=== PATIENT | female | born 1950 | race Caucasian/White ===

== ENCOUNTER 2016-07-25 18:05 | Inpatient (IN) | payer MEDICARE, OTHER ==
--- NOTE | 2016-07-25 18:27 | PDOC ---
History of Present Illness - General History Source: Patient Exam Limitations: No Limitations <Walter Suero - Last Filed: 07/25/16 22:54> <CamiloVanessa Corrie - Last Filed: 07/26/16 02:18> - General Chief Complaint: Chest Pain Stated Complaint: CHEST PAIN/PALPITATION Time Seen by Provider: 07/25/16 18:19 - History of Present Illness Initial Comments: 07/25/16 18:55 The patient is a 65 year old female, with a significant past medical history of AR s/p catherization. AFIB, HTN, kidney stones and HLD, who presents to the emergency department with chest pain and palpitations since 10am this morning. She describes her chest pain as ranging from moderate to severe, without radiation or modifying factors. She notes that the pain started gradually but has progressed. She denies any exertion or stress. She reports that she took all her medications today, including aspiring 81 mg. The patient denies shortness of breath, headache and dizziness. Denies fever, chills, nausea, vomit, diarrhea and constipation. Denies dysuria, frequency, urgency and hematuria. Allergies: None Past surgical history: Cardiac catherization (2011), cholecystectomy Social history: No alcohol, tobacco or drug use reported PMD - Dr. Nikita Hdz [place] ([phone]) (Walter Suero) Past History <Walter Suero - Last Filed: 07/25/16 22:54> - Past Medical History Anemia: No Asthma: No Cancer: No Cardiac Disorders: Yes (mi, afib) CVA: No COPD: No CHF: No Dementia: No Diabetes: No GI Disorders: No Disorders: No HTN: Yes Hypercholesterolemia: No Kidney Stones: Yes Liver Disease: No Psychiatric Problems: Yes (DEPRESSION) Suicide Attempt (Hx): No Seizures: No Thyroid Disease: No - Surgical History Abdominal Surgery: No Appendectomy: No Cardiac Surgery: No (CARD CATH 04/2012) Cholecystectomy: Yes Lung Surgery: No Neurologic Surgery: No Orthopedic Surgery: No - Psycho/Social/Smoking Cessation Hx Anxiety: No Suicidal Ideation: No Smoking Status: No Smoking History: Never smoked Have you smoked in the past 12 months: No Number of Cigarettes Smoked Daily: 0 Hx Alcohol Use: No Drug/Substance Use Hx: No Substance Use Type: None Hx Substance Use Treatment: No <Vanessa Page - Last Filed: 07/26/16 02:18> - Past Medical History Allergies/Adverse Reactions: Allergies Allergy/AdvReac Type Severity Reaction Status Date / Time No Known Drug Allergies Allergy Verified 07/25/16 18:08 Home Medications: Ambulatory Orders Levothyroxine [Synthroid -] 25 mcg PO DAILY 02/02/14 Chlorthalidone [Hygroton -] 25 mg PO DAILY 08/26/15 Metoprolol Tartrate 100 mg PO DAILY 08/26/15 Aspirin [ASA -] 81 mg PO DAILY 07/25/16 Pravastatin Sodium [Pravachol (Nf)] 20 mg PO HS 07/25/16 Cardiac Specific PMH - Complaint Specific PMHX Pacemaker: No <Vanessa Page - Last Filed: 07/26/16 02:18> Review of Systems - Review of Systems Able to Perform ROS?: Yes <Walter Suero - Last Filed: 07/25/16 22:54> <Vanessa Page - Last Filed: 07/26/16 02:18> - Review of Systems Comments:: 07/25/16 19:05 GENERAL/CONSTITUTIONAL: No fever or chills. No weakness. HEAD, EYES, EARS, NOSE AND THROAT: No change in vision. No ear pain or discharge. No sore throat. CARDIOVASCULAR: +Chest pain and palpitations. No shortness of breath RESPIRATORY: No cough, wheezing, or hemoptysis. GASTROINTESTINAL: No nausea, vomiting, diarrhea or constipation. GENITOURINARY: No dysuria, frequency, or change in urination. MUSCULOSKELETAL: No joint or muscle swelling or pain. No neck or back pain. SKIN: No rash NEUROLOGIC: No headache, vertigo, loss of consciousness, or change in strength/ sensation. ENDOCRINE: No increased thirst. No abnormal weight change HEMATOLOGIC/LYMPHATIC: No anemia, easy bleeding, or history of blood clots. ALLERGIC/IMMUNOLOGIC: No hives or skin allergy. (Walter Suero) *Physical Exam <Walter Suero - Last Filed: 07/25/16 22:54> <Vanessa Page - Last Filed: 07/26/16 02:18> - Vital Signs Last Vital Signs Temp Pulse Resp BP Pulse Ox 98.4 F 76 20 105/66 100 07/25/16 20:25 07/25/16 20:25 07/25/16 20:25 07/25/16 20:25 07/25/16 20:25 - Physical Exam Comments: 07/25/16 19:05 GENERAL: Awake, alert, and fully oriented, in no acute distress HEAD: No signs of trauma, normocephalic, atraumatic EYES: PERRLA, EOMI, sclera anicteric, conjunctiva clear ENT: Auricles normal inspection, hearing grossly normal, nares patent, oropharynx clear without exudates. Moist mucosa NECK: Normal ROM, supple, no lymphadenopathy, JVD, or masses LUNGS: No distress, speaks full sentences, clear to auscultation bilaterally HEART: +Tachycardia, normal S1 and S2, no murmurs, rubs or gallops, peripheral pulses normal and equal bilaterally. ABDOMEN: Soft, nontender, normoactive bowel sounds. No guarding, no rebound. No masses EXTREMITIES: Normal inspection, Normal range of motion, no edema. No clubbing or cyanosis. NEUROLOGICAL: Cranial nerves II through XII grossly intact. Normal speech, normal gait, no focal sensorimotor deficits SKIN: Warm, Dry, normal turgor, no rashes or lesions noted. (Walter Suero) Heart Score/ECG Review #1 ECG reviewed & interpreted by me at: 19:05 <Walter Suero - Last Filed: 07/25/16 22:54> - History History: Highly suspicious - Electrocardiogram EKG: Non specific repolarization disturbance - Age Age: >/= 65 - Risk Factors Risk Factors Heart Score: Yes Hx Hypertension, Yes Positive family hx of cardiac disease Based on the list above the patient has:: >/=3 risk factors or Hx atherosclerotic disease - Troponin Troponin: </= normal limit - Score Heart Score - Total: 7 - ECG Intrepretation Rhythm: Irregularly Irregular - ECG Impressions Tachycardia: Afib w/rapid Vent rate (RATE 158 UPON ARRIVAL) <Vanessa Page - Last Filed: 07/26/16 02:18> #1 07/25/16 18:15 Ventricular rate: 158 bpm Atrial fibrillation with rapid ventricular response, minimal voltage criteria for LVH, may be normal variant Inferior infarct, age undetermined Marked ST abnormality, possible lateral subendocardial injury. (Walter Suero) ED Treatment Course - LABORATORY CBC & Chemistry Diagram: 07/25/16 18:20 07/25/16 18:20 <Walter Suero - Last Filed: 07/25/16 22:54> - LABORATORY CBC & Chemistry Diagram: 07/25/16 18:20 07/25/16 18:20 <Vanessa Page - Last Filed: 07/26/16 02:18> - ADDITIONAL ORDERS Additional order review: Laboratory Results 07/25/16 07/25/16 18:20 18:20 INR 0.96 Sodium 143 Potassium 3.4 L Chloride 108 H Carbon Dioxide 27 Anion Gap 8 BUN 26 H Creatinine 1.3 H Creat Clearance w eGFR 41.11 Random Glucose 117 H Calcium 8.5 Total Bilirubin 0.3 D AST 25 D ALT 29 D Alkaline Phosphatase 118 H Creatine Kinase 116 Troponin I < 0.02 Total Protein 7.4 Albumin 3.9 07/25/16 18:20 RBC 4.89 MCV 80.1 MCHC 33.7 RDW 14.1 MPV 8.5 - RADIOLOGY Radiology Studies Ordered: Category Date Time Status CHEST X-RAY PORTABLE* [RAD] Stat Radiology 07/25/16 18:30 Taken Radiograph Interpretation: 07/25/16 19:01 (Walter Suero) - Medications Given in the ED: ED Medications Discontinued Medications Generic Name Dose Route Start Last Admin Trade Name Freq PRN Reason Stop Dose Admin Aspirin 162 mg 07/25/16 18:32 07/25/16 18:58 Asa - PO 07/25/16 18:33 162 mg ONCE ONE Administration Diltiazem HCl 20 mg 07/25/16 18:32 07/25/16 18:33 Cardizem Injection - IVPUSH 07/25/16 18:33 20 mg ONCE ONE Administration Diltiazem HCl 20 mg 07/25/16 20:07 07/25/16 20:24 Cardizem Injection - IVPUSH 07/25/16 20:08 20 mg ONCE ONE Administration Metoprolol Tartrate 25 mg 07/25/16 19:39 07/25/16 20:24 Lopressor - PO 07/25/16 19:40 25 mg ONCE ONE Administration Potassium Chloride 20 meq 07/25/16 19:38 07/25/16 20:24 K-Dur - PO 07/25/16 19:39 20 meq ONCE ONE Administration Medical Decision Making <Walter Suero - Last Filed: 07/25/16 22:54> - Critical Care Time Total Critical Care Time (minutes): 60 Critical Care Statement: The care of this patient involved high complexity decision making to prevent further life threatening deterioration of the patient 's condition and/or to evalute & treat vital organ system(s) failure or risk of failure. <Vanessa Page - Last Filed: 07/26/16 02:18> - Medical Decision Making 07/25/16 19:37 Dr. Nikita Jackman was called regarding the patient. Dr. Chester covering at 6: 54pm Dr. Chester was consulted regarding the patient at 7:38pm [phone] Dr. De La Vega was called regarding the patient at 7:40pm Dr. Sidhu covering. Dr. Sidhu was consulted regarding the patient at 8:00pm [phone] (Walter Suero) 07/26/16 02:13 65 YO female p/w rapid afib @ 158 bpm -responded to [facility] -spoke w Dr Weldon ,covering for Dr Hanna -first troponin is negative (Vanessa Page) *DC/Admit/Observation/Transfer <Walter Suero - Last Filed: 07/25/16 22:54> - Discharge Dispostion Admit: Yes <Vanessa Page - Last Filed: 07/26/16 02:18> Diagnosis at time of Disposition: Rapid atrial fibrillation Chest pain Qualifiers: Chest pain type: precordial pain Qualified Code(s): R07.2 - Precordial pain - Referrals - Attestations Scribe Attestion: 07/25/16 19:09 Documentation prepared by Walter Suero, acting as medical biller coder for Vanessa Page MD (Walter Suero)
[2016-07-25] MEDS ORDERED: dilTIAZem HCL 50 MG/10 ML - 10 ML VIAL ONE (18:30)
[2016-07-25] MEDS ORDERED: dilTIAZem HCL 50 MG/10 ML - 10 ML VIAL IVPUSH ONE ×2 (18:32→20:07)
[2016-07-25] MEDS ORDERED: ASPIRIN 81 MG CHEWABLE TABLETS PO ONE (18:32)
[2016-07-25 18:46] LABS: MCHC 33.7 g/dl (32.0-36.0); MEAN CELL VOLUME 80.1 fl (80-96); MEAN PLT VOLUME 8.5 fl (7.5-11.1); PLATELET COUNT 279 K/MM3 (134-434); RDW 14.1 % (11.6-15.6); WHITE BLOOD COUNT 8.3 K/mm3 (4.0-10.0)
[2016-07-25] MEDS ORDERED: ASPIRIN 81 MG CHEWABLE TABLETS ONE (18:57)
[2016-07-25 19:05] LABS: ALBUMIN 3.9 g/dl (3.4-5.0); ANION GAP 8 (8-16); BILIRUBIN,TOTAL 0.3 mg/dL (0.2-1.0); CALCIUM 8.5 mg/dL (8.5-10.1); CO2 27 mmol/L (21-32); CREATININE 1.3 mg/dL (0.55-1.02); GLUCOSE,RANDOM 117 mg/dL (74-106); SGOT/AST 25 U/L (15-37); SGPT/ALT 29 U/L (12-78); TOT PROT 7.4 g/dl (6.4-8.2)
[2016-07-25 19:07] LABS: ALK PHOS 118 U/L (45-117); TROPONIN I < 0.02 ng/ml (0.00-0.05)
[2016-07-25 19:09] LABS: INR 0.96 (0.82-1.09); PROTHROMBIN TIME (PATIENT) 10.5 SEC (9.98-11.88)
[2016-07-25] MEDS ORDERED: POTASSIUM CHLORIDE TABS 20 MEQ TABLET.ER (FP) PO ONE ×2 (19:38→20:14)
[2016-07-25] MEDS ORDERED: METOPROLOL TARTRATE 25 MG TABLET (FP) PO ONE (19:39)
[2016-07-25] MEDS ORDERED: ENOXAPARIN NA (PORCINE) 60 MG/0.6 ML DISP.SYRIN SQ SCH (20:00)
[2016-07-25] MEDS ORDERED: METOPROLOL TARTRATE 25 MG TABLET (FP) ONE (20:14)
[2016-07-25] MEDS ORDERED: ENOXAPARIN NA (PORCINE) 60 MG/0.6 ML DISP.SYRIN SQ ONE (20:15)
[2016-07-25] MEDS ORDERED: dilTIAZem HCL 125 MG/25 ML - 25 ML VIAL ONE (20:15)
[2016-07-26] MEDS ORDERED: LEVOTHYROXINE NA 25 MCG TABLET (FP) ONE (07:02)
[2016-07-26] MEDS: LEVOTHYROXINE NA 25 MCG TABLET (FP) PO SCH (07:04)
--- NOTE | 2016-07-26 09:10 | HP ---
Admitting History and Physical - Primary Care Physician PCP: Nikita Jackman - Admission Chief Complaint: AFIB. CHEST PAIN History Source: Patient, Family Member, Medical Record Limitations to Obtaining History: No Limitations - Smoking History Smoking history: Never smoked Have you smoked in the past 12 months: No Aproximately how many cigarettes per day: 0 - Alcohol/Substance Use Hx Alcohol Use: No Home Medications - Allergies Allergies/Adverse Reactions: Allergies Allergy/AdvReac Type Severity Reaction Status Date / Time No Known Drug Allergies Allergy Verified 07/25/16 18:08 - Home Medications Home Medications: Ambulatory Orders Levothyroxine [Synthroid -] 25 mcg PO DAILY 02/02/14 Chlorthalidone [Hygroton -] 25 mg PO DAILY 08/26/15 Metoprolol Tartrate 100 mg PO DAILY 08/26/15 Aspirin [ASA -] 81 mg PO DAILY 07/25/16 Pravastatin Sodium [Pravachol (Nf)] 20 mg PO HS 07/25/16 Review of Systems - Review of Systems Constitutional: denies: Chills, Fever Cardiovascular: reports: Chest Pain, Palpitations Respiratory: denies: SOB Gastrointestinal: denies: Abdominal Pain Physical Examination Vital Signs: Vital Signs Temperature 97.7 F 07/26/16 08:03 Pulse Rate 88 07/26/16 08:03 Respiratory Rate 18 07/26/16 08:03 Blood Pressure 119/70 07/26/16 08:03 O2 Sat by Pulse Oximetry (%) 97 07/26/16 08:03 Findings/Remarks: HAD D/W PATIENT & DAUGHTER IN ED Constitutional: Yes: Calm Cardiovascular: Yes: S1, S2 Respiratory: Yes: CTA Bilaterally Gastrointestinal: Yes: Normal Bowel Sounds, Soft Edema: No Imaging - Results Chest X-ray: Report Reviewed Problem List - Problems (1) Chest pain Code(s): R07.9 - CHEST PAIN, UNSPECIFIED Qualifiers: Chest pain type: precordial pain Qualified Code(s): R07.2 - Precordial pain (2) Rapid atrial fibrillation Code(s): I48.91 - UNSPECIFIED ATRIAL FIBRILLATION (3) HTN (hypertension) Code(s): I10 - ESSENTIAL (PRIMARY) HYPERTENSION (4) H/O acute myocardial infarction Code(s): I25.2 - OLD MYOCARDIAL INFARCTION Assessment/Plan The patient is a 65 year old female, with a significant past medical history of AR s/p catherization. AFIB, HTN, kidney stones and HLD, who presents to the emergency department with chest pain and palpitations since 10am this morning. She describes her chest pain as ranging from moderate to severe, without radiation or modifying factors. She notes that the pain started gradually but has progressed. She denies any exertion or stress. She reports that she took all her medications today, including aspiring 81 mg. The patient denies shortness of breath, headache and dizziness. Denies fever, chills, nausea, vomit, diarrhea and constipation. Denies dysuria, frequency, urgency and hematuria. Allergies: None Past surgical history: Cardiac catherization (2011), cholecystectomy Social history: No alcohol, tobacco or drug use reported PMD - Dr. Nikita Jackman Son - Tom Wood ([phone]) (1) Chest pain Code(s): R07.9 - CHEST PAIN, UNSPECIFIED Qualifiers: Chest pain type: precordial pain Qualified Code(s): R07.2 - Precordial pain TROP NEG x 2 CARDIO ON CASE (2) Rapid atrial fibrillation Code(s): I48.91 - UNSPECIFIED ATRIAL FIBRILLATION NOAC TELE (3) HTN (hypertension) Code(s): I10 - ESSENTIAL (PRIMARY) HYPERTENSION (4) H/O acute myocardial infarction Code(s): I25.2 - OLD MYOCARDIAL INFARCTION DISCHARGE PLANNING [facility]
[2016-07-26 10:33] LABS: TROPONIN I < 0.02 ng/ml (0.00-0.05)
[2016-07-26] MEDS: ASPIRIN 81 MG CHEWABLE TABLETS PO SCH (10:38)
[2016-07-26] MEDS: METOPROLOL TARTRATE 50 MG TABLET (FP) PO SCH ×2 (10:39→21:22)
[2016-07-26] MEDS: CHLORTHALIDONE 25 MG TABLET PO SCH (10:39)
--- NOTE | 2016-07-26 12:36 | CON.CARD ---
Consult Consult Specialty:: Cardiology Reason for Consultation:: palpitation cp - History of Present Illness Chief Complaint: palpitations cp History of Present Illness: The patient is a 65 year old female, with a significant past medical history PAFIB, HTN, kidney stones and HLD, who presents to the emergency department with chest pain and palpitations since 10am this morning. She describes her chest pain as ranging from moderate to severe, without radiation or modifying factors. She notes that the pain started gradually but has progressed. She denies any exertion or stress. She reports that she took all her medications today, including aspiring 81 mg. The patient denies shortness of breath, headache and dizziness. Denies fever, chills, nausea, vomit, diarrhea and constipation. Denies dysuria, frequency, urgency and hematuria. Allergies: None Past surgical history: Cardiac catherization (2011), cholecystectomy Social history: No alcohol, tobacco or drug use reported PMD - Dr. Nikita Jackman [facility] [place] ([phone]) PM C. Cath mild non-obstructive disease 2011 HHD HTN paroxysmal Atrial Fibrilation 2010 - History Source History Provided By: Patient, Family Member, Medical Record - Past Medical History Cardio/Vascular: Yes: HTN, Hyperlipdemia Endocrine: Yes: Hypothyroidism - Alcohol/Substance Use Hx Alcohol Use: No - Smoking History Smoking history: Never smoked Have you smoked in the past 12 months: No Aproximately how many cigarettes per day: 0 Home Medications - Allergies Allergies/Adverse Reactions: Allergies Allergy/AdvReac Type Severity Reaction Status Date / Time No Known Drug Allergies Allergy Verified 07/25/16 18:08 - Home Medications Home Medications: Ambulatory Orders Levothyroxine [Synthroid -] 25 mcg PO DAILY 02/02/14 Chlorthalidone [Hygroton -] 25 mg PO DAILY 08/26/15 Metoprolol Tartrate 100 mg PO DAILY 08/26/15 Aspirin [ASA -] 81 mg PO DAILY 07/25/16 Pravastatin Sodium [Pravachol (Nf)] 20 mg PO HS 07/25/16 Review of Systems - Review of Systems Constitutional: reports: No Symptoms Eyes: reports: No Symptoms HENT: reports: No Symptoms Neck: reports: No Symptoms Cardiovascular: reports: Chest Pain, Palpitations Gastrointestinal: reports: No Symptoms Genitourinary: reports: No Symptoms Breasts: reports: No Symptoms Reported Musculoskeletal: reports: No Symptoms Integumentary: reports: No Symptoms Neurological: reports: No Symptoms Endocrine: reports: No Symptoms Hematology/Lymphatic: reports: No Symptoms Psychiatric: reports: No Symptoms Vital Signs: Vital Signs Temperature 97.9 F 07/26/16 10:38 Pulse Rate 75 07/26/16 11:43 Respiratory Rate 18 07/26/16 11:43 Blood Pressure 128/85 07/26/16 11:43 O2 Sat by Pulse Oximetry (%) 96 07/26/16 11:43 Constitutional: Yes: Well Nourished, No Distress, Calm Eyes: Yes: WNL, Conjunctiva Clear, EOM Intact HENT: Yes: WNL, Atraumatic, Normocephalic Neck: Yes: WNL, Supple, Trachea Midline Respiratory: Yes: WNL, Regular, CTA Bilaterally Gastrointestinal: Yes: WNL, Normal Bowel Sounds Renal/: Yes: WNL Cardiovascular: Yes: Pulse Irregular Musculoskeletal: Yes: WNL Extremities: Yes: WNL Integumentary: Yes: WNL Neurological: Yes: WNL, Alert, Oriented ...Motor Strength: WNL Psychiatric: Yes: WNL, Alert, Oriented - Other Data Labs, Other Data: INR, PTT INR 0.96 (0.82-1.09) 07/25/16 18:20 Troponin, BNP 07/26/16 09:55 Troponin I < 0.02 Troponin, BNP 07/26/16 09:55 Troponin I < 0.02 Laboratory Results - last 24 hr 07/25/16 07/25/16 07/25/16 18:20 18:20 18:20 WBC 8.3 RBC 4.89 Hgb 13.2 D Hct 39.2 MCV 80.1 MCHC 33.7 RDW 14.1 Plt Count 279 MPV 8.5 INR 0.96 Sodium 143 Potassium 3.4 L Chloride 108 H Carbon Dioxide 27 Anion Gap 8 BUN 26 H Creatinine 1.3 H Creat Clearance w eGFR 41.11 Random Glucose 117 H Calcium 8.5 Total Bilirubin 0.3 D AST 25 D ALT 29 D Alkaline Phosphatase 118 H Creatine Kinase 116 Troponin I < 0.02 Total Protein 7.4 Albumin 3.9 07/26/16 09:55 WBC RBC Hgb Hct MCV MCHC RDW Plt Count MPV INR Sodium Potassium Chloride Carbon Dioxide Anion Gap BUN Creatinine Creat Clearance w eGFR Random Glucose Calcium Total Bilirubin AST ALT Alkaline Phosphatase Creatine Kinase 80 Troponin I < 0.02 Total Protein Albumin Imaging - Results Chest X-ray: Image Reviewed (no i/e) EKG: Image Reviewed (af rvr) Problem List - Problems (1) Chest pain Code(s): R07.9 - CHEST PAIN, UNSPECIFIED Qualifiers: Chest pain type: precordial pain Qualified Code(s): R07.2 - Precordial pain (2) Rapid atrial fibrillation Code(s): I48.91 - UNSPECIFIED ATRIAL FIBRILLATION (3) Arm paresthesia, left Code(s): R20.2 - PARESTHESIA OF SKIN (4) Back pain Code(s): M54.9 - DORSALGIA, UNSPECIFIED (5) Cervical radicular pain Code(s): M54.12 - RADICULOPATHY, CERVICAL REGION (6) Left knee sprain Code(s): S83.92XA - SPRAIN OF UNSPECIFIED SITE OF LEFT KNEE, INITIAL ENCOUNTER Qualifiers: Encounter type: initial encounter Involved ligament of knee: medial collateral ligament Qualified Code(s): S83.412A - Sprain of medial collateral ligament of left knee, initial encounter (7) Shoulder pain Code(s): M25.519 - PAIN IN UNSPECIFIED SHOULDER (8) UTI (lower urinary tract infection) Code(s): N39.0 - URINARY TRACT INFECTION, SITE NOT SPECIFIED Assessment/Plan C. 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
[2016-07-26 13:16] VITALS: BMI 32.2
[2016-07-26] MEDS: RIVAROXABAN 20 MG TABLET PO SCH (14:00)
[2016-07-26] MEDS ORDERED: ATORVASTATIN CA 10 MG TABLET (FP) PO SCH (22:00)
[2016-07-27] MEDS: LEVOTHYROXINE NA 25 MCG TABLET (FP) PO SCH (06:08)
[2016-07-27 07:13] LABS: BASOPHIL 0.4 % (0-2.0); EOSINOPHIL 2.5 % (0-4.5); MCH 26.9 pg (25.7-33.7); MCHC 33.3 g/dl (32.0-36.0); MEAN CELL VOLUME 80.7 fl (80-96); MEAN PLT VOLUME 8.5 fl (7.5-11.1); NEUTROPHILS 55.2 % (42.8-82.8); PLATELET COUNT 234 K/MM3 (134-434); RDW 13.8 % (11.6-15.6); WHITE BLOOD COUNT 6.2 K/mm3 (4.0-10.0)
[2016-07-27 07:46] LABS: ALBUMIN 3.3 g/dl (3.4-5.0); CALCIUM 8.7 mg/dL (8.5-10.1)
[2016-07-27 07:58] LABS: BILIRUBIN,TOTAL 0.4 mg/dL (0.2-1.0); CREATININE 1.1 mg/dL (0.55-1.02); THYROID STIMULATING HORMONE 3.32 uIU/ml (0.358-3.74); TOT PROT 6.5 g/dl (6.4-8.2)
[2016-07-27] MEDS: CHLORTHALIDONE 25 MG TABLET PO SCH (10:05)
[2016-07-27] MEDS: RIVAROXABAN 20 MG TABLET PO SCH (10:06)
[2016-07-27] MEDS: ASPIRIN 81 MG CHEWABLE TABLETS PO SCH (10:06)
[2016-07-27] MEDS: METOPROLOL TARTRATE 50 MG TABLET (FP) PO SCH (10:06)
--- NOTE | 2016-07-27 10:15 | PN ---
Progress Note, Physician History of Present Illness: The patient is a 65 year old female, with a significant past medical history of SD s/p catherization. AFIB, HTN, kidney stones and HLD, who presents to the emergency department with chest pain and palpitations since 10am this morning. She describes her chest pain as ranging from moderate to severe, without radiation or modifying factors. She notes that the pain started gradually but has progressed. She denies any exertion or stress. She reports that she took all her medications today, including aspiring 81 mg. The patient denies shortness of breath, headache and dizziness. Denies fever, chills, nausea, vomit, diarrhea and constipation. Denies dysuria, frequency, urgency and hematuria. - Current Medication List Current Medications: Active Medications Aspirin (Asa -) 81 mg PO DAILY [facility] Last Admin: 07/27/16 10:06 Dose: 81 mg Atorvastatin Calcium (Lipitor -) 10 mg PO HS [facility] Last Admin: 07/26/16 21:22 Dose: 10 mg Chlorthalidone (Hygroton -) 25 mg PO DAILY [facility] Last Admin: 07/27/16 10:05 Dose: 25 mg Levothyroxine Sodium (Synthroid -) 25 mcg PO DAILY@0700 [facility] Last Admin: 07/27/16 06:08 Dose: 25 mcg Metoprolol Tartrate (Lopressor -) 50 mg PO BID [facility] Last Admin: 07/27/16 10:06 Dose: 50 mg Rivaroxaban (Xarelto -) 20 mg PO DAILY [facility] Last Admin: 07/27/16 10:06 Dose: 20 mg - Objective Vital Signs: Vital Signs Temperature 97.7 F 07/27/16 05:44 Pulse Rate 68 07/27/16 05:44 Respiratory Rate 17 07/27/16 05:44 Blood Pressure 132/75 07/27/16 05:44 O2 Sat by Pulse Oximetry (%) 98 07/27/16 05:44 Labs: CBC, BMP 07/27/16 05:35 07/27/16 05:35 INR, PTT INR 0.96 (0.82-1.09) 07/25/16 18:20 Problem List - Problems (1) Chest pain Assessment/Plan: negative TNI NO arrhythmias on telemetry. From a cardiac standpint, pt may be followed as an outpatient. Code(s): R07.9 - CHEST PAIN, UNSPECIFIED Qualifiers: Chest pain type: precordial pain Qualified Code(s): R07.2 - Precordial pain
[2016-07-27 14:57] VITALS: BP 128/74; PULSE 65; TEMP 99
--- NOTE | 2016-07-27 16:33 | DS ---
Physical Examination Vital Signs: Vital Signs Temperature 99 F 07/27/16 14:00 Pulse Rate 65 07/27/16 14:00 Respiratory Rate 20 07/27/16 14:00 Blood Pressure 128/74 07/27/16 14:00 O2 Sat by Pulse Oximetry (%) 96 07/27/16 09:00 Constitutional: Yes: No Distress Eyes: Yes: WNL HENT: Yes: WNL Neck: Yes: WNL Cardiovascular: Yes: WNL Respiratory: Yes: WNL Gastrointestinal: Yes: WNL Renal/: Yes: WNL Musculoskeletal: Yes: Joint Swelling, Muscle Weakness Extremities: Yes: WNL Edema: Yes Edema: LLE: 1+ Peripheral Pulses WNL: Yes Integumentary: Yes: WNL Wound/Incision: Yes: Clean/Dry Neurological: Yes: WNL ...Motor Strength: LLE Psychiatric: Yes: WNL Labs: CBC, BMP 07/27/16 05:35 07/27/16 05:35 Discharge Summary Reason For Visit: A-FIB CHEST PAIN Current Active Problems Chest pain (Acute) H/O acute myocardial infarction (Acute) HTN (hypertension) (Acute) Rapid atrial fibrillation (Acute) Procedures: Principal: telemetry Other Procedures: worked up cardiac , continue outpatient Hospital Course: can see dr palacios as outpatient , medically cleared after workup. ankle xray shows loose body , see pmd and orthopedics as outpatient Condition: Improved - Instructions Diet, Activity, Other Instructions: low fat/salt Referrals: Nikita Jackman [Primary Care Provider] - Disposition: HOME - Home Medications Comprehensive Discharge Medication List: Ambulatory Orders RX: Levothyroxine [Synthroid -] 25 mcg PO DAILY 02/02/14 RX: Chlorthalidone [Hygroton -] 25 mg PO DAILY 08/26/15 RX: Metoprolol Tartrate 100 mg PO DAILY 08/26/15 RX: Aspirin [ASA -] 81 mg PO DAILY 07/25/16 RX: Pravastatin Sodium [Pravachol -] 20 mg PO HS 07/25/16 RX: Atorvastatin Ca [Lipitor] 10 mg PO HS #30 tablet 07/27/16 RX: Rivaroxaban [Xarelto -] 20 mg PO DAILY #30 tablet 07/27/16
--- NOTE | 2016-07-27 17:15 | EKG ---
Test Reason : Blood Pressure : / mmHG Vent. Rate : 106 BPM Atrial Rate : 120 BPM P-R Int : 000 ms QRS Dur : 078 ms QT Int : 380 ms P-R-T Axes : 000 021 089 degrees QTc Int : 504 ms ATRIAL FIBRILLATION WITH RAPID VENTRICULAR RESPONSE WITH PREMATURE VENTRICULAR OR ABERRANTLY CONDUCTED COMPLEXES CANNOT RULE OUT INFERIOR INFARCT (CITED ON OR BEFORE 25-JUL-2008) ABNORMAL ECG WHEN COMPARED WITH ECG OF JUL 25 2016 VENT. RATE HAS DECREASED PREMATURE VENTRICULAR COMPLEXES ARE SEEN Confirmed by MAITE WOODWARD MD ([id number]) on 07/27/2016 5:14:41 PM Referred By: Confirmed By:MAITE WOODWARD MD
--- NOTE | 2016-07-28 12:33 | EKG ---
Test Reason : Blood Pressure : / mmHG Vent. Rate : 158 BPM Atrial Rate : 166 BPM P-R Int : 000 ms QRS Dur : 076 ms QT Int : 284 ms P-R-T Axes : 000 024 239 degrees QTc Int : 460 ms ATRIAL FIBRILLATION WITH RAPID VENTRICULAR RESPONSE MINIMAL VOLTAGE CRITERIA FOR LVH, MAY BE NORMAL VARIANT INFERIOR INFARCT (CITED ON OR BEFORE 25-JUL-2008) CANNOT RULE OUT ANTERIOR INFARCT (CITED ON OR BEFORE 09-DEC-2010) MARKED ST ABNORMALITY, POSSIBLE LATERAL SUBENDOCARDIAL INJURY ABNORMAL ECG WHEN COMPARED WITH ECG OF 17-OCT-2013 11:27, ATRIAL FIBRILLATION HAS REPLACED SINUS RHYTHM VENT. RATE HAS INCREASED BY [address] NOW DEPRESSED IN LATERAL LEADS NONSPECIFIC T WAVE ABNORMALITY, WORSE IN INFERIOR LEADS Confirmed by KOKO VAZQUEZ, RICK ([id number]) on 07/28/2016 12:32:48 PM Referred By: Confirmed By:RICK SUTHERLAND MD
== END 2016-07-27 17:19 | disposition home or self-care (01) | DRG 310 ==
LOC: JER 18:05 → JERBED 19:42 → J4W 07-26 11:55
PROVIDERS: ADMIT Family Medicine; ATTEND Family Medicine
DX: I48.91 Unspecified atrial fibrillation (principal); E78.5 Hyperlipidemia, unspecified; R07.2 Precordial pain; I25.2 Old myocardial infarction; I10 Essential (primary) hypertension; F32.9 Major depressive disorder, single episode, unspecified; E03.9 Hypothyroidism, unspecified; Z95.5 Presence of coronary angioplasty implant and graft; Z87.442 Personal history of urinary calculi
CPT/HCPCS: 36415; 71010-TC; 73610-TC-LT; 80053; 82550; 84443; 84484; 85025; 85027; 85610; 93005; 93010; 99285-25

== ENCOUNTER 2017-06-14 16:25 | Inpatient (IN) | payer MEDICARE, OTHER ==
--- NOTE | 2017-06-14 16:28 | PDOC ---
Rapid Medical Evaluation Time Seen by Provider: 06/14/17 16:27 Medical Evaluation: Allergies Allergy/AdvReac Type Severity Reaction Status Date / Time No Known Drug Allergies Allergy Verified 07/25/16 18:08 06/14/17 16:29 66 year old female with history of Afib on Metoprolol/Xarelto, HTN, HLD sent from Dr. De La Vega's office with stroke symptoms. Reports palpitations, dizziness/lightheadedness/near syncope, intermittent "black" vision, and left arm numbness and "shaking." Symptoms started at 2am. -Taken to [facility] -Stroke labs ordered -To Main ED for further evaluation -Code Rodney not called as patient well outside window for tPA
[2017-06-14] MEDS ORDERED: SODIUM CHLORIDE 1,000 ML IV SCH (16:30)
[2017-06-14 16:49] VITALS: BMI 32.8
--- NOTE | 2017-06-14 17:07 | PDOC ---
History of Present Illness - General History Source: Patient, Family Exam Limitations: Language Barrier (Son was translating) - History of Present Illness Initial Comments: 06/14/17 17:15 The patient is a 66F with a PMH of HTN and a-fib (on xarelto) who presents to the ER from her cardiologists office (Dr. De La Vega) for L arm weakness. The patient states that since 2 am, she's felt lightheaded and near-syncopal. She decided to make an appointment with her aeronautical design engineer. At her cardiologists office, she explained that she had sudden onset weakness of her L arm. They sent her immediately to the ER. She is currently complaining of CP, neck pain b/ l, and L arm weakness and shoulder pain. She denies any other symptoms. <Tejas Nunez - Last Filed: 06/14/17 19:24> <Vanessa Page - Last Filed: 06/14/17 21:24> - General Chief Complaint: CVA/TIA Stated Complaint: FATIGUE Time Seen by Provider: 06/14/17 16:27 Past History - Past Medical History Anemia: No Asthma: No Cancer: No Cardiac Disorders: Yes (mi, afib) CVA: No COPD: No CHF: No Dementia: No Diabetes: No GI Disorders: No Disorders: No HTN: Yes Hypercholesterolemia: No Kidney Stones: Yes Liver Disease: No Psychiatric Problems: Yes (DEPRESSION) Seizures: No Thyroid Disease: No - Surgical History Abdominal Surgery: No Appendectomy: No Cardiac Surgery: No (CARD CATH 04/2012) Cholecystectomy: Yes Lung Surgery: No Neurologic Surgery: No Orthopedic Surgery: No - Immunization History Immunization Up to Date: No - Suicide/Smoking/Psychosocial Hx Smoking Status: No Smoking History: Never smoked Have you smoked in the past 12 months: No Number of Cigarettes Smoked Daily: 0 Information on smoking cessation initiated: No Hx Alcohol Use: No Drug/Substance Use Hx: No Substance Use Type: None Hx Substance Use Treatment: No <Tejas Nunez - Last Filed: 06/14/17 19:24> <Vanessa Page - Last Filed: 06/14/17 21:24> - Past Medical History Allergies/Adverse Reactions: Allergies Allergy/AdvReac Type Severity Reaction Status Date / Time No Known Drug Allergies Allergy Verified 06/14/17 16:44 Home Medications: Ambulatory Orders Levothyroxine [Synthroid -] 25 mcg PO DAILY 02/02/14 Aspirin [ASA -] 81 mg PO DAILY 07/25/16 Pravastatin Sodium [Pravachol -] 40 mg PO HS 07/25/16 Rivaroxaban [Xarelto -] 20 mg PO DAILY #30 tablet 07/27/16 Metoprolol Succinate [Toprol Xl] 100 mg PO DAILY 06/14/17 Omeprazole 40 mg PO DAILY 06/14/17 Review of Systems - Review of Systems Able to Perform ROS?: Yes Comments:: 06/14/17 18:57 GENERAL/CONSTITUTIONAL: No fever or chills. No weakness. HEAD, EYES, EARS, NOSE AND THROAT: No change in vision. No ear pain or discharge. No sore throat. CARDIOVASCULAR: Positive for CP. No palpitations or lightheadedness. RESPIRATORY: No cough, wheezing, shortness of breath, or hemoptysis. GASTROINTESTINAL: No nausea, vomiting, diarrhea, constipation, or abdominal pain. GENITOURINARY: No dysuria, frequency, hematuria, or change in urination. MUSCULOSKELETAL: Positive for neck pain. No joint or muscle swelling or pain. SKIN: No rash or lesions. NEUROLOGIC: Positive for L arm weakness. No headache, numbness, tingling, loss of consciousness, or change in strength/sensation. ENDOCRINE: No increased thirst. No abnormal weight change. HEMATOLOGIC/LYMPHATIC: No anemia, easy bleeding, or history of blood clots. ALLERGIC/IMMUNOLOGIC: No hives or skin allergy. Is the patient limited Telugu proficient: No <Tejas Nunez - Last Filed: 06/14/17 19:24> *Physical Exam - Vital Signs Last Vital Signs Temp Pulse Resp BP Pulse Ox 98.1 F 112 H 20 140/85 99 06/14/17 16:44 06/14/17 16:44 06/14/17 16:44 06/14/17 16:44 06/14/17 16:44 - Physical Exam Comments: 06/14/17 19:02 GENERAL: Well developed, well nourished. Awake and alert. No acute distress. HEENT: Normocephalic, atraumatic. Hearing grossly normal. Moist mucous membranes. PERRLA, EOMI. No conjunctival pallor. Sclera are non-icteric. NECK: Supple. Full ROM. No JVD. CARDIOVASCULAR: Irregularly irregular rhythm. No murmurs, rubs, or gallops. Distal pulses are 2+ and symmetric. PULMONARY: No evidence of respiratory distress. Lungs clear to auscultation bilaterally. No wheezing, rales or rhonchi. ABDOMINAL: Soft. Non-tender. Non-distended. No rebound or guarding. MUSCULOSKELETAL: Normal range of motion at all joints. No bony deformities or tenderness. EXTREMITIES: No cyanosis. No clubbing. No edema. No calf tenderness. SKIN: Warm and dry. Normal capillary refill. No rashes. No jaundice. NEUROLOGICAL: Alert, awake, appropriate. Cranial nerves 2-12 intact. No deficits to light touch and temperature in face, upper extremities and lower extremities. 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 Normal finger to nose b/ l. Normal speech. Gait is normal without ataxia. PSYCHIATRIC: Cooperative. Good eye contact. Appropriate mood and affect. <Tejas Nunez - Last Filed: 06/14/17 19:24> - Vital Signs Last Vital Signs Temp Pulse Resp BP Pulse Ox 98.1 F 103 H 18 135/76 98 06/14/17 16:44 06/14/17 17:38 06/14/17 17:38 06/14/17 17:38 06/14/17 17:38 <Vanessa Page - Last Filed: 06/14/17 21:24> NIH Stroke Scale - Last Known Well Date/Time & Onset Date Last Known Well: 06/14/17 Time Last Known Well: 02:00 - Initial Evaluation Level of consciousness: Alert Ask patient the month and their age: Answers both correctly Ask patient to open & close eyes; make fist and let go: Obeys both correctly Best gaze (horizontal eye movement): Normal Visual field testing: No visual field loss Facial paresis (Show teeth/raise eyebrows/close eyes tight): Normal symmetrical movement Motor Function: Left Arm: Drift Motor Function: Right Arm: Normal (extends arm 90 (or 45) degrees for 10 seconds without drift Motor Function: Left Leg: Normal (extends leg 30 degrees for 5 seconds without drift) Motor Function: Right Leg: Normal (extends leg 30 degrees for 5 seconds without drift) Limb Ataxia: Present in one limb Sensory(Use pinprick test arms,legs,trunk,face/side to side): Normal Best language (Describe picture, name items, read sentences): No Aphasia Dysarthria (read several words): Normal articulation Extinction and Inattention: No abnormality - Total Score NIH Stroke Scale Score: 2 <Tejas Nunez - Last Filed: 06/14/17 19:24> tPA Exclusion checklist 3-4.5h - Time Elapsed Date last known well: 06/14/17 Time last known well: 02:00 Elaspsed time: Day(s) and 17 Hour(s) and 24 Minutes - Ineligibility reason(s) Reasons No tPA given: Outside of window - delayed arrival <Tejas Nunez - Last Filed: 06/14/17 19:24> Heart Score/ECG Review #1 ECG reviewed & interpreted by me at: 16:59 General ECG Interpretation: Sinus Rhythm, Normal Rate, Normal Intervals, No acute ischemic changes Compared to previous ECG there are: No significant change 06/14/17 18:09 A fib rate 125 QRS 80 QTc 470 <Tejas Nunez - Last Filed: 06/14/17 19:24> Critical Care Time/MDM Note - Medical Decision Making Note: 06/14/17 19:25 Pt is a 66F with a PMH of HTN and a-fib on xarelto. The patient has not taken xarelto since March. I am concerned for a vertebral/carotid artery pathology, and ACS. She is in a-fib with RVR. Because she is not anticoagulated , she may have had an embolic stroke. Dr. Quigley was curbsided and does not believe this is neurologic in nature but recommends continuing to f/u with diagnostic testing. Pending labs and imaging and will be admitted to hospitalist. ASA and xarelto given. Pt signed out to night team, Dr. Molina. <Tejas Nunez - Last Filed: 06/14/17 19:24> Discharge Disposition <Tejas Nunez - Last Filed: 06/14/17 19:24> - Discharge Dispostion Admit: Yes <Vanessa Page - Last Filed: 06/14/17 21:24> - Diagnosis Cerebrovascular accident (CVA) Qualifiers: CVA mechanism: unspecified Qualified Code(s): I63.9 - Cerebral infarction, unspecified Shoulder pain Qualifiers: Chronicity: unspecified Laterality: left Qualified Code(s): M25.512 - Pain in left shoulder HTN (hypertension) Qualifiers: Hypertension type: essential hypertension Qualified Code(s): I10 - Essential ( primary) hypertension Chest pain Qualifiers: Chest pain type: precordial pain Qualified Code(s): R07.2 - Precordial pain - Referrals Referrals: Nikita Jackman [Primary Care Provider] -
[2017-06-14 17:23] LABS: BASO % 0.4 % (0-2.0); EOS % 0.9 % (0-4.5); HEMATOCRIT 40.9 % (32.4-45.2); HEMOGLOBIN 13.7 GM/dL (10.7-15.3); LYMPH % 34.2 % (8-40); MCH 26.6 pg (25.7-33.7); MCHC 33.4 g/dl (32.0-36.0); MEAN CELL VOLUME 79.7 fl (80-96); MEAN PLT VOLUME 8.3 fl (7.5-11.1); MONO % 6.1 % (3.8-10.2); NEUT % 58.4 % (42.8-82.8); PLATELET COUNT 322 K/MM3 (134-434); RBC 5.13 M/mm3 (3.60-5.2); RDW 14.2 % (11.6-15.6); WHITE BLOOD COUNT 7.5 K/mm3 (4.0-10.0)
[2017-06-14 17:42] LABS: INR 1.04 (0.82-1.09); PROTHROMBIN TIME (PATIENT) 11.7 SEC (9.98-11.88)
[2017-06-14] MEDS ORDERED: ASPIRIN 325 MG TABLET PO ONE (18:00)
[2017-06-14] MEDS ORDERED: ASPIRIN 325 MG TABLET ONE (18:04)
[2017-06-14 18:17] LABS: ALBUMIN 3.8 g/dl (3.4-5.0); ANION GAP 9 (8-16); CALCIUM 8.6 mg/dL (8.5-10.1); CHLORIDE 106 mmol/L (98-107); CHOLESTEROL 180 mg/dL (50-200); CO2 26 mmol/L (21-32); CREATININE 1.2 mg/dL (0.55-1.02); GLUCOSE,RANDOM 83 mg/dL (74-106); POTASSIUM 3.8 mmol/L (3.5-5.1); SGOT/AST 16 U/L (15-37); SGPT/ALT 22 U/L (12-78); SODIUM 141 mmol/L (136-145)
--- NOTE | 2017-06-14 18:29 | PDOC ---
Attending Attestation - [facility] HPI: Patient Son: Tom Prieto [phone] <NimoWalter Laxmi - Last Filed: 06/14/17 20:02> - Resident Resident Name: Tejas Nunez - ED Attending Attestation I have performed the following: I have examined & evaluated the patient, The case was reviewed & discussed with the resident, I agree w/resident's findings & plan, Exceptions are as noted - HPI HPI: 06/14/17 18:21 66-year-old female sent from Dr. De La Vega's office for left arm weakness this started at 2 PM -Family stated that last evening a.m. she felt dizzy, lightheaded, but did not have any weakness in her arm and made the appt w the bricklayer helper because of the dizziness -See a bricklayer helper because she felt dizzy. Past medical history of atrial fibrillation. He stopped taking his her elbow in February . CAT scan did not show any acute intracranial pathology, no midline shift, no edema, no infarct or acute bleed. NIH stroke scale was 2. It's not clear if the left arm drift is due to pain that she has in that left shoulder arm and not real weakness - Physicial Exam PE: 06/14/17 21:15 66 yo female p/w complaint left arm numbness,tingling,pain head ncat neck supple,no bruits throat wnl lungs cta b.l cvs [id number] abd soft nontender ext no e/c/c neruo sl left arm drift versus left shoulder pain and unable to keep arm up due to pain,no facial droop, no slurred speech skin warm,dry psych appropriate - Medical Decision Making 06/14/17 21:22 bricklayer helper wants pt admitted telemetry r/o [place] ct scan no acute intracranial pathology ADMIT telemetry,MRI <Vanessa Page - Last Filed: 06/14/17 21:23>
[2017-06-14] MEDS: RIVAROXABAN 20 MG TABLET PO SCH (18:44)
[2017-06-14 20:05] LABS: ALK PHOS 94 U/L (45-117); BILIRUBIN,TOTAL 0.5 mg/dL (0.2-1.0); HDL CHOLESTEROL 45 mg/dL (40-60); LDL CHOLESTEROL (ONLY SJRH) 105 mg/dL (5-100); TOT PROT 7.3 g/dl (6.4-8.2); TRIGLYCERIDES 293 mg/dL (35-160)
[2017-06-14 20:08] LABS: BLOOD UREA NITROGEN 25 mg/dL (7-18)
--- NOTE | 2017-06-14 20:42 | CON.NEURO ---
Consult - Past Medical History Cardio/Vascular: Yes: HTN, Hyperlipdemia Endocrine: Yes: Hypothyroidism - Alcohol/Substance Use Hx Alcohol Use: No - Smoking History Smoking history: Never smoked Have you smoked in the past 12 months: No Aproximately how many cigarettes per day: 0 Home Medications - Allergies Allergies/Adverse Reactions: Allergies Allergy/AdvReac Type Severity Reaction Status Date / Time No Known Drug Allergies Allergy Verified 06/14/17 16:44 - Home Medications Home Medications: Ambulatory Orders Levothyroxine [Synthroid -] 25 mcg PO DAILY 02/02/14 Aspirin [ASA -] 81 mg PO DAILY 07/25/16 Pravastatin Sodium [Pravachol -] 40 mg PO HS 07/25/16 Rivaroxaban [Xarelto -] 20 mg PO DAILY #30 tablet 07/27/16 Metoprolol Succinate [Toprol Xl] 100 mg PO DAILY 06/14/17 Omeprazole 40 mg PO DAILY 06/14/17 Physical Exam-Neuro Vital Signs: Vital Signs Temperature 98.1 F 06/14/17 16:44 Pulse Rate 103 H 06/14/17 17:38 Respiratory Rate 18 06/14/17 17:38 Blood Pressure 135/76 06/14/17 17:38 O2 Sat by Pulse Oximetry (%) 98 06/14/17 17:38 Labs: CBC, BMP 06/14/17 17:03 06/14/17 17:03 INR, PTT INR 1.04 (0.82-1.09) 06/14/17 17:03 Assessment/Plan cc Left arm weakness HPI 66 year old female history of HTN, Atrial fibrillation. She presented with feeling of dizzy and lightheadedness , came to see her filtering machine tender and felt her arm is weak. She also complainof neck pain and chest pain. She denies any similar symptoms in past. She denies any trauma, fever or cancer. She also feel she have shoulder pain and that is affecting her hand. Her initial ct head was unremarkable and her vitals were stable in ed. 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 and at times she is able to put up very good effort proximally there is no weakess of bicep or deltoid sensation is normal Nih score is 0 adn swallowing is normal ct head unremarkable Assessment-- 66 year old female history of atrial fibrillation and HTN complain of dizziness , left arm weakness and neck pain less likely to be Stroke Plan -- Concur with ED assessment for Rule out dissection and possibility of cervical radiculopathy cant be ruled out -Suggest to do mri of brain and cervical spine - continue anticoagulation and statin - pt , dvt prophylaxis Thanking you so much Setfan Quigley MD
[2017-06-14] MEDS ORDERED: SODIUM CHLORIDE 1,000 ML IV STA (20:58)
--- NOTE | 2017-06-14 21:36 | HP ---
Admitting History and Physical - Primary Care Physician PCP: Fabricio Johansen - Admission Chief Complaint: Left Arm Pain/Weakness History of Present Illness: This is a 66 y/o woman with a past medical history of HTN, HLD, Hypothyroid, Afib (on Xarelto). Who presents to the ED from the oil sales and service rep's office for L- arm pain and weakness. Patient is Vietnamese speaking, [facility], #[id number]. Patient reports having left sided CP that radiated to her left arm with weakness- now resolved. Patient also reports not taking her Xarelto for the last 3 months because her Rx ran out. Patient denies fever, chills, cough, dizziness, palpitations, AP, N/V/D, constipation, dysuria. History Source: Patient Limitations to Obtaining History: Language Barrier (Vietnamese) - Past Medical History Cardiovascular: Yes: AFIB, HTN, Hyperlipdemia Endocrine: Yes: Hypothyroidism - Past Surgical History Past Surgical History: Yes: Cholecystectomy Additional Past Surgical History: Cardiac Cath (2011) - Smoking History Smoking history: Never smoked Have you smoked in the past 12 months: No Aproximately how many cigarettes per day: 0 - Alcohol/Substance Use Hx Alcohol Use: No History of Substance Use: reports: None - Social History Usual Living Arrangement: Yes: Alone ADL: Independent History of Recent Travel: No Home Medications - Allergies Allergies/Adverse Reactions: Allergies Allergy/AdvReac Type Severity Reaction Status Date / Time No Known Drug Allergies Allergy Verified 06/14/17 16:44 - Home Medications Home Medications: Ambulatory Orders Levothyroxine [Synthroid -] 25 mcg PO DAILY 02/02/14 Aspirin [ASA -] 81 mg PO DAILY 07/25/16 Pravastatin Sodium [Pravachol -] 40 mg PO HS 07/25/16 Rivaroxaban [Xarelto -] 20 mg PO DAILY #30 tablet 07/27/16 Metoprolol Succinate [Toprol Xl] 100 mg PO DAILY 06/14/17 Omeprazole 40 mg PO DAILY 06/14/17 Review of Systems - Review of Systems Constitutional: reports: No Symptoms Eyes: reports: No Symptoms HENT: reports: No Symptoms Neck: reports: No Symptoms Respiratory: reports: SOB, SOB on Exertion Gastrointestinal: reports: No Symptoms Genitourinary: reports: No Symptoms Breasts: reports: No Symptoms Reported Musculoskeletal: reports: Extremity Pain (Left arm) Integumentary: reports: No Symptoms Neurological: reports: Weakness (Left arm) Physical Examination Vital Signs: Vital Signs Temperature 98.1 F 06/14/17 16:44 Pulse Rate 103 H 06/14/17 17:38 Respiratory Rate 18 06/14/17 17:38 Blood Pressure 135/76 06/14/17 17:38 O2 Sat by Pulse Oximetry (%) 98 06/14/17 17:38 Constitutional: Yes: Well Nourished, No Distress, Calm Eyes: Yes: WNL, Conjunctiva Clear, EOM Intact, PERRL HENT: Yes: WNL, Atraumatic, Normocephalic Neck: Yes: WNL, Supple, Trachea Midline Cardiovascular: Yes: Pulse Irregular, Murmur, S1, S2 Respiratory: Yes: WNL, Regular, CTA Bilaterally Gastrointestinal: Yes: WNL, Normal Bowel Sounds, Soft ...Rectal Exam: Yes: Deferred Renal/: Yes: WNL Breast(s): Yes: WNL Musculoskeletal: Yes: WNL Extremities: Yes: WNL Edema: No Peripheral Pulses WNL: Yes Integumentary: Yes: WNL Neurological: Yes: WNL, Alert, Oriented, Cran Nerves II-XII Intact. No: Dysarthria, Facial Droop, Loss of Sensation, Numbness, Paresthesia, Tremors, Weakness ...Motor Strength: WNL, LUE (5/5), LLE (5/5), RUE (5/5), RLE (5/5) Psychiatric: Yes: WNL, Alert, Oriented Labs: CBC, BMP 06/14/17 17:03 06/14/17 17:03 Laboratory Results - last 24 hr 06/14/17 06/14/17 06/14/17 00:00 17:03 17:03 WBC 7.5 RBC 5.13 Hgb 13.7 D Hct 40.9 D MCV 79.7 L MCH 26.6 MCHC 33.4 RDW 14.2 Plt Count 322 D MPV 8.3 Neutrophils % 58.4 Lymphocytes % 34.2 Monocytes % 6.1 Eosinophils % 0.9 Basophils % 0.4 PT with INR 11.70 INR 1.04 Sodium Potassium Chloride Carbon Dioxide Anion Gap BUN Creatinine Creat Clearance w eGFR Random Glucose Hemoglobin A1c % Calcium Phosphorus Magnesium Total Bilirubin AST ALT Alkaline Phosphatase Creatine Kinase Troponin I Total Protein Albumin Triglycerides Cholesterol Total LDL Cholesterol HDL Cholesterol TSH Urine Color Colorless Urine Appearance Clear Urine pH 7.0 D Ur Specific [place] 1.028 Urine Protein Negative Urine Glucose (UA) Negative Urine Ketones Negative Urine Blood 2+ H Urine Nitrite Negative Urine Bilirubin Negative Urine Urobilinogen Negative Ur Leukocyte Esterase Negative Urine WBC (Auto) 2 Urine RBC (Auto) 10 Ur Epithelial Cells Rare Hyaline Casts 1 Blood Type Antibody Screen 06/14/17 06/14/17 06/15/17 17:03 17:03 01:00 WBC RBC Hgb Hct MCV MCH MCHC RDW Plt Count MPV Neutrophils % Lymphocytes % Monocytes % Eosinophils % Basophils % PT with INR INR Sodium 141 Potassium 3.8 Chloride 106 Carbon Dioxide 26 Anion Gap 9 BUN 25 H Creatinine 1.2 H Creat Clearance w eGFR 44.95 Random Glucose 83 Hemoglobin A1c % Calcium 8.6 Phosphorus Magnesium Total Bilirubin 0.5 D AST 16 ALT 22 Alkaline Phosphatase 94 Creatine Kinase 72 Troponin I < 0.02 < 0.02 Total Protein 7.3 Albumin 3.8 Triglycerides 293 H Cholesterol 180 Total LDL Cholesterol 105 H HDL Cholesterol 45 TSH Urine Color Urine Appearance Urine pH Ur Specific [place] Urine Protein Urine Glucose (UA) Urine Ketones Urine Blood Urine Nitrite Urine Bilirubin Urine Urobilinogen Ur Leukocyte Esterase Urine WBC (Auto) Urine RBC (Auto) Ur Epithelial Cells Hyaline Casts Blood Type O NEGATIVE Antibody Screen Negative Intake & Output 06/12/17 06/13/17 06/14/17 06/15/17 23:59 23:59 23:59 23:59 Intake Total 252 Balance 252 Weight 83.915 kg 84.368 kg Imaging - Results Cat Scan: Pending (Head/Neck), Report Reviewed, Image Reviewed EKG: Image Reviewed (Afib with RVR Inferior infarct, age undetrmined QT/QTc 326/ 470) Problem List - Problems (1) Atrial fibrillation with RVR Code(s): I48.91 - UNSPECIFIED ATRIAL FIBRILLATION (2) Chest pain Code(s): R07.9 - CHEST PAIN, UNSPECIFIED Qualifiers: Chest pain type: precordial pain Qualified Code(s): R07.2 - Precordial pain (3) Cerebrovascular accident (CVA) Code(s): I63.9 - CEREBRAL INFARCTION, UNSPECIFIED Qualifiers: CVA mechanism: unspecified Qualified Code(s): I63.9 - Cerebral infarction, unspecified (4) HLD (hyperlipidemia) Code(s): E78.5 - HYPERLIPIDEMIA, UNSPECIFIED (5) HTN (hypertension) Code(s): I10 - ESSENTIAL (PRIMARY) HYPERTENSION Qualifiers: Hypertension type: essential hypertension Qualified Code(s): I10 - Essential (primary) hypertension (6) DVT prophylaxis Code(s): [id number] - Assessment/Plan This is a 66 y/o woman PMHx of: HTN, HLD, Afib (Xarelto), Hypothyroid. Admitted to Telemetry Chest Pain, CVA/TIA, HTN. Plan: 1.Card: Afib with RVR- EKG reviewed, Lopressor IV prn for rate control, [id number], Continue Xarelto, Continue tele monitoring, Appreciate Cardiology consult, Echo , Serial Enzymes HTN- Monitor BP, Continue home meds, Monitor renal function HLD- Continue Statin, Monitor LFTs 2. Neuro: CVA vs TIA- Neuro following, NIHSS 0, CT Head- neg, Neuro checks Continue Asa, Swallow eval, Fall Precautions 3. Endocrine: Hypothyroid- TSH in am, Continue Levothyroxine 4. FEN- Po Fluids as tolerated, Replete lytes, Low Na, Diabetic Diet 5. DVT prophylaxis- OOB, SCDs, Heparin SQ Code Status: Full Code Dispo: Requires Inpatient Care Visit type - Emergency Visit Emergency Visit: Yes ED Registration Date: 06/14/17 Care time: The patient presented to the Emergency Department on the above date and was hospitalized for further evaluation of their emergent condition. - New Patient This patient is new to me today: Yes Date on this admission: 06/14/17 - Critical Care Critical Care patient: No
[2017-06-15 00:07] LABS: URINE APPEARANCE CLEAR; URINE BILIRUBIN NEGATIVE (NEGATIVE); URINE BLOOD 2+ (NEGATIVE); URINE COLOR COLORLESS; URINE GLUCOSE (UA) NEGATIVE (NEGATIVE); URINE KETONE NEGATIVE (NEGATIVE); URINE LEUK ESTERASE NEGATIVE (NEGATIVE); URINE NITRITE NEGATIVE (NEGATIVE); URINE PROTEIN NEGATIVE (NEGATIVE); URINE UROBILINOGEN NEGATIVE mg/dL (0.2-1.0)
[2017-06-15 00:23] LABS: EPI CELLS RARE /HPF (FEW); URINE HYALINE CAST 1 /lpf
[2017-06-15 07:23] LABS: BASO % 0.6 % (0-2.0); EOS % 1.6 % (0-4.5); HEMATOCRIT 35.8 % (32.4-45.2); LYMPH % 43.6 % (8-40); MCH 26.6 pg (25.7-33.7); MCHC 33.5 g/dl (32.0-36.0); MEAN CELL VOLUME 79.3 fl (80-96); MEAN PLT VOLUME 8.3 fl (7.5-11.1); MONO % 5.7 % (3.8-10.2); NEUT % 48.5 % (42.8-82.8); PLATELET COUNT 281 K/MM3 (134-434); RBC 4.52 M/mm3 (3.60-5.2); RDW 14.2 % (11.6-15.6); WHITE BLOOD COUNT 7.6 K/mm3 (4.0-10.0)
[2017-06-15 07:53] LABS: CHLORIDE 109 mmol/L (98-107); POTASSIUM 3.6 mmol/L (3.5-5.1); SODIUM 144 mmol/L (136-145)
[2017-06-15 08:03] LABS: ANION GAP 10 (8-16); BLOOD UREA NITROGEN 23 mg/dL (7-18); CALCIUM 8.3 mg/dL (8.5-10.1); CO2 25 mmol/L (21-32); GLUCOSE,RANDOM 82 mg/dL (74-106); PHOSPHOROUS 3.9 mg/dL (2.5-4.9)
--- NOTE | 2017-06-15 08:41 | PN ---
Progress Note, Physician History of Present Illness: 66 y/o woman with a past medical history of HTN, HLD, Hypothyroid, Afib (on Xarelto). Who presents to the ED from the time motion analyst's office for L- arm pain and weakness. The pain has resolved In bed comfortable - Current Medication List Current Medications: Active Medications Aspirin (Asa -) 81 mg PO DAILY [facility] Sodium Chloride (Normal Saline -) 1,000 mls @ 42 mls/hr IV ASDIR [facility] Last Admin: 06/14/17 17:05 Dose: 42 mls/hr Levothyroxine Sodium (Synthroid -) 25 mcg PO DAILY [facility] Metoprolol Succinate (Toprol Xl -) 100 mg PO DAILY [facility] Non-Formulary Medication (Omeprazole) 40 mg PO DAILY [facility] Non-Formulary Medication (Pravastatin Sodium) 40 mg PO HS [facility] Rivaroxaban (Xarelto -) 20 mg PO DAILY@1800 [facility] Last Admin: 06/14/17 18:44 Dose: 20 mg - Objective Vital Signs: Vital Signs Temperature 97.7 F 06/15/17 06:45 Pulse Rate 99 H 06/15/17 06:45 Respiratory Rate 19 06/15/17 06:45 Blood Pressure 101/52 06/15/17 06:45 O2 Sat by Pulse Oximetry (%) 98 06/15/17 05:47 Cardiovascular: Yes: Tachycardia, Pulse Irregular, S1, S2 Respiratory: Yes: Regular, CTA Bilaterally Gastrointestinal: Yes: Normal Bowel Sounds, Soft Labs: CBC, BMP 06/15/17 06:11 06/15/17 06:11 INR, PTT INR 1.04 (0.82-1.09) 06/14/17 17:03 Problem List - Problems (1) A-fib Assessment/Plan: resume meds monitor rate on xarelto Code(s): I48.91 - UNSPECIFIED ATRIAL FIBRILLATION (2) Chest pain Assessment/Plan: ce negative echo stress test Code(s): R07.9 - CHEST PAIN, UNSPECIFIED Qualifiers: Chest pain type: precordial pain Qualified Code(s): R07.2 - Precordial pain (3) HTN (hypertension) Assessment/Plan: monitor on current Vital Signs Period Temp Pulse Resp BP Sys/Leon Pulse Ox Last 24 Hr 97.5 F-98.1 F 82-112 16-20 101-140/52-85 97-99 meds Code(s): I10 - ESSENTIAL (PRIMARY) HYPERTENSION Qualifiers: Hypertension type: essential hypertension Qualified Code(s): I10 - Essential (primary) hypertension
[2017-06-15] MEDS ORDERED: REGADENOSON 0.4 MG/5 ML PRE-FILLED SYRINGE IVPUSH ONE (10:00)
[2017-06-15] MEDS: PANTOPRAZOLE 40 MG TABLET (FP) PO SCH (10:27)
[2017-06-15] MEDS: LEVOTHYROXINE NA 25 MCG TABLET (FP) PO SCH (10:27)
[2017-06-15] MEDS: ASPIRIN 81 MG CHEWABLE TABLETS PO SCH (10:27)
--- NOTE | 2017-06-15 10:58 | EKG ---
Test Reason : Blood Pressure : / mmHG Vent. Rate : 125 BPM Atrial Rate : 111 BPM P-R Int : 000 ms QRS Dur : 080 ms QT Int : 326 ms P-R-T Axes : 000 024 -06 degrees QTc Int : 470 ms ATRIAL FIBRILLATION WITH RAPID VENTRICULAR RESPONSE INFERIOR INFARCT (CITED ON OR BEFORE 25-JUL-2008) ABNORMAL ECG WHEN COMPARED WITH ECG OF 25-JUL-2016 18:45, T WAVE INVERSION NOW EVIDENT IN INFERIOR LEADS NONSPECIFIC T WAVE ABNORMALITY NO LONGER EVIDENT IN LATERAL LEADS Confirmed by KOKO VAZQUEZ, RICK ([id number]) on 06/15/2017 10:57:30 AM Referred By: Confirmed By:RICK SUTHERLAND MD
--- NOTE | 2017-06-15 12:03 | PN ---
Progress Note, Physician History of Present Illness: 66-year-old female sent from Dr. De La Vega's office for left arm weakness this started at 2 PM -Family stated that last evening a.m. she felt dizzy, lightheaded, but did not have any weakness in her arm and made the appt w the dialer because of the dizziness -See a dialer because she felt dizzy. Past medical history of atrial fibrillation. He stopped taking his her elbow in February . CAT scan did not show any acute intracranial pathology, no midline shift, no edema, no infarct or acute bleed. NIH stroke scale was 2. It's not clear if the left arm drift is due to pain that she has in that left shoulder arm and not real weakness C. Cath mild non-obstructive disease 2011 HHD HTN paroxysmal Atrial Fibrilation 2010 - Current Medication List Current Medications: Active Medications Aspirin (Asa -) 81 mg PO DAILY [facility] Last Admin: 06/15/17 10:27 Dose: 81 mg Atorvastatin Calcium (Lipitor -) 10 mg PO [facility] Levothyroxine Sodium (Synthroid -) 25 mcg PO DAILY@0700 [facility] Last Admin: 06/15/17 10:27 Dose: 25 mcg Metoprolol Succinate (Toprol Xl -) 100 mg PO DAILY [facility] Last Admin: 06/15/17 09:41 Dose: 100 mg Pantoprazole Sodium (Protonix -) 40 mg PO DAILY [facility] Last Admin: 06/15/17 10:27 Dose: 40 mg Rivaroxaban (Xarelto -) 20 mg PO DAILY@1800 [facility] Last Admin: 06/14/17 18:44 Dose: 20 mg - Objective Vital Signs: Vital Signs Temperature 97.7 F 06/15/17 06:45 Pulse Rate 99 H 06/15/17 06:45 Respiratory Rate 19 06/15/17 06:45 Blood Pressure 101/52 06/15/17 06:45 O2 Sat by Pulse Oximetry (%) 98 06/15/17 05:47 Eyes: Yes: WNL, Conjunctiva Clear, EOM Intact HENT: Yes: WNL, Atraumatic, Normocephalic Neck: Yes: WNL, Supple, Trachea Midline Cardiovascular: Yes: Pulse Irregular, S1, S2 Respiratory: Yes: WNL, Regular, CTA Bilaterally Gastrointestinal: Yes: WNL, Normal Bowel Sounds Genitourinary: Yes: WNL Musculoskeletal: Yes: WNL Extremities: Yes: WNL Edema: No Integumentary: Yes: WNL Neurological: Yes: WNL, Alert, Oriented ...Motor Strength: WNL Psychiatric: Yes: WNL Labs: CBC, BMP 06/15/17 06:11 06/15/17 06:11 INR, PTT INR 1.04 (0.82-1.09) 06/14/17 17:03 Laboratory Tests 06/14/17 06/14/17 06/14/17 00:00 17:03 17:03 WBC 7.5 RBC 5.13 Hgb 13.7 D Hct 40.9 D MCV 79.7 L MCH 26.6 MCHC 33.4 RDW 14.2 Plt Count 322 D MPV 8.3 Neutrophils % 58.4 Lymphocytes % 34.2 Monocytes % 6.1 Eosinophils % 0.9 Basophils % 0.4 PT with INR 11.70 INR 1.04 Sodium Potassium Chloride Carbon Dioxide Anion Gap BUN Creatinine Creat Clearance w eGFR Random Glucose Hemoglobin A1c % Calcium Phosphorus Magnesium Total Bilirubin AST ALT Alkaline Phosphatase Creatine Kinase Troponin I Total Protein Albumin Triglycerides Cholesterol Total LDL Cholesterol HDL Cholesterol Urine Color Colorless Urine Appearance Clear Urine pH 7.0 D Ur Specific [place] 1.028 Urine Protein Negative Urine Glucose (UA) Negative Urine Ketones Negative Urine Blood 2+ H Urine Nitrite Negative Urine Bilirubin Negative Urine Urobilinogen Negative Ur Leukocyte Esterase Negative Urine WBC (Auto) 2 Urine RBC (Auto) 10 Ur Epithelial Cells Rare Hyaline Casts 1 Blood Type Antibody Screen 06/14/17 06/14/17 06/15/17 17:03 17:03 01:00 WBC RBC Hgb Hct MCV MCH MCHC RDW Plt Count MPV Neutrophils % Lymphocytes % Monocytes % Eosinophils % Basophils % PT with INR INR Sodium 141 Potassium 3.8 Chloride 106 Carbon Dioxide 26 Anion Gap 9 BUN 25 H Creatinine 1.2 H Creat Clearance w eGFR 44.95 Random Glucose 83 Hemoglobin A1c % Calcium 8.6 Phosphorus Magnesium Total Bilirubin 0.5 D AST 16 ALT 22 Alkaline Phosphatase 94 Creatine Kinase 72 Troponin I < 0.02 < 0.02 Total Protein 7.3 Albumin 3.8 Triglycerides 293 H Cholesterol 180 Total LDL Cholesterol 105 H HDL Cholesterol 45 Urine Color Urine Appearance Urine pH Ur Specific [place] Urine Protein Urine Glucose (UA) Urine Ketones Urine Blood Urine Nitrite Urine Bilirubin Urine Urobilinogen Ur Leukocyte Esterase Urine WBC (Auto) Urine RBC (Auto) Ur Epithelial Cells Hyaline Casts Blood Type O NEGATIVE Antibody Screen Negative 06/15/17 06/15/17 06/15/17 06:11 06:11 06:11 WBC 7.6 RBC 4.52 Hgb 12.0 D Hct 35.8 MCV 79.3 L MCH 26.6 MCHC 33.5 RDW 14.2 Plt Count 281 MPV 8.3 Neutrophils % 48.5 Lymphocytes % 43.6 H D Monocytes % 5.7 Eosinophils % 1.6 Basophils % 0.6 PT with INR INR Sodium 144 Potassium 3.6 Chloride 109 H Carbon Dioxide 25 Anion Gap 10 BUN 23 H Creatinine 1.0 Creat Clearance w eGFR Random Glucose 82 Hemoglobin A1c % 5.7 Calcium 8.3 L Phosphorus 3.9 Magnesium 2.0 Total Bilirubin AST ALT Alkaline Phosphatase Creatine Kinase Troponin I < 0.02 Total Protein Albumin Triglycerides Cholesterol Total LDL Cholesterol HDL Cholesterol Urine Color Urine Appearance Urine pH Ur Specific [place] Urine Protein Urine Glucose (UA) Urine Ketones Urine Blood Urine Nitrite Urine Bilirubin Urine Urobilinogen Ur Leukocyte Esterase Urine WBC (Auto) Urine RBC (Auto) Ur Epithelial Cells Hyaline Casts Blood Type Antibody Screen Problem List - Problems (1) A-fib Code(s): I48.91 - UNSPECIFIED ATRIAL FIBRILLATION (2) Cerebrovascular accident (CVA) Code(s): I63.9 - CEREBRAL INFARCTION, UNSPECIFIED Qualifiers: CVA mechanism: unspecified Qualified Code(s): I63.9 - Cerebral infarction, unspecified (3) Chest pain Code(s): R07.9 - CHEST PAIN, UNSPECIFIED Qualifiers: Chest pain type: precordial pain Qualified Code(s): R07.2 - Precordial pain (4) DVT prophylaxis Code(s): [id number] - (5) HLD (hyperlipidemia) Code(s): E78.5 - HYPERLIPIDEMIA, UNSPECIFIED (6) HTN (hypertension) Code(s): I10 - ESSENTIAL (PRIMARY) HYPERTENSION Qualifiers: Hypertension type: essential hypertension Qualified Code(s): I10 - Essential (primary) hypertension (7) Shoulder pain Code(s): M25.519 - PAIN IN UNSPECIFIED SHOULDER Qualifiers: Chronicity: unspecified Laterality: left Qualified Code(s): M25.512 - Pain in left shoulder (8) Arm paresthesia, left Code(s): R20.2 - PARESTHESIA OF SKIN (9) Back pain Code(s): M54.9 - DORSALGIA, UNSPECIFIED (10) Cervical radicular pain Code(s): M54.12 - RADICULOPATHY, CERVICAL REGION (11) H/O acute myocardial infarction Code(s): I25.2 - OLD MYOCARDIAL INFARCTION (12) Left knee sprain Code(s): S83.92XA - SPRAIN OF UNSPECIFIED SITE OF LEFT KNEE, INITIAL ENCOUNTER Qualifiers: Encounter type: initial encounter Involved ligament of knee: medial collateral ligament Qualified Code(s): S83.412A - Sprain of medial collateral ligament of left knee, initial encounter (13) Rapid atrial fibrillation Code(s): I48.91 - UNSPECIFIED ATRIAL FIBRILLATION (14) UTI (lower urinary tract infection) Code(s): N39.0 - URINARY TRACT INFECTION, SITE NOT SPECIFIED Assessment/Plan AF with RVR - noncomplience with AC - stopped Xarelto r/o CVA htn hld nonobstructive cors 2012 atypical cp Plan ac rate controll no need for mibi st now since patient c/o mostli of palpitations and numbness echo increase metoprolol
--- NOTE | 2017-06-15 17:28 | PN ---
Progress Note (short form) - Note Progress Note: ]66 year old female history of HTN, Atrial fibrillation. She presented with feeling of dizzy and lightheadedness , came to see her telecasting technician and felt her arm is weak. She also complain of neck pain and chest pain. her brain and neck cta was unremarkable and ct head is normal. Her symptoms were resolved, and yesterday she was able to put up good effort . Neurological Examination VSS Pulse irregular Alert oriented x 3, speech is normal and no dysarthria and able to follow command EOMI, pupils is reactive and no face asymmetry no pronator drift, no motor weakness identified Nih score is 0 adn swallowing is normal ct head unremarkable, cta of neck and brain was normal Assessment-- 66 year old female history of atrial fibrillation came with subjective neck pain and weakness, no objective findings identified she is already on aspirin and anticoagulation continue statin , no further testing or treatment from neurological point of view no need for mri at this time, would follow as outpatient. Thanking you so much Stefan Quigley MD
[2017-06-15] MEDS: RIVAROXABAN 20 MG TABLET PO SCH (17:30)
[2017-06-15] MEDS: ATORVASTATIN CA 10 MG TABLET (FP) PO SCH (22:10)
[2017-06-16] MEDS: LEVOTHYROXINE NA 25 MCG TABLET (FP) PO SCH (06:16)
--- NOTE | 2017-06-16 08:46 | PN ---
Progress Note, Physician - Current Medication List Current Medications: Active Medications Aspirin (Asa -) 81 mg PO DAILY [facility] Last Admin: 06/15/17 10:27 Dose: 81 mg Atorvastatin Calcium (Lipitor -) 10 mg PO HS [facility] Last Admin: 06/15/17 22:10 Dose: 10 mg Digoxin (Lanoxin -) 0.125 mg PO DAILY [facility] Levothyroxine Sodium (Synthroid -) 25 mcg PO DAILY@0700 [facility] Last Admin: 06/16/17 06:16 Dose: 25 mcg Metoprolol Succinate (Toprol Xl -) 200 mg PO DAILY [facility] Pantoprazole Sodium (Protonix -) 40 mg PO DAILY [facility] Last Admin: 06/15/17 10:27 Dose: 40 mg Rivaroxaban (Xarelto -) 20 mg PO DAILY@1800 [facility] Last Admin: 06/15/17 17:30 Dose: 20 mg - Objective Vital Signs: Vital Signs Temperature 98.2 F 06/16/17 05:28 Pulse Rate 98 H 06/16/17 05:28 Respiratory Rate 20 06/16/17 05:28 Blood Pressure 100/60 06/16/17 05:28 O2 Sat by Pulse Oximetry (%) 96 06/15/17 21:00 Cardiovascular: Yes: Tachycardia, Pulse Irregular, S1, S2 Respiratory: Yes: Regular, CTA Bilaterally Gastrointestinal: Yes: Normal Bowel Sounds, Soft Labs: CBC, BMP 06/15/17 06:11 06/15/17 06:11 INR, PTT INR 1.04 (0.82-1.09) 06/14/17 17:03 Problem List - Problems (1) A-fib Assessment/Plan: same meds--add dig monitor rate on xarelto Code(s): I48.91 - UNSPECIFIED ATRIAL FIBRILLATION (2) Chest pain Assessment/Plan: ce negative echo stress test cancelled by cardio Code(s): R07.9 - CHEST PAIN, UNSPECIFIED Qualifiers: Chest pain type: precordial pain Qualified Code(s): R07.2 - Precordial pain (3) HTN (hypertension) Assessment/Plan: monitor on current Vital Signs Period Temp Pulse Resp BP Sys/Leon Pulse Ox Last 24 Hr 97.5 F-98.1 F 82-112 16-20 101-140/52-85 97-99 meds Code(s): I10 - ESSENTIAL (PRIMARY) HYPERTENSION Qualifiers: Hypertension type: essential hypertension Qualified Code(s): I10 - Essential (primary) hypertension
[2017-06-16] MEDS: ASPIRIN 81 MG CHEWABLE TABLETS PO SCH (09:12)
[2017-06-16] MEDS: PANTOPRAZOLE 40 MG TABLET (FP) PO SCH (09:12)
[2017-06-16] MEDS ORDERED: DIGOXIN 0.125 MG TABLET (FP) PO SCH (10:00)
--- NOTE | 2017-06-16 11:09 | PN ---
Progress Note, Physician - Current Medication List Current Medications: Active Medications Aspirin (Asa -) 81 mg PO DAILY [facility] Last Admin: 06/16/17 09:12 Dose: 81 mg Atorvastatin Calcium (Lipitor -) 10 mg PO HS [facility] Last Admin: 06/15/17 22:10 Dose: 10 mg Levothyroxine Sodium (Synthroid -) 25 mcg PO DAILY@0700 [facility] Last Admin: 06/16/17 06:16 Dose: 25 mcg Metoprolol Succinate (Toprol Xl -) 200 mg PO DAILY [facility] Last Admin: 06/16/17 09:11 Dose: 200 mg Pantoprazole Sodium (Protonix -) 40 mg PO DAILY [facility] Last Admin: 06/16/17 09:12 Dose: 40 mg Rivaroxaban (Xarelto -) 20 mg PO DAILY@1800 [facility] Last Admin: 06/15/17 17:30 Dose: 20 mg - Objective Vital Signs: Vital Signs Temperature 98 F 06/16/17 10:00 Pulse Rate 110 H 06/16/17 10:00 Respiratory Rate 18 06/16/17 10:00 Blood Pressure 120/65 06/16/17 10:00 O2 Sat by Pulse Oximetry (%) 97 06/16/17 09:00 Cardiovascular: Yes: Tachycardia, Pulse Irregular, S1, S2 Respiratory: Yes: Regular, CTA Bilaterally Gastrointestinal: Yes: Normal Bowel Sounds, Soft Labs: CBC, BMP 06/15/17 06:11 06/15/17 06:11 INR, PTT INR 1.04 (0.82-1.09) 06/14/17 17:03 <Selene Chester - Last Filed: 06/16/17 12:02> Chief Complaint: Pt A&Ox3; OOB in chair, and abulates in hallway. She worries about why her heart so often starts beating rapid (over the past several years; increasing in frequency in the past few months). History of Present Illness: 66-year-old female sent from Dr. De La Vega's office for left arm weakness this started at 2 PM -Family stated that last evening a.m. she felt dizzy, lightheaded, but did not have any weakness in her arm and made the appt w the signal maintenance technician because of the dizziness -See a signal maintenance technician because she felt dizzy. Past medical history of atrial fibrillation. He stopped taking his her elbow in February . CAT scan did not show any acute intracranial pathology, no midline shift, no edema, no infarct or acute bleed. NIH stroke scale was 2. It's not clear if the left arm drift is due to pain that she has in that left shoulder arm and not real weakness C. Cath mild non-obstructive disease 2011 HHD HTN paroxysmal Atrial Fibrilation 2010 - Current Medication List Current Medications: Active Medications Aspirin (Asa -) 81 mg PO DAILY [facility] Last Admin: 06/16/17 09:12 Dose: 81 mg Atorvastatin Calcium (Lipitor -) 10 mg PO HS [facility] Last Admin: 06/15/17 22:10 Dose: 10 mg Levothyroxine Sodium (Synthroid -) 25 mcg PO DAILY@0700 [facility] Last Admin: 06/16/17 06:16 Dose: 25 mcg Metoprolol Succinate (Toprol Xl -) 200 mg PO DAILY [facility] Last Admin: 06/16/17 09:11 Dose: 200 mg Pantoprazole Sodium (Protonix -) 40 mg PO DAILY [facility] Last Admin: 06/16/17 09:12 Dose: 40 mg Rivaroxaban (Xarelto -) 20 mg PO DAILY@1800 [facility] Last Admin: 06/15/17 17:30 Dose: 20 mg - Objective Vital Signs: Vital Signs Temperature 98 F 06/16/17 10:00 Pulse Rate 110 H 06/16/17 10:00 Respiratory Rate 18 06/16/17 10:00 Blood Pressure 120/65 06/16/17 10:00 O2 Sat by Pulse Oximetry (%) 97 06/16/17 09:00 Constitutional: Yes: Anxious, Obese Eyes: Yes: WNL HENT: Yes: WNL Neck: Yes: WNL Cardiovascular: Yes: Tachycardia, Pulse Irregular, S1 (varies in intensity) Respiratory: Yes: WNL Gastrointestinal: Yes: Soft, Abdomen, Obese ...Rectal Exam: Yes: Deferred Genitourinary: No: Anuria Breast(s): Yes: WNL Musculoskeletal: Yes: WNL Extremities: Yes: WNL Edema: No Peripheral Pulses WNL: Yes Integumentary: Yes: WNL Neurological: Yes: WNL Psychiatric: Yes: WNL Labs: CBC, BMP 06/15/17 06:11 06/15/17 06:11 INR, PTT INR 1.04 (0.82-1.09) 06/14/17 17:03 Abnormal Lab Results 06/15/17 06:11 Chloride 109 H BUN 23 H Calcium 8.3 L TSH 5.16 H - ....Imaging Other: Image Reviewed (telemetry: AF; periods of RVR; now generally 110-130 bpm) <JarettRodrigo patten - Last Filed: 06/16/17 12:55> Problem List - Problems (1) A-fib Assessment/Plan: CONTINUE WITH AC RESUME MEDS Code(s): I48.91 - UNSPECIFIED ATRIAL FIBRILLATION (2) Chest pain Code(s): R07.9 - CHEST PAIN, UNSPECIFIED QualifierTitle: Chest pain type: precordial pain Qualified Code(s): R07.2 - Precordial pain (3) HTN (hypertension) Code(s): I10 - ESSENTIAL (PRIMARY) HYPERTENSION QualifierTitle: Hypertension type: essential hypertension Qualified Code( s): I10 - Essential (primary) hypertension <Selene Chester - Last Filed: 06/16/17 12:02> - Problems (1) Atrial fibrillation with RVR Assessment/Plan: Metoprolol ER increased from 150 to 200 mg daily; f/u HR and BP. ECHO: normal LVEF. HR is better-controlled today. Will discontinue digoxin for the present time and try to maintain control of HR with increased dosing of metoprolol. On rivaroxaban for anticoagulation. Mildly elevated TSH; f/u TFTs. Code(s): I48.91 - UNSPECIFIED ATRIAL FIBRILLATION (2) HLD (hyperlipidemia) Code(s): E78.5 - HYPERLIPIDEMIA, UNSPECIFIED (3) HTN (hypertension) Code(s): I10 - ESSENTIAL (PRIMARY) HYPERTENSION Qualifiers: Hypertension type: essential hypertension Qualified Code(s): I10 - Essential (primary) hypertension (4) Shoulder pain Assessment/Plan: F/u with neurology, physical therapist. 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 Code(s): M25.519 - PAIN IN UNSPECIFIED SHOULDER Qualifiers: Chronicity: unspecified Laterality: left Qualified Code(s): M25.512 - Pain in left shoulder (5) Arm paresthesia, left Code(s): R20.2 - PARESTHESIA OF SKIN (6) Anxiety about health Assessment/Plan: Pt worries about HR frequently being rapid. Will f/u HR and arrhythmia closelm on medication therapy presently, with increased metorrolol dose today. Code(s): F41.8 - OTHER SPECIFIED ANXIETY DISORDERS (7) Atypical chest pain Assessment/Plan: TNI<0.02 x 3. EKG: AF. Coronary angiogram 2012: patene coronary arteries. Pt walks 2-3 hours most days of the week (as a [employer] member, she often delivers food to the poor; she frequently lifts bulky and heavy cans and boxes). Code(s): R07.89 - OTHER CHEST PAIN (8) Obesity Assessment/Plan: Pt is 5'3" tall. At 20 yrs old, she weighed 90 lbs. She is now 184 lbs. She has recently changed to a healthy diet, and says she has already lost 10 lbs; she plans to lose 10=20 lbs more. Code(s): E66.9 - OBESITY, UNSPECIFIED <Rodrigo Martinez - Last Filed: 06/16/17 12:55>
[2017-06-16] MEDS: RIVAROXABAN 20 MG TABLET PO SCH (17:58)
[2017-06-16] MEDS: ATORVASTATIN CA 10 MG TABLET (FP) PO SCH (22:06)
[2017-06-17] MEDS: LEVOTHYROXINE NA 25 MCG TABLET (FP) PO SCH (06:52)
[2017-06-17] MEDS: PANTOPRAZOLE 40 MG TABLET (FP) PO SCH (09:01)
[2017-06-17] MEDS: ASPIRIN 81 MG CHEWABLE TABLETS PO SCH (09:01)
--- NOTE | 2017-06-17 09:25 | PN ---
Progress Note, Physician History of Present Illness: 66 y/o woman with a past medical history of HTN, HLD, Hypothyroid, Afib (on Xarelto). Who presents to the ED from the clamp forklift operator's office for L- arm pain and weakness. The pain has resolved 06/17--PT COMPLAINING OF CHEST HEAVINESS AND HUTCHISON - Current Medication List Current Medications: Active Medications Aspirin (Asa -) 81 mg PO DAILY [facility] Last Admin: 06/17/17 09:01 Dose: 81 mg Atorvastatin Calcium (Lipitor -) 10 mg PO HS [facility] Last Admin: 06/16/17 22:06 Dose: 10 mg Levothyroxine Sodium (Synthroid -) 25 mcg PO DAILY@0700 [facility] Last Admin: 06/17/17 06:52 Dose: 25 mcg Metoprolol Succinate (Toprol Xl -) 200 mg PO DAILY [facility] Last Admin: 06/17/17 09:00 Dose: 200 mg Pantoprazole Sodium (Protonix -) 40 mg PO DAILY [facility] Last Admin: 06/17/17 09:01 Dose: 40 mg Rivaroxaban (Xarelto -) 20 mg PO DAILY@1800 [facility] Last Admin: 06/16/17 17:58 Dose: 20 mg - Objective Vital Signs: Vital Signs Temperature 97.4 F L 06/17/17 05:50 Pulse Rate 64 06/17/17 05:50 Respiratory Rate 20 06/17/17 05:50 Blood Pressure 155/76 06/17/17 05:50 O2 Sat by Pulse Oximetry (%) 98 06/16/17 21:00 Cardiovascular: Yes: Regular Rate and Rhythm Respiratory: Yes: Regular, CTA Bilaterally Gastrointestinal: Yes: Normal Bowel Sounds, Soft Labs: CBC, BMP 06/15/17 06:11 06/15/17 06:11 INR, PTT INR 1.04 (0.82-1.09) 06/14/17 17:03 Problem List - Problems (1) A-fib Assessment/Plan: same meds-- monitor rate--SINUS 60'S on xarelto Code(s): I48.91 - UNSPECIFIED ATRIAL FIBRILLATION (2) Chest pain Assessment/Plan: RECURRENT CE AND EKG echo noted stress test cancelled by cardio--may need to do Code(s): R07.9 - CHEST PAIN, UNSPECIFIED Qualifiers: Chest pain type: precordial pain Qualified Code(s): R07.2 - Precordial pain (3) HTN (hypertension) Assessment/Plan: monitor on current Vital Signs Period Temp Pulse Resp BP Sys/Leon Pulse Ox Last 24 Hr 97.5 F-98.1 F 82-112 16-20 101-140/52-85 97-99 meds Code(s): I10 - ESSENTIAL (PRIMARY) HYPERTENSION Qualifiers: Hypertension type: essential hypertension Qualified Code(s): I10 - Essential (primary) hypertension
[2017-06-17 10:17] LABS: BASO % 0.4 % (0-2.0); EOS % 2.2 % (0-4.5); HEMATOCRIT 33.4 % (32.4-45.2); LYMPH % 29.9 % (8-40); MCH 26.3 pg (25.7-33.7); MCHC 32.9 g/dl (32.0-36.0); MEAN CELL VOLUME 79.9 fl (80-96); MEAN PLT VOLUME 8.2 fl (7.5-11.1); MONO % 6.8 % (3.8-10.2); NEUT % 60.7 % (42.8-82.8); PLATELET COUNT 242 K/MM3 (134-434); RBC 4.17 M/mm3 (3.60-5.2); RDW 14.3 % (11.6-15.6); WHITE BLOOD COUNT 7.6 K/mm3 (4.0-10.0)
[2017-06-17 10:55] LABS: ALBUMIN 3.6 g/dl (3.4-5.0); ANION GAP 5 (8-16); BLOOD UREA NITROGEN 22 mg/dL (7-18); CALCIUM 8.1 mg/dL (8.5-10.1); CHLORIDE 107 mmol/L (98-107); CO2 29 mmol/L (21-32); GLUCOSE,RANDOM 67 mg/dL (74-106); POTASSIUM 4.1 mmol/L (3.5-5.1); SGOT/AST 13 U/L (15-37); SGPT/ALT 21 U/L (12-78); SODIUM 141 mmol/L (136-145)
[2017-06-17 11:00] LABS: ALK PHOS 83 U/L (45-117); BILIRUBIN,TOTAL 0.6 mg/dL (0.2-1.0); TOT PROT 6.7 g/dl (6.4-8.2)
--- NOTE | 2017-06-17 14:04 | EKG ---
Test Reason : Blood Pressure : / mmHG Vent. Rate : 055 BPM Atrial Rate : 055 BPM P-R Int : 176 ms QRS Dur : 082 ms QT Int : 416 ms P-R-T Axes : 032 019 041 degrees QTc Int : 397 ms SINUS BRADYCARDIA INFERIOR INFARCT (CITED ON OR BEFORE 25-JUL-2008) ABNORMAL ECG Confirmed by MAIRA WATSON MD ([id number]) on 06/17/2017 2:04:00 PM Referred By: JULIA DUKE DR Confirmed By:MAIRA WATSON MD
--- NOTE | 2017-06-17 14:17 | EKG ---
Test Reason : Blood Pressure : / mmHG Vent. Rate : 140 BPM Atrial Rate : 156 BPM P-R Int : 000 ms QRS Dur : 080 ms QT Int : 262 ms P-R-T Axes : 000 036 198 degrees QTc Int : 399 ms ATRIAL FIBRILLATION WITH RAPID VENTRICULAR RESPONSE INFERIOR INFARCT (CITED ON OR BEFORE 25-JUL-2008) ABNORMAL ECG WHEN COMPARED WITH ECG OF 14-JUN-2017 16:49, NONSPECIFIC T WAVE ABNORMALITY HAS REPLACED INVERTED T WAVES IN ANTERIOR LEADS NONSPECIFIC T WAVE ABNORMALITY NOW EVIDENT IN LATERAL LEADS Confirmed by MAIRA WATSON MD ([id number]) on 06/17/2017 2:17:40 PM Referred By: Confirmed By:MAIRA WATSON MD
[2017-06-17] MEDS: RIVAROXABAN 20 MG TABLET PO SCH (17:39)
--- NOTE | 2017-06-17 18:28 | PN ---
Progress Note, Physician Chief Complaint: Pt A&Ox3; OOB in chair. (Her son is at bedside). Pt had "mild central chest pressure that woke me up in the morning and hurt more when I pressed on the area ". (An EKG done this morning, while pt was having the pain, was unchanged ( sinus bradycardia; IWMI noted also in 2008). History of Present Illness: 66-year-old female sent from Dr. De La Vega's office for left arm weakness this started at 2 PM -Family stated that last evening a.m. she felt dizzy, lightheaded, but did not have any weakness in her arm and made the appt w the ceramist because of the dizziness -See a ceramist because she felt dizzy. Past medical history of atrial fibrillation. He stopped taking his her elbow in February . CAT scan did not show any acute intracranial pathology, no midline shift, no edema, no infarct or acute bleed. NIH stroke scale was 2. It's not clear if the left arm drift is due to pain that she has in that left shoulder arm and not real weakness C. Cath mild non-obstructive disease 2011 HHD HTN paroxysmal Atrial Fibrilation 2010 - Current Medication List Current Medications: Active Medications Aspirin (Asa -) 81 mg PO DAILY [facility] Last Admin: 06/17/17 09:01 Dose: 81 mg Atorvastatin Calcium (Lipitor -) 10 mg PO HS [facility] Last Admin: 06/16/17 22:06 Dose: 10 mg Levothyroxine Sodium (Synthroid -) 25 mcg PO DAILY@0700 [facility] Last Admin: 06/17/17 06:52 Dose: 25 mcg Metoprolol Succinate (Toprol Xl -) 200 mg PO DAILY [facility] Last Admin: 06/17/17 09:00 Dose: 200 mg Pantoprazole Sodium (Protonix -) 40 mg PO DAILY [facility] Last Admin: 06/17/17 09:01 Dose: 40 mg Ranolazine (Ranexa -) 500 mg PO BID [facility] Rivaroxaban (Xarelto -) 20 mg PO DAILY@1800 [facility] Last Admin: 06/17/17 17:39 Dose: 20 mg - Objective Vital Signs: Vital Signs Temperature 98.3 F 06/17/17 14:00 Pulse Rate 58 L 06/17/17 14:00 Respiratory Rate 18 06/17/17 09:00 Blood Pressure 137/74 06/17/17 14:00 O2 Sat by Pulse Oximetry (%) 98 06/16/17 21:00 Constitutional: Yes: Anxious Eyes: Yes: WNL HENT: Yes: WNL Neck: Yes: WNL Cardiovascular: Yes: S1, S2 Respiratory: Yes: WNL Gastrointestinal: Yes: Soft ...Rectal Exam: Yes: Deferred Genitourinary: No: Anuria Breast(s): Yes: WNL Musculoskeletal: Yes: WNL Extremities: Yes: WNL Edema: No Peripheral Pulses WNL: Yes Integumentary: Yes: WNL Neurological: Yes: WNL Psychiatric: Yes: WNL Labs: CBC, BMP 06/17/17 09:40 06/17/17 09:40 INR, PTT INR 1.04 (0.82-1.09) 06/14/17 17:03 Abnormal Lab Results 06/17/17 06/17/17 09:40 09:40 MCV 79.9 L Anion Gap 5 L BUN 22 H Random Glucose 67 L Calcium 8.1 L AST 13 L Problem List - Problems (1) Atrial fibrillation with RVR Assessment/Plan: Metoprolol ER increased from 150 to 200 mg daily; f/u HR and BP. ECHO: normal LVEF. Now in sinus rhythm. Will discontinue digoxin for the present time and try to maintain control of HR and rhythm with increased dosing of metoprolol. On rivaroxaban for anticoagulation. Mildly elevated TSH; free T4 WNL. Code(s): I48.91 - UNSPECIFIED ATRIAL FIBRILLATION (2) HLD (hyperlipidemia) Code(s): E78.5 - HYPERLIPIDEMIA, UNSPECIFIED (3) HTN (hypertension) Code(s): I10 - ESSENTIAL (PRIMARY) HYPERTENSION Qualifiers: Hypertension type: essential hypertension Qualified Code(s): I10 - Essential (primary) hypertension (4) Shoulder pain Assessment/Plan: F/u with neurology, physical therapist. 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 Code(s): M25.519 - PAIN IN UNSPECIFIED SHOULDER Qualifiers: Chronicity: unspecified Laterality: left Qualified Code(s): M25.512 - Pain in left shoulder (5) Arm paresthesia, left Code(s): R20.2 - PARESTHESIA OF SKIN (6) Anxiety about health Assessment/Plan: Pt worries about HR frequently being rapid. Will f/u HR and arrhythmia closely on medication therapy presently, with increased metoprolol dose now in effect. Code(s): F41.8 - OTHER SPECIFIED ANXIETY DISORDERS (7) Atypical chest pain Assessment/Plan: TNI<0.02 x 3. EKG: NSR; old IWMI; no acute changes (taken while pt had chest pressure today that was reproducible with palpation). Coronary angiogram 2012: patent coronary arteries. Pt walks 2-3 hours most days of the week (as a [employer] member, she often delivers food to the poor; she frequently lifts bulky and heavy cans and boxes). Code(s): R07.89 - OTHER CHEST PAIN (8) Obesity Assessment/Plan: Pt is 5'3" tall. At 20 yrs old, she weighed 90 lbs. She is now 184 lbs. She has recently changed to a healthy diet, and says she has already lost 10 lbs; she plans to lose 10-20 lbs more. Code(s): E66.9 - OBESITY, UNSPECIFIED
[2017-06-17] MEDS: ATORVASTATIN CA 10 MG TABLET (FP) PO SCH (22:03)
[2017-06-17] MEDS: RANOLAZINE E.R. 500 MG TABLET (FP) PO SCH (22:03)
[2017-06-18] MEDS: LEVOTHYROXINE NA 25 MCG TABLET (FP) PO SCH (06:40)
--- NOTE | 2017-06-18 09:27 | PN ---
Progress Note, Physician History of Present Illness: 66-year-old female sent from Dr. De La Vega's office for left arm weakness this started at 2 PM -Family stated that last evening a.m. she felt dizzy, lightheaded, but did not have any weakness in her arm and made the appt w the teller head because of the dizziness -See a teller head because she felt dizzy. Past medical history of atrial fibrillation. He stopped taking his her elbow in February . CAT scan did not show any acute intracranial pathology, no midline shift, no edema, no infarct or acute bleed. NIH stroke scale was 2. It's not clear if the left arm drift is due to pain that she has in that left shoulder arm and not real weakness C. Cath mild non-obstructive disease 2011 HHD HTN paroxysmal Atrial Fibrilation 2010 - Current Medication List Current Medications: Active Medications Aspirin (Asa -) 81 mg PO DAILY [facility] Last Admin: 06/17/17 09:01 Dose: 81 mg Atorvastatin Calcium (Lipitor -) 10 mg PO HS [facility] Last Admin: 06/17/17 22:03 Dose: 10 mg Levothyroxine Sodium (Synthroid -) 25 mcg PO DAILY@0700 [facility] Last Admin: 06/18/17 06:40 Dose: 25 mcg Metoprolol Succinate (Toprol Xl -) 200 mg PO DAILY [facility] Last Admin: 06/17/17 09:00 Dose: 200 mg Pantoprazole Sodium (Protonix -) 40 mg PO DAILY [facility] Last Admin: 06/17/17 09:01 Dose: 40 mg Ranolazine (Ranexa -) 500 mg PO BID [facility] Last Admin: 06/17/17 22:03 Dose: 500 mg Rivaroxaban (Xarelto -) 20 mg PO DAILY@1800 [facility] Last Admin: 06/17/17 17:39 Dose: 20 mg - Objective Vital Signs: Vital Signs Temperature 98 F 06/18/17 05:00 Pulse Rate 72 06/18/17 05:00 Respiratory Rate 18 06/18/17 05:00 Blood Pressure 131/65 06/18/17 05:00 O2 Sat by Pulse Oximetry (%) 99 06/17/17 21:00 Eyes: Yes: WNL, Conjunctiva Clear, EOM Intact HENT: Yes: WNL, Atraumatic, Normocephalic Neck: Yes: WNL, Supple, Trachea Midline Cardiovascular: Yes: WNL, Regular Rate and Rhythm Respiratory: Yes: WNL, Regular, CTA Bilaterally Gastrointestinal: Yes: WNL, Normal Bowel Sounds Genitourinary: Yes: WNL Musculoskeletal: Yes: WNL Extremities: Yes: WNL Edema: No Integumentary: Yes: WNL Neurological: Yes: WNL, Alert, Oriented ...Motor Strength: WNL Psychiatric: Yes: WNL Labs: CBC, BMP 06/17/17 09:40 06/17/17 09:40 INR, PTT INR 1.04 (0.82-1.09) 06/14/17 17:03 Problem List - Problems (1) A-fib Code(s): I48.91 - UNSPECIFIED ATRIAL FIBRILLATION (2) Cerebrovascular accident (CVA) Code(s): I63.9 - CEREBRAL INFARCTION, UNSPECIFIED Qualifiers: CVA mechanism: unspecified Qualified Code(s): I63.9 - Cerebral infarction, unspecified (3) Chest pain Code(s): R07.9 - CHEST PAIN, UNSPECIFIED Qualifiers: Chest pain type: precordial pain Qualified Code(s): R07.2 - Precordial pain (4) DVT prophylaxis Code(s): [id number] - (5) HLD (hyperlipidemia) Code(s): E78.5 - HYPERLIPIDEMIA, UNSPECIFIED (6) HTN (hypertension) Code(s): I10 - ESSENTIAL (PRIMARY) HYPERTENSION Qualifiers: Hypertension type: essential hypertension Qualified Code(s): I10 - Essential (primary) hypertension (7) Shoulder pain Code(s): M25.519 - PAIN IN UNSPECIFIED SHOULDER Qualifiers: Chronicity: unspecified Laterality: left Qualified Code(s): M25.512 - Pain in left shoulder (8) Arm paresthesia, left Code(s): R20.2 - PARESTHESIA OF SKIN (9) Back pain Code(s): M54.9 - DORSALGIA, UNSPECIFIED (10) Cervical radicular pain Code(s): M54.12 - RADICULOPATHY, CERVICAL REGION (11) H/O acute myocardial infarction Code(s): I25.2 - OLD MYOCARDIAL INFARCTION (12) Left knee sprain Code(s): S83.92XA - SPRAIN OF UNSPECIFIED SITE OF LEFT KNEE, INITIAL ENCOUNTER Qualifiers: Encounter type: initial encounter Involved ligament of knee: medial collateral ligament Qualified Code(s): S83.412A - Sprain of medial collateral ligament of left knee, initial encounter (13) Rapid atrial fibrillation Code(s): I48.91 - UNSPECIFIED ATRIAL FIBRILLATION (14) UTI (lower urinary tract infection) Code(s): N39.0 - URINARY TRACT INFECTION, SITE NOT SPECIFIED Assessment/Plan - Problems (1) Atrial fibrillation with RVR Assessment/Plan: Metoprolol ER increased from 150 to 200 mg daily; f/u HR and BP. ECHO: normal LVEF. Now in sinus rhythm. Will discontinue digoxin for the present time and try to maintain control of HR and rhythm with increased dosing of metoprolol. On rivaroxaban for anticoagulation. Mildly elevated TSH; free T4 WNL. Code(s): I48.91 - UNSPECIFIED ATRIAL FIBRILLATION (2) HLD (hyperlipidemia) Code(s): E78.5 - HYPERLIPIDEMIA, UNSPECIFIED (3) HTN (hypertension) Code(s): I10 - ESSENTIAL (PRIMARY) HYPERTENSION Qualifiers: Hypertension type: essential hypertension Qualified Code(s): I10 - Essential (primary) hypertension (4) Shoulder pain Assessment/Plan: F/u with neurology, physical therapist. 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 Code(s): M25.519 - PAIN IN UNSPECIFIED SHOULDER Qualifiers: Chronicity: unspecified Laterality: left Qualified Code(s): M25.512 - Pain in left shoulder (5) Arm paresthesia, left Code(s): R20.2 - PARESTHESIA OF SKIN (6) Anxiety about health Assessment/Plan: Pt worries about HR frequently being rapid. Will f/u HR and arrhythmia closely on medication therapy presently, with increased metoprolol dose now in effect. Code(s): F41.8 - OTHER SPECIFIED ANXIETY DISORDERS (7) Atypical chest pain Assessment/Plan: TNI<0.02 x 3. EKG: NSR; old IWMI; no acute changes (taken while pt had chest pressure today that was reproducible with palpation). Coronary angiogram 2012: patent coronary arteries. Pt walks 2-3 hours most days of the week (as a [employer] member, she often delivers food to the poor; she frequently lifts bulky and heavy cans and boxes). Code(s): R07.89 - OTHER CHEST PAIN (8) Obesity Assessment/Plan: Pt is 5'3" tall. At 20 yrs old, she weighed 90 lbs. She is now 184 lbs. She has recently changed to a healthy diet, and says she has already lost 10 lbs; she plans to lose 10-20 lbs more. Code(s): E66.9 - OBESITY, UNSPECIFIED
[2017-06-18] MEDS: RANOLAZINE E.R. 500 MG TABLET (FP) PO SCH (09:48)
[2017-06-18] MEDS: ASPIRIN 81 MG CHEWABLE TABLETS PO SCH (09:49)
[2017-06-18] MEDS: PANTOPRAZOLE 40 MG TABLET (FP) PO SCH (09:49)
[2017-06-18 11:29] VITALS: BP 129/69; PULSE 68; TEMP 98.1
--- NOTE | 2017-06-18 12:24 | DS ---
Physical Examination Vital Signs: Vital Signs Temperature 98.1 F 06/18/17 09:00 Pulse Rate 68 06/18/17 09:00 Respiratory Rate 18 06/18/17 09:00 Blood Pressure 129/69 06/18/17 09:00 O2 Sat by Pulse Oximetry (%) 99 06/18/17 09:00 Findings/Remarks: no further chest pain Cardiovascular: Yes: Regular Rate and Rhythm Respiratory: Yes: Regular, CTA Bilaterally Gastrointestinal: Yes: Normal Bowel Sounds, Soft Labs: CBC, BMP 06/17/17 09:40 06/17/17 09:40 Discharge Summary Reason For Visit: CHEST PAIN/HYPERTENSION/CVA Current Active Problems A-fib (Acute) Anxiety about health (Acute) Atrial fibrillation with RVR (Acute) Atypical chest pain (Acute) Cerebrovascular accident (CVA) (Acute) Chest pain (Acute) DVT prophylaxis (Acute) HLD (hyperlipidemia) (Acute) HTN (hypertension) (Acute) Obesity (Acute) Shoulder pain (Acute) Hospital Course: - Problems (1) A-fib Assessment/Plan: same meds-- monitor rate--SINUS 60'S on xarelto Code(s): I48.91 - UNSPECIFIED ATRIAL FIBRILLATION (2) Chest pain Assessment/Plan: Resolved CE AND EKG echo noted stress test cancelled by cardio-- Code(s): R07.9 - CHEST PAIN, UNSPECIFIED Qualifiers: Chest pain type: precordial pain Qualified Code(s): R07.2 - Precordial pain (3) HTN (hypertension) Assessment/Plan: monitor on current Vital Signs Period Temp Pulse Resp BP Sys/Leon Pulse Ox Last 24 Hr 97.5 F-98.1 F 82-112 16-20 101-140/52-85 97-99 meds Code(s): I10 - ESSENTIAL (PRIMARY) HYPERTENSION Qualifiers: Hypertension type: essential hypertension Qualified Code(s): I10 - Essential (primary) hypertension Condition: Improved - Instructions Referrals: Nikita Jackman [Primary Care Provider] - 1 Week Disposition: HOME - Home Medications Comprehensive Discharge Medication List: Ambulatory Orders Levothyroxine [Synthroid -] 25 mcg PO DAILY 02/02/14 Aspirin [ASA -] 81 mg PO DAILY 07/25/16 Pravastatin Sodium [Pravachol -] 40 mg PO HS 03/19/17 Rivaroxaban [Xarelto -] 20 mg PO DAILY #30 tablet 07/27/16 Omeprazole 40 mg PO DAILY 06/14/17 Metoprolol Succinate [Toprol XL -] 200 mg PO DAILY #60 tab.sr.24h 06/18/17 Ranolazine [Ranexa -] 500 mg PO BID #60 tab 06/18/17
[2017-06-18] MEDS ORDERED: FLU VACCINE QUAD 60 MCG/0.5 ML (MDV 17-18) IM ONE (13:45)
== END 2017-06-18 14:16 | disposition home or self-care (01) | DRG 310 ==
LOC: JER 16:25 → JERBED 21:24 → UNDOADMOB 22:20 → JERBED 22:20 → J4W 06-15 01:28 → OBSVTOIN 06-15 06:48 → J4W 06-15 15:41
PROVIDERS: ADMIT Internal Medicine; ATTEND Family Medicine
DX: I48.91 Unspecified atrial fibrillation (principal); R07.89 Other chest pain; I10 Essential (primary) hypertension; E78.5 Hyperlipidemia, unspecified; F41.9 Anxiety disorder, unspecified; M25.512 Pain in left shoulder; R20.2 Paresthesia of skin; M54.9 Dorsalgia, unspecified; M54.12 Radiculopathy, cervical region; E66.9 Obesity, unspecified; Z68.32 Body mass index [BMI] 32.0-32.9, adult; E03.9 Hypothyroidism, unspecified
CPT/HCPCS: 36415; 70450-TC; 70496-TC; 70498-TC; 80048; 80053; 81003; 81015; 82465; 82550; 83036; 83718; 83721; 83735; 84100; 84439; 84443; 84478; 84484; 85025; 85610; 86850; 86900; 86901; 93005; 93010; 93306-TC; 99285-25; G0378

== ENCOUNTER 2018-03-19 00:17 | Inpatient (IN) | payer MEDICARE, OTHER ==
--- NOTE | 2018-03-19 00:32 | PDOC ---
Attending Attestation - HPI HPI: 03/19/18 01:20 The patient is a 67 year old female, with a significant PMH of CAD s/p [place], atrial fibrillation, and hypertension, who presents to the emergency department with 2 days of chest pain. The patient describes the chest pain as a throbbing sensation that is worsened with exertion. The patient states her chest pain feels similar to her myocardial infarction 1 year ago. The patient also endorses progressively worsening dyspnea on exertion. The patient states she is only able to walk 4-5 blocks before feeling short of breath which she states is new for her. The patient denies headache and dizziness. Denies fever, chills, nausea, vomit, diarrhea and constipation. Denies dysuria, frequency, urgency and hematuria. Allergies: NKA Documentation prepared by Agusto Valentino, acting as healthcare or medical for Ligia Borrero MD - Physicial Exam PE: 03/19/18 01:20 GENERAL: Awake, alert, and fully oriented, in no acute distress HEAD: No signs of trauma EYES: PERRLA, EOMI, sclera anicteric, conjunctiva clear ENT: Auricles normal inspection, hearing grossly normal, nares patent, oropharynx clear without exudates. Moist mucosa NECK: Normal ROM, supple, no lymphadenopathy, JVD, or masses LUNGS: Breath sounds equal, clear to auscultation bilaterally. No wheezes, and no crackles HEART: Regular rate and rhythm, normal S1 and S2, no murmurs, rubs or gallops ABDOMEN: Soft, nontender, normoactive bowel sounds. No guarding, no rebound. No masses EXTREMITIES: Normal range of motion, no edema. No clubbing or cyanosis. No cords, erythema, or tenderness NEUROLOGICAL: Cranial nerves II through XII grossly intact. Normal speech, normal gait SKIN: Warm, Dry, normal turgor, no rashes or lesions noted. <Agusto Valentino - Last Filed: 03/19/18 01:21> - Resident Resident Name: Patricia Munroe - ED Attending Attestation I have performed the following: I have examined & evaluated the patient, The case was reviewed & discussed with the resident, I agree w/resident's findings & plan - Medical Decision Making 03/19/18 01:26 Pt states that she has had CP x 1 day prior to today. She states that she is able to eat and move her bowels and that she feels thirsty right now. Pt has rapid afib and she has PVCs on her EKG. Pt states that she feels dizzy. Her BP is low. EMS gave her 3 pills under her tongue likely nitro tablets.) 03/19/18 01:58 Pt has cardiomegaly and a boot shaped heart on portable. 03/19/18 03:28 Pt will be admitted for cardiac monitoring <Ligia Borrero - Last Filed: 03/19/18 03:28> Heart Score/ECG Review - Age Age: >/= 65 - ECG Intrepretation Rhythm: Irregularly Irregular - [place]: Normal - P and AL Delta Wave(s) Present: No WPW: No - QRS Q Wave Present: No - ST and T Early Repolarization: No Non Specific ST-T Wave changes: Yes Flattened T Waves: Yes - ECG Impressions Normal ECG: No Non-specific ST Elevation: No Ischemic Changes: Yes Tachycardia: Afib w/rapid Vent rate <Ligia Borrero - Last Filed: 03/19/18 03:28>
[2018-03-19] MEDS ORDERED: dilTIAZem HCL 50 MG/10 ML - 10 ML VIAL IVPUSH ONE (01:07)
[2018-03-19] MEDS ORDERED: SODIUM CHLORIDE 1,000 ML IV STA (01:07)
[2018-03-19 01:19] LABS: BASO % 0.4 % (0-2.0); EOS % 1.2 % (0-4.5); HEMATOCRIT 34.5 % (32.4-45.2); HEMOGLOBIN 11.7 GM/dL (10.7-15.3); LYMPH % 27.8 % (8-40); MCH 27.3 pg (25.7-33.7); MCHC 33.8 g/dl (32.0-36.0); MEAN CELL VOLUME 80.8 fl (80-96); MEAN PLT VOLUME 8.6 fl (7.5-11.1); MONO % 5.4 % (3.8-10.2); NEUT % 65.2 % (42.8-82.8); PLATELET COUNT 271 K/MM3 (134-434); RBC 4.27 M/mm3 (3.60-5.2); RDW 14.1 % (11.6-15.6); WHITE BLOOD COUNT 8.4 K/mm3 (4.0-10.0)
[2018-03-19] MEDS ORDERED: ACETAMINOPHEN 1000 MG/100 ML VIAL (NON FORMULARY) IVPB ONE (01:28)
[2018-03-19 01:36] LABS: INR 1.02 (0.83-1.09)
[2018-03-19 01:39] LABS: ACTIVATED PTT 34.2 SECONDS (25.2-36.5)
[2018-03-19] MEDS ORDERED: dilTIAZem HCL 125 MG/25 ML - 25 ML VIAL ONE (01:40)
[2018-03-19] MEDS ORDERED: ACETAMINOPHEN INJECTION 100 ML IVPB ONE (01:40)
[2018-03-19 01:49] LABS: ALBUMIN 3.2 g/dl (3.4-5.0); ALK PHOS 106 U/L (45-117); ANION GAP 7 MMOL/L (8-16); BILIRUBIN,TOTAL 0.2 mg/dL (0.2-1); BLOOD UREA NITROGEN 32 mg/dL (7-18); CALCIUM 7.7 mg/dL (8.5-10.1); CHLORIDE 113 mmol/L (98-107); CO2 26 mmol/L (21-32); CREATININE 1.6 mg/dL (0.55-1.3); GLUCOSE,RANDOM 100 mg/dL (74-106); POTASSIUM 3.8 mmol/L (3.5-5.1); SGOT/AST 47 U/L (15-37); SGPT/ALT 47 U/L (13-61); SODIUM 146 mmol/L (136-145); TOT PROT 6.5 g/dl (6.4-8.2)
--- NOTE | 2018-03-19 02:26 | HP ---
Admitting History and Physical - Primary Care Physician PCP: Nikita Jackman - Admission Chief Complaint: Chest Pain, Dizziness History of Present Illness: This is a 67 y/o woman with a past medical history of Paroxysmal Afib (on Xarelto), CAD s/p [place] Hypertension, Hyperlipidemia, TIA. Who presents to the ED via ambulance with chest pain and dizziness x 2 days. Patient is Latvian speaking, Seaters used #[id number]. Patient describes the chest pain as pressure to the midsternum radiating to her mid back. She reports the chest pain started while pulling her shopping cart filled with groceries from the store. Patient also reports having SOB after walking 2-3 blocks. Patient denies fever, cough, chills, SANDOVAL, palpitations, AP, N/V/D, constipation, dysuria. Pharmacy: [facility] [address] [place] [address] History Source: Patient, Medical Record Limitations to Obtaining History: Language Barrier ([employer] line- Marilynn, # [id number]) - Past Medical History ADDICTIONS COUNSELOR ASSISTANT: Yes: CVA (no residual), TIA Cardiovascular: Yes: AFIB, CAD, HTN, Hyperlipdemia, [place] Endocrine: Yes: Hypothyroidism - Past Surgical History Past Surgical History: Yes: Cholecystectomy Additional Past Surgical History: Cardiac Cath 2011 - Smoking History Smoking history: Never smoked Have you smoked in the past 12 months: No Aproximately how many cigarettes per day: 0 - Alcohol/Substance Use Hx Alcohol Use: No History of Substance Use: reports: None - Social History Usual Living Arrangement: Yes: Alone ADL: Independent History of Recent Travel: No Home Medications - Allergies Allergies/Adverse Reactions: Allergies Allergy/AdvReac Type Severity Reaction Status Date / Time No Known Drug Allergies Allergy Verified 03/19/18 00:52 - Home Medications Home Medications: Ambulatory Orders Levothyroxine [Synthroid -] 25 mcg PO DAILY 02/02/14 Aspirin [ASA -] 81 mg PO DAILY 07/25/16 Pravastatin Sodium [Pravachol -] 40 mg PO HS 07/25/16 Rivaroxaban [Xarelto -] 20 mg PO DAILY #30 tablet 07/27/16 Omeprazole 40 mg PO DAILY 06/14/17 Metoprolol Succinate [Toprol XL -] 200 mg PO DAILY #60 tab.sr.24h 06/18/17 Ranolazine [Ranexa -] 500 mg PO BID #60 tab 06/18/17 Review of Systems - Review of Systems Constitutional: reports: No Symptoms Eyes: reports: No Symptoms HENT: reports: No Symptoms Neck: reports: No Symptoms Cardiovascular: reports: Chest Pain, Shortness of Breath Respiratory: reports: SOB, SOB on Exertion Gastrointestinal: reports: No Symptoms Genitourinary: reports: No Symptoms Breasts: reports: No Symptoms Reported Musculoskeletal: reports: Back Pain Integumentary: reports: No Symptoms Neurological: reports: Dizziness Endocrine: reports: No Symptoms Hematology/Lymphatic: reports: No Symptoms Psychiatric: reports: No Symptoms Pain Intensity: 4 Physical Examination Vital Signs: Vital Signs Temperature 98.9 F 03/19/18 00:20 Pulse Rate 88 03/19/18 02:18 Respiratory Rate 22 H 03/19/18 02:18 Blood Pressure 117/78 03/19/18 02:18 O2 Sat by Pulse Oximetry (%) 99 03/19/18 02:18 Constitutional: Yes: Well Nourished, No Distress, Calm Eyes: Yes: WNL, Conjunctiva Clear, EOM Intact, PERRL HENT: Yes: WNL, Atraumatic, Normocephalic Neck: Yes: WNL, Supple, Trachea Midline Cardiovascular: Yes: Pulse Irregular, S1, S2, Other (CP reproducible on palpation) Respiratory: Yes: WNL, Regular, CTA Bilaterally Gastrointestinal: Yes: Normal Bowel Sounds, Soft, Abdomen, Obese ...Rectal Exam: Yes: Deferred Renal/: Yes: WNL Breast(s): Yes: WNL Musculoskeletal: Yes: Back Pain (mid lumbar aspect) Extremities: Yes: WNL Edema: No Peripheral Pulses WNL: Yes Integumentary: Yes: WNL Neurological: Yes: WNL, Alert, Oriented, Cran Nerves II-XII Intact ...Motor Strength: WNL Psychiatric: Yes: WNL, Alert, Oriented Labs: CBC, BMP 03/19/18 01:16 03/19/18 01:16 Troponin, BNP 03/19/18 01:16 Troponin I < 0.02 B-Natriuretic Peptide 7344.0 H Current Medications Generic Name Dose Route Start Last Admin Trade Name Freq PRN Reason Stop Dose Admin Aspirin 81 mg 03/19/18 10:00 Asa - PO DAILY [facility] Atorvastatin Calcium 10 mg 03/19/18 22:00 Lipitor - PO HS [facility] Levothyroxine Sodium 25 mcg 03/19/18 07:00 Synthroid - PO DAILY@0700 [facility] Metoprolol Succinate 200 mg 03/19/18 10:00 Toprol Xl - PO DAILY [facility] Rivaroxaban 15 mg 03/19/18 18:00 Xarelto - PO DAILY@1800 [facility] Imaging - Results Chest X-ray: Image Reviewed EKG: Image Reviewed Problem List - Problems (1) Atrial fibrillation with RVR Assessment/Plan: Cardizem IVP given in ED now rate controlled Continue cardiac monitoring [id number] 5 EKG- Afib with RVR, PVCs, Inferior Infarct age undetermined, ST & T wave abnormality, consider Anterolateral Ischemia, compared to prior study 06/15/17 unchanged Appreciate Cardiology consult Last Echo 06/2017 showed Trace to mild MR, Trace TR, RSVP normal, LVSF normal, LV wall motion normal Continue BB, Xarelto renal dosing Serial Enzymes Monitor CBC, BMP Code(s): I48.91 - UNSPECIFIED ATRIAL FIBRILLATION (2) Atypical chest pain Assessment/Plan: Likely secondary to muscular strain vs ACS Cardiac monitoring Chest Xray image- cardiomegaly, no effusion, no infiltrate EKG- Afib with RVR Appreciate Cardiology consult Continue Asa, Metoprolol Succinate, Lipitor Monitor CBC, BMP Mg, Phos, Lipid Profile in am Code(s): R07.89 - OTHER CHEST PAIN (3) HLD (hyperlipidemia) Assessment/Plan: Pravachol NF changed to Lipitor 10mg Monitor LFTs Code(s): E78.5 - HYPERLIPIDEMIA, UNSPECIFIED (4) HTN (hypertension) Assessment/Plan: Stable Monitor BP Continue BB Monitor renal function Code(s): I10 - ESSENTIAL (PRIMARY) HYPERTENSION Qualifiers: Hypertension type: essential hypertension Qualified Code(s): I10 - Essential (primary) hypertension (5) Hypothyroidism Assessment/Plan: Continue Levothyroxine TSH in am Code(s): E03.9 - HYPOTHYROIDISM, UNSPECIFIED Assessment/Plan 67 y/o woman PMHx of: Paroxysmal Afib (on Xarelto), CAD s/p [place], HTN, HLD, CVA ( no residual). Placed in Tele observation for Afib with RVR, Atypical Chest Pain for further evaluation of their emergent condition. Plan: FEN PO Fluids as tolerated Replete lytes prn Low Na Diet DVT ppx OOB SCDs Continue Xarelto Dispo: Tele Observation Visit type - Emergency Visit Emergency Visit: Yes ED Registration Date: 03/19/18 Care time: The patient presented to the Emergency Department on the above date and was hospitalized for further evaluation of their emergent condition. - New Patient This patient is new to me today: Yes Date on this admission: 03/19/18 - Critical Care Critical Care patient: No
--- NOTE | 2018-03-19 02:27 | PDOC ---
History of Present Illness - General Chief Complaint: Lightheaded Stated Complaint: DIZINESS Time Seen by Provider: 03/19/18 00:24 - History of Present Illness Initial Comments: 67 yo F with PMH of PR, cardiac cath, afib on eliquis, CVA, HLD presenting with chest pain x 2 days. Patient states that this pain is similar to that of when she had an PR one year ago. Pain is non-radiating, palpable, and nonpleuritic. No nausea, vomiting, or diaphoresis. Patient reports dyspnea on exertion. She is only able to walk four or five blocks before feeling winded which is unusual for her. No hemoptysis, no recent surgical history, no recent mobilization, no hormone use, no history of DVT or PE. Patient denies fever, but endorses chills. Past History - Past Medical History Allergies/Adverse Reactions: Allergies Allergy/AdvReac Type Severity Reaction Status Date / Time No Known Drug Allergies Allergy Verified 03/19/18 00:52 Home Medications: Ambulatory Orders Levothyroxine [Synthroid -] 25 mcg PO DAILY 02/02/14 Aspirin [ASA -] 81 mg PO DAILY 07/25/16 Pravastatin Sodium [Pravachol -] 40 mg PO HS 07/25/16 Rivaroxaban [Xarelto -] 20 mg PO DAILY #30 tablet 07/27/16 Omeprazole 40 mg PO DAILY 06/14/17 Metoprolol Succinate [Toprol XL -] 200 mg PO DAILY #60 tab.sr.24h 06/18/17 Ranolazine [Ranexa -] 500 mg PO BID #60 tab 06/18/17 Anemia: No Asthma: No Cancer: No Cardiac Disorders: Yes (mi, afib) CVA: No COPD: No CHF: No Dementia: No Diabetes: No GI Disorders: No Disorders: No HTN: Yes Hypercholesterolemia: No Kidney Stones: Yes Liver Disease: No Psychiatric Problems: Yes (DEPRESSION) Seizures: No Thyroid Disease: No - Surgical History Abdominal Surgery: No Appendectomy: No Cardiac Surgery: No (CARD CATH 04/2012) Cholecystectomy: Yes Lung Surgery: No Neurologic Surgery: No Orthopedic Surgery: No - Immunization History Immunization Up to Date: No - Suicide/Smoking/Psychosocial Hx Smoking Status: No Smoking History: Never smoked Have you smoked in the past 12 months: No Number of Cigarettes Smoked Daily: 0 Information on smoking cessation initiated: No Hx Alcohol Use: No Drug/Substance Use Hx: No Substance Use Type: None Hx Substance Use Treatment: No Review of Systems - Review of Systems Comments:: Constitutional: no fever, no chills HEENT: no throat pain, no dysphagia Cardiovascular: +chest pain, no palpitations Respiratory: no cough, +shortness of breath Gastrointestinal: no abdominal pain, no nausea, no vomiting Genitourinary: no dysuria, no frequency Musculoskeletal: no myalgia, no arthralgia Skin: no rash, no itching Neurologic: no headache, +lightheadedness *Physical Exam - Vital Signs Last Vital Signs Temp Pulse Resp BP Pulse Ox 98.9 F 88 22 H 117/78 99 03/19/18 00:20 03/19/18 02:18 03/19/18 02:18 03/19/18 02:18 03/19/18 02:18 - Physical Exam Comments: General: Awake, alert, and fully oriented, in no acute distress Head: No signs of trauma Eyes: EOMI, sclera anicteric ENT: Moist mucus membranes Neck: Normal ROM, supple Lungs: Lungs clear, Normal breath sounds Cardio: Regular rhythm, S1 and S2 present Abdomen: Soft, nontender. No guarding, no rebound, no masses Extremities: Normal range of motion, Distal pulses present; no LE edema SKIN: Warm, Dry, normal turgor Neurologic: Cranial nerves II through XII grossly intact. Normal speech ED Treatment Course - LABORATORY CBC & Chemistry Diagram: 03/19/18 01:16 03/19/18 04:53 - ADDITIONAL ORDERS Additional order review: Laboratory Results 03/19/18 03/19/18 01:16 01:16 PT with INR 12.00 INR 1.02 PTT (Actin FS) 34.2 Sodium 146 H Potassium 3.8 Chloride 113 H Carbon Dioxide 26 Anion Gap 7 L BUN 32 H Creatinine 1.6 H Creat Clearance w eGFR 32.15 Random Glucose 100 Calcium 7.7 L Total Bilirubin 0.2 AST 47 H ALT 47 Alkaline Phosphatase 106 Creatine Kinase 66 Troponin I < 0.02 B-Natriuretic Peptide 7344.0 H Total Protein 6.5 Albumin 3.2 L 03/19/18 01:16 RBC 4.27 MCV 80.8 MCHC 33.8 RDW 14.1 MPV 8.6 Neutrophils % 65.2 Lymphocytes % 27.8 Monocytes % 5.4 Eosinophils % 1.2 Basophils % 0.4 - RADIOLOGY Radiology Studies Ordered: Category Date Time Status CHEST X-RAY PORTABLE* [RAD] Stat Radiology 03/19/18 00:58 Taken - Medications Given in the ED: ED Medications Discontinued Medications Generic Name Dose Route Start Last Admin Trade Name Freq PRN Reason Stop Dose Admin Acetaminophen 1,000 mg 03/19/18 01:28 03/19/18 01:46 Ofirmev Injection - IVPB 03/19/18 01:29 1,000 mg ONCE ONE Administration Diltiazem HCl 10 mg 03/19/18 01:07 03/19/18 01:45 Cardizem Injection - IVPUSH 03/19/18 01:08 10 mg ONCE ONE Administration Sodium Chloride 1,000 mls @ 1,000 mls/hr 03/19/18 01:07 03/19/18 01:45 Normal Saline - IV 03/19/18 02:06 1,000 mls/hr ASDIR STA Administration Medical Decision Making - Medical Decision Making 67 yo F with PMH of PR, cardiac cath, afib on eliquis, CVA, HLD presenting with chest pain x 2 days. -Cardiac workup -Labs: no anemia or leukocytosis, hypernatremic Na 146, KANA Cr=1.6, BNP 7344, Tpn negative -CXR similar to previous with enlarged cardiac silhouette -EKG: rate 118, QTc 440, Afib with RVR -Diltiazem given -HEART score of 5 -Discussed case with inpatient team who accepted patient for admission *DC/Admit/Observation/Transfer Diagnosis at time of Disposition: Chest pain - Discharge Dispostion Condition at time of disposition: Guarded Decision to Admit order: Yes - Referrals - Patient Instructions - Post Discharge Activity
[2018-03-19 03:13] LABS: URINE APPEARANCE CLEAR; URINE BILIRUBIN NEGATIVE (<2.0 mg/dL); URINE COLOR STRAW; URINE GLUCOSE (UA) NEGATIVE (NEGATIVE); URINE KETONE NEGATIVE (NEGATIVE); URINE LEUK ESTERASE NEGATIVE (NEGATIVE); URINE NITRITE NEGATIVE (NEGATIVE); URINE PROTEIN NEGATIVE (NEGATIVE); URINE UROBILINOGEN NEGATIVE mg/dL (0.2-1.0)
[2018-03-19 03:15] LABS: EPI CELLS FEW /HPF (FEW); URINE BACTERIA RARE /hpf (NONE SEEN); URINE MUCUS RARE
[2018-03-19 05:33] LABS: ANION GAP 6 MMOL/L (8-16); BLOOD UREA NITROGEN 30 mg/dL (7-18); CALCIUM 8.1 mg/dL (8.5-10.1); CHLORIDE 111 mmol/L (98-107); CO2 28 mmol/L (21-32); CREATININE 1.4 mg/dL (0.55-1.3); GLUCOSE,RANDOM 95 mg/dL (74-106); MAGNESIUM 1.9 mg/dL (1.8-2.4); PHOSPHOROUS 3.5 mg/dL (2.5-4.9); POTASSIUM 3.9 mmol/L (3.5-5.1); SODIUM 144 mmol/L (136-145)
[2018-03-19] MEDS ORDERED: LEVOTHYROXINE NA 25 MCG TABLET (FP) ONE (07:24)
[2018-03-19] MEDS: LEVOTHYROXINE NA 25 MCG TABLET (FP) PO SCH (07:32)
[2018-03-19] MEDS ORDERED: ASPIRIN 81 MG CHEWABLE TABLETS ONE (10:15)
[2018-03-19] MEDS: ASPIRIN 81 MG CHEWABLE TABLETS PO SCH (10:28)
--- NOTE | 2018-03-19 10:59 | PN ---
Progress Note, Physician Chief Complaint: chest pain - Current Medication List Current Medications: Active Medications Aspirin (Asa -) 81 mg PO DAILY [facility] Last Admin: 03/19/18 10:28 Dose: 81 mg Atorvastatin Calcium (Lipitor -) 10 mg PO HS [facility] Levothyroxine Sodium (Synthroid -) 25 mcg PO DAILY@0700 [facility] Last Admin: 03/19/18 07:32 Dose: 25 mcg Metoprolol Succinate (Toprol Xl -) 200 mg PO DAILY [facility] Last Admin: 03/19/18 10:28 Dose: 200 mg Pantoprazole Sodium (Protonix -) 20 mg PO DAILY [facility] Ranolazine (Ranexa -) 500 mg PO BID [facility] Rivaroxaban (Xarelto -) 15 mg PO DAILY@1800 [facility] - Objective Vital Signs: Vital Signs Temperature 97.9 F 03/19/18 10:27 Pulse Rate 120 H 03/19/18 10:27 Respiratory Rate 18 03/19/18 10:27 Blood Pressure 122/73 03/19/18 10:27 O2 Sat by Pulse Oximetry (%) 97 03/19/18 10:27 Labs: CBC, BMP 03/19/18 01:16 03/19/18 04:53 INR, PTT INR 1.02 (0.83-1.09) 03/19/18 01:16
[2018-03-19] MEDS: RANOLAZINE E.R. 500 MG TABLET (FP) PO SCH ×2 (13:59→22:20)
[2018-03-19] MEDS: PANTOPRAZOLE 20 MG TABLET (FP) PO SCH (13:59)
[2018-03-19 15:32] VITALS: BMI 31.9
[2018-03-19] MEDS: RIVAROXABAN 15 MG TABLET PO SCH (17:22)
--- NOTE | 2018-03-19 18:49 | EKG ---
Test Reason : Blood Pressure : / mmHG Vent. Rate : 105 BPM Atrial Rate : 063 BPM P-R Int : 000 ms QRS Dur : 078 ms QT Int : 346 ms P-R-T Axes : 000 011 208 degrees QTc Int : 457 ms ATRIAL FIBRILLATION WITH RAPID VENTRICULAR RESPONSE WITH PREMATURE VENTRICULAR OR ABERRANTLY CONDUCTED COMPLEXES INFERIOR INFARCT (CITED ON OR BEFORE 25-JUL-2008) ABNORMAL ECG WHEN COMPARED WITH ECG OF 19-MAR-2018 00:48, T WAVE VARIATION Confirmed by MAITE WOODWARD MD ([id number]) on 03/19/2018 6:49:11 PM Referred By: Confirmed By:MAITE WOODWARD MD
--- NOTE | 2018-03-19 18:50 | EKG ---
Test Reason : Blood Pressure : / mmHG Vent. Rate : 118 BPM Atrial Rate : 174 BPM P-R Int : 000 ms QRS Dur : 074 ms QT Int : 314 ms P-R-T Axes : 000 019 137 degrees QTc Int : 440 ms ATRIAL FIBRILLATION WITH RAPID VENTRICULAR RESPONSE WITH PREMATURE VENTRICULAR OR ABERRANTLY CONDUCTED COMPLEXES INFERIOR INFARCT (CITED ON OR BEFORE 25-JUL-2008) ABNORMAL ECG WHEN COMPARED WITH ECG OF 17-JUN-2017 10:22, ATRIAL FIBRILLATION HAS REPLACED SINUS RHYTHM VENT. RATE HAS INCREASED BY 63 BPM T WAVE VARIATION Confirmed by MAITE WOODWARD MD ([id number]) on 03/19/2018 6:50:20 PM Referred By: Confirmed By:MAITE WOODWARD MD
--- NOTE | 2018-03-19 22:13 | CON.CARD ---
Consult Consult Specialty:: Cardiology Reason for Consultation:: af rvr - History of Present Illness Chief Complaint: palpitations History of Present Illness: This is a 67 y/o woman with a past medical history of Paroxysmal Afib (on Xarelto), non obstructive CAD Hypertension, Hyperlipidemia, TIA. Who presents to the ED via ambulance with chest pain and dizziness x 2 days. Patient is Maori speaking, FOUNDD line used #[id number]. Patient describes the chest pain as pressure to the midsternum radiating to her mid back. She reports the chest pain started while pulling her shopping cart filled with groceries from the store. Patient also reports having SOB after walking 2-3 blocks. Patient denies fever, cough, chills, SANDOVAL, palpitations, AP, N/V/D, constipation, dysuria. PMH C. Cath mild non-obstructive disease 2012 HHD HTN paroxysmal Atrial Fibrilation 2010 - History Source History Provided By: Patient, Medical Record - Past Medical History MANAGER COMPLIANCE: Yes: CVA (no residual), TIA Cardio/Vascular: Yes: AFIB, HTN, Hyperlipdemia, [place] ...: No Endocrine: Yes: Hypothyroidism - Past Surgical History Past Surgical History: Yes: Cholecystectomy - Alcohol/Substance Use Hx Alcohol Use: No History of Substance Use: reports: None - Smoking History Smoking history: Never smoked Have you smoked in the past 12 months: No Aproximately how many cigarettes per day: 0 - Social History ADL: Independent History of Recent Travel: No Home Medications - Allergies Allergies/Adverse Reactions: Allergies Allergy/AdvReac Type Severity Reaction Status Date / Time No Known Drug Allergies Allergy Verified 03/19/18 00:52 - Home Medications Home Medications: Ambulatory Orders Levothyroxine [Synthroid -] 25 mcg PO DAILY 02/02/14 Aspirin [ASA -] 81 mg PO DAILY 07/25/16 Pravastatin Sodium [Pravachol -] 40 mg PO HS 07/25/16 Rivaroxaban [Xarelto -] 20 mg PO DAILY #30 tablet 07/27/16 Omeprazole 40 mg PO DAILY 06/14/17 Metoprolol Succinate [Toprol XL -] 200 mg PO DAILY #60 tab.sr.24h 06/18/17 Ranolazine [Ranexa -] 500 mg PO BID #60 tab 06/18/17 Review of Systems - Review of Systems Constitutional: reports: No Symptoms Eyes: reports: No Symptoms HENT: reports: No Symptoms Neck: reports: No Symptoms Cardiovascular: reports: Chest Pain, Palpitations Gastrointestinal: reports: No Symptoms Genitourinary: reports: No Symptoms Breasts: reports: No Symptoms Reported Musculoskeletal: reports: No Symptoms Integumentary: reports: No Symptoms Neurological: reports: No Symptoms Endocrine: reports: No Symptoms Hematology/Lymphatic: reports: No Symptoms Psychiatric: reports: No Symptoms Vital Signs: Vital Signs Temperature 97.7 F 03/19/18 20:52 Pulse Rate 112 H 03/19/18 20:52 Respiratory Rate 20 03/19/18 20:52 Blood Pressure 112/80 03/19/18 20:52 O2 Sat by Pulse Oximetry (%) 98 03/19/18 15:22 Constitutional: Yes: Well Nourished, No Distress, Calm Eyes: Yes: WNL, Conjunctiva Clear, EOM Intact HENT: Yes: WNL, Atraumatic, Normocephalic Neck: Yes: WNL, Supple, Trachea Midline Respiratory: Yes: WNL, Regular, CTA Bilaterally Gastrointestinal: Yes: WNL, Normal Bowel Sounds Renal/: Yes: WNL Cardiovascular: Yes: WNL, Regular Rate and Rhythm Musculoskeletal: Yes: WNL Extremities: Yes: WNL Integumentary: Yes: WNL Neurological: Yes: WNL, Alert, Oriented ...Motor Strength: WNL Psychiatric: Yes: WNL, Alert, Oriented - Other Data Labs, Other Data: CBC, BMP 03/19/18 01:16 03/19/18 04:53 INR, PTT INR 1.02 (0.83-1.09) 03/19/18 01:16 Troponin, BNP 03/19/18 03/19/18 03/19/18 01:16 04:53 13:00 Troponin I < 0.02 < 0.02 < 0.02 B-Natriuretic Peptide 7344.0 H Troponin, BNP 03/19/18 03/19/18 03/19/18 01:16 04:53 13:00 Troponin I < 0.02 < 0.02 < 0.02 B-Natriuretic Peptide 7344.0 H Imaging - Results Chest X-ray: Image Reviewed (no i/e) EKG: Image Reviewed (af rvr) Problem List - Problems (1) CKD (chronic kidney disease) Code(s): N18.9 - CHRONIC KIDNEY DISEASE, UNSPECIFIED (2) Chest pain Code(s): R07.9 - CHEST PAIN, UNSPECIFIED (3) Hypothyroidism Code(s): E03.9 - HYPOTHYROIDISM, UNSPECIFIED (4) A-fib Code(s): I48.91 - UNSPECIFIED ATRIAL FIBRILLATION (5) Anxiety about health Code(s): F41.8 - OTHER SPECIFIED ANXIETY DISORDERS (6) Arm paresthesia, left Code(s): R20.2 - PARESTHESIA OF SKIN (7) Atrial fibrillation with RVR Code(s): I48.91 - UNSPECIFIED ATRIAL FIBRILLATION (8) Atypical chest pain Code(s): R07.89 - OTHER CHEST PAIN (9) Back pain Code(s): M54.9 - DORSALGIA, UNSPECIFIED (10) Cerebrovascular accident (CVA) Code(s): I63.9 - CEREBRAL INFARCTION, UNSPECIFIED Qualifiers: CVA mechanism: unspecified Qualified Code(s): I63.9 - Cerebral infarction, unspecified (11) Cervical radicular pain Code(s): M54.12 - RADICULOPATHY, CERVICAL REGION (12) DVT prophylaxis Code(s): [id number] - (13) H/O acute myocardial infarction Code(s): I25.2 - OLD MYOCARDIAL INFARCTION (14) HLD (hyperlipidemia) Code(s): E78.5 - HYPERLIPIDEMIA, UNSPECIFIED (15) HTN (hypertension) Code(s): I10 - ESSENTIAL (PRIMARY) HYPERTENSION Qualifiers: Hypertension type: essential hypertension Qualified Code(s): I10 - Essential (primary) hypertension (16) Left knee sprain Code(s): S83.92XA - SPRAIN OF UNSPECIFIED SITE OF LEFT KNEE, INITIAL ENCOUNTER Qualifiers: Encounter type: initial encounter Involved ligament of knee: medial collateral ligament Qualified Code(s): S83.412A - Sprain of medial collateral ligament of left knee, initial encounter (17) Obesity Code(s): E66.9 - OBESITY, UNSPECIFIED (18) Rapid atrial fibrillation Code(s): I48.91 - UNSPECIFIED ATRIAL FIBRILLATION (19) Shoulder pain Code(s): M25.519 - PAIN IN UNSPECIFIED SHOULDER Qualifiers: Chronicity: unspecified Laterality: left Qualified Code(s): M25.512 - Pain in left shoulder (20) UTI (lower urinary tract infection) Code(s): N39.0 - URINARY TRACT INFECTION, SITE NOT SPECIFIED Assessment/Plan CP Palpitations AF RVR C. Cath mild non-obstructive disease 2012 HHD HTN paroxysmal Atrial Fibrilation 2010 Plan r/o mi telemetry cont AC restart home meds
[2018-03-19] MEDS: ATORVASTATIN CA 10 MG TABLET (FP) PO SCH (22:20)
[2018-03-20] MEDS: LEVOTHYROXINE NA 25 MCG TABLET (FP) PO SCH ×2 (05:57→07:30)
[2018-03-20] MEDS: RANOLAZINE E.R. 500 MG TABLET (FP) PO SCH (07:40)
[2018-03-20] MEDS: ASPIRIN 81 MG CHEWABLE TABLETS PO SCH (07:40)
--- NOTE | 2018-03-20 08:47 | PN ---
Progress Note, Physician History of Present Illness: c/o sob and pain on inspitration - Current Medication List Current Medications: Active Medications Aspirin (Asa -) 81 mg PO DAILY [facility] Last Admin: 03/19/18 10:28 Dose: 81 mg Atorvastatin Calcium (Lipitor -) 10 mg PO HS [facility] Last Admin: 03/19/18 22:20 Dose: 10 mg Levothyroxine Sodium (Synthroid -) 25 mcg PO DAILY@0700 [facility] Last Admin: 03/20/18 05:57 Dose: 25 mcg Metoprolol Succinate (Toprol Xl -) 200 mg PO DAILY [facility] Last Admin: 03/19/18 10:28 Dose: 200 mg Pantoprazole Sodium (Protonix -) 20 mg PO DAILY [facility] Last Admin: 03/19/18 13:59 Dose: 20 mg Ranolazine (Ranexa -) 500 mg PO BID [facility] Last Admin: 03/19/18 22:20 Dose: 500 mg Rivaroxaban (Xarelto -) 15 mg PO DAILY@1800 [facility] Last Admin: 03/19/18 17:22 Dose: 15 mg - Objective Vital Signs: Vital Signs Temperature 98.5 F 03/20/18 02:00 Pulse Rate 114 H 03/20/18 06:00 Respiratory Rate 20 03/20/18 06:00 Blood Pressure 119/64 03/20/18 06:00 O2 Sat by Pulse Oximetry (%) 98 03/19/18 15:22 Cardiovascular: Yes: Tachycardia, Pulse Irregular, S1, S2 Respiratory: Yes: On Nasal O2, Rhonchi Gastrointestinal: Yes: Normal Bowel Sounds, Soft Labs: CBC, BMP 03/19/18 01:16 03/19/18 04:53 INR, PTT INR 1.02 (0.83-1.09) 03/19/18 01:16 Problem List - Problems (1) Chest pain Assessment/Plan: Atypical tele ct of chest cardio on board ekg and ce Code(s): R07.9 - CHEST PAIN, UNSPECIFIED (2) A-fib Assessment/Plan: -on xarelto and cardizem -dig x 1 Code(s): I48.91 - UNSPECIFIED ATRIAL FIBRILLATION (3) CKD (chronic kidney disease) Assessment/Plan: Laboratory Tests 03/19/18 03/19/18 01:16 04:53 Creatinine 1.6 H 1.4 H Monitor Code(s): N18.9 - CHRONIC KIDNEY DISEASE, UNSPECIFIED (4) Hypothyroidism Assessment/Plan: -On synthroid 25 -tsh 4.5 Code(s): E03.9 - HYPOTHYROIDISM, UNSPECIFIED
[2018-03-20] MEDS ORDERED: DIGOXIN 0.5 MG/2 ML AMPUL IVPUSH ONE (10:00)
[2018-03-20] MEDS: PANTOPRAZOLE 20 MG TABLET (FP) PO SCH (10:10)
--- NOTE | 2018-03-20 10:38 | CONSULT ---
Consultation: CONSULT REQUEST: Nephrology Resident HISTORY OF PRESENT ILLNESS: 67yo F with history of atrial fibrillation, CAD s/p cardiac stenting, and prior CVA who presented initially to the hospital with tight chest pain and dizziness while pushing her shopping cart at the grocery store. She reports experiencing her tight midsternal chestpain first and then with followed by her dizziness for multiple minutes. Pt reports decreased exercise tolerance over the past year and now can only walk 2-3 blocks before experiencing chest pain. We were asked to medically evaluate her due to a rise in Cr. She reports that her PMD has stated she has had some type of kidney injury before, but she does not know why. She has never been on dialysis before. Pt currently has no chest pain, but has very scarce, minimal, L-sided jaw and neck pain that's dull to touch. She denies any shortness of breath or palpitations at this time. Denies any fevers/chills, abdominal pain, diarrhea/ constipation, nausea, current dizziness, vomiting, peripheral edema. PMHx: CVA (no residual deficits) Atrial Fibrillation CAD s/p PCI HTN HLD Hypothyroidism PSHx: Cardiac stenting (unknown material) Cholecystectomy SoHx: Tobacco: Denies Alcohol: Denies Drugs: Denies Lives at home and is independent in ADLs Allergies: NKDA REVIEW OF SYSTEMS: CONSTITUTIONAL: Absent: fever, chills, diaphoresis, generalized weakness, malaise, loss of appetite HEENT: Absent: rhinorrhea, nasal congestion, throat pain, throat swelling, difficulty swallowing, mouth swelling, ear pain, eye pain, visual changes CARDIOVASCULAR: Absent: current chest pain, syncope, palpitations, lightheadedness, peripheral edema RESPIRATORY: Absent: cough, shortness of breath, dyspnea with exertion, orthopnea, wheezing GASTROINTESTINAL: Absent: abdominal pain, abdominal distension, nausea, vomiting, diarrhea, constipation GENITOURINARY: Absent: dysuria, frequency, urgency, hesitancy, hematuria, flank pain MUSCULOSKELETAL: Present: Neck pain Absent: myalgia, arthralgia, joint swelling, back pain SKIN: Absent: rash, itching, pallor NEUROLOGIC: Absent: headache, focal weakness or paresthesias, dizziness, unsteady gait, seizure, bladder or bowel incontinence PSYCHIATRIC: Absent: anxiety, depression PHYSICAL EXAMINATION Vital Signs - 24 hr 03/19/18 03/19/18 03/19/18 15:00 15:22 17:00 Temperature 98.0 F 98 F 98.1 F Pulse Rate 114 H 89 Pulse Rate [ 99 H Apical] Respiratory 18 18 20 Rate Blood Pressure 122/64 118/48 L Blood Pressure 116/71 [Right Arm] O2 Sat by Pulse 98 98 Oximetry (%) 03/19/18 03/20/18 03/20/18 20:52 02:00 06:00 Temperature 97.7 F 98.5 F Pulse Rate 112 H 108 H 114 H Pulse Rate [ Apical] Respiratory 20 18 20 Rate Blood Pressure 112/80 105/82 119/64 Blood Pressure [Right Arm] O2 Sat by Pulse Oximetry (%) 03/20/18 03/20/18 09:00 09:04 Temperature 98.5 F Pulse Rate 76 Pulse Rate [ Apical] Respiratory 20 20 Rate Blood Pressure 112/60 Blood Pressure [Right Arm] O2 Sat by Pulse 96 Oximetry (%) GENERAL: NAD, awake, alert, and fully oriented, sitting in bed HEENT: EOMI, ANDREW, NC/AT, sclera anicteric, MMM NECK: No JVD, slight discomfort with L sided neck palpation, no bruits auscultated LUNGS: CTA bilaterally. No wheezes, and no crackles. No accessory muscle use. HEART: RRR, normal S1 and S2 without murmur ABDOMEN: Soft, NT/ND, normoactive bowel sounds, no guarding MUSCULOSKELETAL: No CVA tenderness. UPPER EXTREMITIES: 2+ DP pulses, warm, No peripheral edema. PSYCHIATRIC: Cooperative. Good eye contact. Appropriate mood and affect. SKIN: Warm, dry, no rashes or lesions noted, surgical port scars on abdomen noted Laboratory Results - last 24 hr 03/19/18 13:00 Troponin I < 0.02 Free T4 0.99 Active Medications Generic Name Dose Route Start Last Admin Trade Name Freq PRN Reason Stop Dose Admin Aspirin 81 mg 03/19/18 10:00 03/19/18 10:28 Asa - PO 81 mg DAILY ARVIND Administration Atorvastatin Calcium 10 mg 03/19/18 22:00 03/19/18 22:20 Lipitor - PO 10 mg HS ARVIND Administration Levothyroxine Sodium 25 mcg 03/19/18 07:00 03/20/18 05:57 Synthroid - PO 25 mcg DAILY@0700 ARVIND Administration Metoprolol Succinate 200 mg 03/19/18 10:00 03/19/18 10:28 Toprol Xl - PO 200 mg DAILY ARVIND Administration Pantoprazole Sodium 20 mg 03/19/18 11:00 03/19/18 13:59 Protonix - PO 20 mg DAILY ARVIND Administration Ranolazine 500 mg 03/19/18 11:00 03/19/18 22:20 Ranexa - PO 500 mg BID ARVIND Administration Rivaroxaban 15 mg 03/19/18 18:00 03/19/18 17:22 Xarelto - PO 15 mg DAILY@1800 ARVIND Administration ASSESSMENT/PLAN: Acute kidney injury Chest pain r/o ACS Atrial fibrillation HTN HLD Hypothyroidism Pt on monitor with multiple episodes of Afib with RVR. Likely KANA might be 2/2 to this however cannot r/o other causes at this time --Baseline Cr ~1.0 with rise to 1.4 currently (downtrending from yesterday) --Will send urine electrolytes to calculate FeNa --Renal U/S Monitor Cr Avoid nephrotoxic agents HR control for atrial fibrillation Rest per primary and cardiology teams Dispo: Continue current mgmt. Thank you for this consultative opportunity Case discussed with Dr. Marni Martin, DO - IM PGY-2 Dispo: We will continue to follow the patient. Thank you for this consultative opportunity. Visit type - Emergency Visit Emergency Visit: Yes ED Registration Date: 03/19/18 Care time: The patient presented to the Emergency Department on the above date and was hospitalized for further evaluation of their emergent condition. - New Patient This patient is new to me today: Yes Date on this admission: 03/20/18 - Critical Care Critical Care patient: No
--- NOTE | 2018-03-20 10:42 | EKG ---
Test Reason : Blood Pressure : / mmHG Vent. Rate : 133 BPM Atrial Rate : 147 BPM P-R Int : 000 ms QRS Dur : 076 ms QT Int : 308 ms P-R-T Axes : 000 049 116 degrees QTc Int : 458 ms ATRIAL FIBRILLATION WITH RAPID VENTRICULAR RESPONSE INFERIOR INFARCT (CITED ON OR BEFORE 25-JUL-2008) ABNORMAL ECG WHEN COMPARED WITH ECG OF 19-MAR-2018 03:47, NO SIGNIFICANT CHANGE WAS FOUND Confirmed by TRACE VAZQUEZ, MAITE ([id number]) on 03/20/2018 10:41:31 AM Referred By: SRIKANTH DUMONT Confirmed By:MAITE WOODWARD MD
--- NOTE | 2018-03-20 11:56 | PN ---
Teaching Attending Note Name of Resident: Yogi Martin (Nephrology) ATTENDING PHYSICIAN STATEMENT I saw and evaluated the patient. I reviewed the resident's note and discussed the case with the resident. I agree with the resident's findings and plan as documented. Renal Pt is a 67 year old female with pmhx of CAD, a-fib, and HTN who presents to the ER with chest pain. She was found to have renal failure and I was called to evaluate her. She says that a few months ago her pmd told her that her renal function was mildly abnormal. She also complains of shortness of breath on ambulation. She denies dysuria or hematuria. pmhx cad a-fib htn cva family hx denies social hx neg ros chest pain sob nkda Current Medications Generic Name Dose Route Start Last Admin Trade Name Freq PRN Reason Stop Dose Admin Aspirin 81 mg 03/19/18 10:00 03/19/18 10:28 Asa - PO 81 mg DAILY ARVIND Administration Atorvastatin Calcium 10 mg 03/19/18 22:00 03/19/18 22:20 Lipitor - PO 10 mg HS ARVIND Administration Levothyroxine Sodium 25 mcg 03/19/18 07:00 03/20/18 05:57 Synthroid - PO 25 mcg DAILY@0700 ARVIND Administration Metoprolol Succinate 200 mg 03/19/18 10:00 03/19/18 10:28 Toprol Xl - PO 200 mg DAILY ARVIND Administration Pantoprazole Sodium 20 mg 03/19/18 11:00 03/19/18 13:59 Protonix - PO 20 mg DAILY ARVIND Administration Ranolazine 500 mg 03/19/18 11:00 03/19/18 22:20 Ranexa - PO 500 mg BID ARVIND Administration Rivaroxaban 15 mg 03/19/18 18:00 03/19/18 17:22 Xarelto - PO 15 mg DAILY@1800 ARVIND Administration Selected Entries 03/20/18 03/20/18 03/20/18 02:00 06:00 09:04 Pulse Rate 114 H Blood Pressure 105/82 119/64 112/60 Laboratory Tests 06/15/17 06/17/17 03/19/18 06:11 09:40 01:16 Hgb 11.7 Sodium Creatinine 1.0 1.0 Urine Protein Urine Blood 03/19/18 03/19/18 03/19/18 01:16 02:42 04:53 Hgb Sodium 146 H 144 Creatinine 1.6 H 1.4 H Urine Protein Negative Urine Blood 2+ H cardio s1s2 irreg tachy pulm clear GI soft ext neg edema neuro awake and alert psych calm circ pos pulses Impression 1. KANA 2. a-fib 3. hx cva 4. hypothyroid 5. htn 6. CAD 7. microscopic hematuria Plan - check urine lytes and cartographic technician - check renal ultrasound - start 1/2 ns at 50 cc and repeat labs in am - will need follow up after discharge - will attempt to obtain outpt records as she says she did have bloodwork and a urine studies done a few months ago - will comment more on etiology after reviewing data
[2018-03-20] MEDS ORDERED: SODIUM CHLORIDE 0.45% 1,000 ML IV SCH (12:00)
--- NOTE | 2018-03-20 13:44 | PN ---
Progress Note, Physician History of Present Illness: This is a 67 y/o woman with a past medical history of Paroxysmal Afib (on Xarelto), non obstructive CAD Hypertension, Hyperlipidemia, TIA. Who presents to the ED via ambulance with chest pain and dizziness x 2 days. Patient is Yakut speaking, [employer] line used #[id number]. Patient describes the chest pain as pressure to the midsternum radiating to her mid back. She reports the chest pain started while pulling her shopping cart filled with groceries from the store. Patient also reports having SOB after walking 2-3 blocks. Patient denies fever, cough, chills, SANDOVAL, palpitations, AP, N/V/D, constipation, dysuria. PMH C. Cath mild non-obstructive disease 2011 HHD HTN paroxysmal Atrial Fibrilation 2010 - Current Medication List Current Medications: Active Medications Aspirin (Asa -) 81 mg PO DAILY [facility] Last Admin: 03/20/18 07:40 Dose: 81 mg Atorvastatin Calcium (Lipitor -) 10 mg PO HS [facility] Last Admin: 03/19/18 22:20 Dose: 10 mg Sodium Chloride (1/2 Normal Saline) 1,000 mls @ 50 mls/hr IV ASDIR [facility] Stop: 03/21/18 11:57 Last Admin: 03/20/18 12:12 Dose: 50 mls/hr Levothyroxine Sodium (Synthroid -) 25 mcg PO DAILY@0700 [facility] Last Admin: 03/20/18 07:30 Dose: Not Given Metoprolol Succinate (Toprol Xl -) 200 mg PO DAILY [facility] Last Admin: 03/20/18 07:40 Dose: 200 mg Pantoprazole Sodium (Protonix -) 20 mg PO DAILY [facility] Last Admin: 03/20/18 10:10 Dose: 20 mg Rivaroxaban (Xarelto -) 15 mg PO DAILY@1800 [facility] Last Admin: 03/19/18 17:22 Dose: 15 mg - Objective Vital Signs: Vital Signs Temperature 98.5 F 03/20/18 09:04 Pulse Rate 58 L 03/20/18 10:30 Respiratory Rate 20 03/20/18 09:04 Blood Pressure 112/60 03/20/18 09:04 O2 Sat by Pulse Oximetry (%) 96 03/20/18 09:00 Eyes: Yes: WNL, Conjunctiva Clear, EOM Intact HENT: Yes: WNL, Atraumatic, Normocephalic Neck: Yes: WNL, Supple, Trachea Midline Cardiovascular: Yes: WNL, Regular Rate and Rhythm Respiratory: Yes: WNL, Regular, CTA Bilaterally Gastrointestinal: Yes: WNL, Normal Bowel Sounds Genitourinary: Yes: WNL Musculoskeletal: Yes: WNL Extremities: Yes: WNL Edema: No Integumentary: Yes: WNL Neurological: Yes: WNL, Alert, Oriented ...Motor Strength: WNL Psychiatric: Yes: WNL Labs: CBC, BMP 03/19/18 01:16 03/19/18 04:53 INR, PTT INR 1.02 (0.83-1.09) 03/19/18 01:16 Problem List - Problems (1) CKD (chronic kidney disease) Code(s): N18.9 - CHRONIC KIDNEY DISEASE, UNSPECIFIED (2) Chest pain Code(s): R07.9 - CHEST PAIN, UNSPECIFIED (3) Hypothyroidism Code(s): E03.9 - HYPOTHYROIDISM, UNSPECIFIED (4) A-fib Code(s): I48.91 - UNSPECIFIED ATRIAL FIBRILLATION (5) Anxiety about health Code(s): F41.8 - OTHER SPECIFIED ANXIETY DISORDERS (6) Arm paresthesia, left Code(s): R20.2 - PARESTHESIA OF SKIN (7) Atrial fibrillation with RVR Code(s): I48.91 - UNSPECIFIED ATRIAL FIBRILLATION (8) Atypical chest pain Code(s): R07.89 - OTHER CHEST PAIN (9) Back pain Code(s): M54.9 - DORSALGIA, UNSPECIFIED (10) Cerebrovascular accident (CVA) Code(s): I63.9 - CEREBRAL INFARCTION, UNSPECIFIED Qualifiers: CVA mechanism: unspecified Qualified Code(s): I63.9 - Cerebral infarction, unspecified (11) Cervical radicular pain Code(s): M54.12 - RADICULOPATHY, CERVICAL REGION (12) DVT prophylaxis Code(s): DSL9881 - (13) H/O acute myocardial infarction Code(s): I25.2 - OLD MYOCARDIAL INFARCTION (14) HLD (hyperlipidemia) Code(s): E78.5 - HYPERLIPIDEMIA, UNSPECIFIED (15) HTN (hypertension) Code(s): I10 - ESSENTIAL (PRIMARY) HYPERTENSION Qualifiers: Hypertension type: essential hypertension Qualified Code(s): I10 - Essential (primary) hypertension (16) Left knee sprain Code(s): S83.92XA - SPRAIN OF UNSPECIFIED SITE OF LEFT KNEE, INITIAL ENCOUNTER Qualifiers: Encounter type: initial encounter Involved ligament of knee: medial collateral ligament Qualified Code(s): S83.412A - Sprain of medial collateral ligament of left knee, initial encounter (17) Obesity Code(s): E66.9 - OBESITY, UNSPECIFIED (18) Rapid atrial fibrillation Code(s): I48.91 - UNSPECIFIED ATRIAL FIBRILLATION (19) Shoulder pain Code(s): M25.519 - PAIN IN UNSPECIFIED SHOULDER Qualifiers: Chronicity: unspecified Laterality: left Qualified Code(s): M25.512 - Pain in left shoulder (20) UTI (lower urinary tract infection) Code(s): N39.0 - URINARY TRACT INFECTION, SITE NOT SPECIFIED Assessment/Plan CP Palpitations AF RVR in NSR C. Cath mild non-obstructive disease 2012 HHD HTN paroxysmal Atrial Fibrilation 2011 r/o mi neg Plan telemetry cont AC restart home meds unclear significance of elevated BNP ?ARF ?KANA renal consult appersiated f/c ranexa since patien as per my records has nonobstructive CAD and no h/o stents
[2018-03-20 14:46] LABS: URINE APPEARANCE CLEAR; URINE BILIRUBIN NEGATIVE (<2.0 mg/dL); URINE COLOR AMBER; URINE GLUCOSE (UA) NEGATIVE (NEGATIVE); URINE KETONE NEGATIVE (NEGATIVE); URINE PROTEIN NEGATIVE (NEGATIVE); URINE UROBILINOGEN NEGATIVE mg/dL (0.2-1.0)
[2018-03-20 14:47] LABS: URINE LEUK ESTERASE NEGATIVE (NEGATIVE); URINE NITRITE NEGATIVE (NEGATIVE)
[2018-03-20] MEDS ORDERED: ACETAMINOPHEN 325 MG TABLET (FP) ONE (16:11)
[2018-03-20] MEDS: RIVAROXABAN 15 MG TABLET PO SCH ×2 (16:13→17:27)
[2018-03-20] MEDS: ATORVASTATIN CA 10 MG TABLET (FP) PO SCH (22:38)
[2018-03-21 06:39] LABS: BASO % 0.3 % (0-2.0); EOS % 0.7 % (0-4.5); HEMATOCRIT 33.9 % (32.4-45.2); HEMOGLOBIN 11.1 GM/dL (10.7-15.3); LYMPH % 30.7 % (8-40); MCH 26.3 pg (25.7-33.7); MCHC 32.8 g/dl (32.0-36.0); MEAN CELL VOLUME 80.3 fl (80-96); MEAN PLT VOLUME 8.8 fl (7.5-11.1); MONO % 4.5 % (3.8-10.2); NEUT % 63.8 % (42.8-82.8); PLATELET COUNT 236 K/MM3 (134-434); RBC 4.22 M/mm3 (3.60-5.2); RDW 14.1 % (11.6-15.6); WHITE BLOOD COUNT 7.9 K/mm3 (4.0-10.0)
[2018-03-21] MEDS: LEVOTHYROXINE NA 25 MCG TABLET (FP) PO SCH (06:40)
[2018-03-21 07:54] LABS: ALBUMIN 3.3 g/dl (3.4-5.0); ALK PHOS 73 U/L (45-117); ANION GAP 9 MMOL/L (8-16); BILIRUBIN,TOTAL 0.5 mg/dL (0.2-1); BLOOD UREA NITROGEN 41 mg/dL (7-18); CALCIUM 8.4 mg/dL (8.5-10.1); CHLORIDE 106 mmol/L (98-107); CO2 25 mmol/L (21-32); CREATININE 1.7 mg/dL (0.55-1.3); GLUCOSE,RANDOM 78 mg/dL (74-106); POTASSIUM 3.8 mmol/L (3.5-5.1); SGOT/AST 16 U/L (15-37); SGPT/ALT 30 U/L (13-61); SODIUM 140 mmol/L (136-145); TOT PROT 6.3 g/dl (6.4-8.2)
--- NOTE | 2018-03-21 08:25 | PN ---
Progress Note, Physician - Current Medication List Current Medications: Active Medications Albuterol/Ipratropium (Duoneb -) 1 amp NEB RTID [facility] Aspirin (Asa -) 81 mg PO DAILY [facility] Last Admin: 03/20/18 07:40 Dose: 81 mg Atorvastatin Calcium (Lipitor -) 10 mg PO HS [facility] Last Admin: 03/20/18 22:38 Dose: 10 mg Sodium Chloride (1/2 Normal Saline) 1,000 mls @ 50 mls/hr IV ASDIR [facility] Stop: 03/21/18 11:57 Last Admin: 03/20/18 12:12 Dose: 50 mls/hr Levothyroxine Sodium (Synthroid -) 25 mcg PO DAILY@0700 [facility] Last Admin: 03/21/18 06:40 Dose: 25 mcg Metoprolol Succinate (Toprol Xl -) 200 mg PO DAILY [facility] Last Admin: 03/20/18 07:40 Dose: 200 mg Pantoprazole Sodium (Protonix -) 20 mg PO DAILY [facility] Last Admin: 03/20/18 10:10 Dose: 20 mg Rivaroxaban (Xarelto -) 15 mg PO DAILY@1800 [facility] Last Admin: 03/20/18 17:27 Dose: Not Given - Objective Vital Signs: Vital Signs Temperature 97.9 F 03/21/18 07:50 Pulse Rate 48 L 03/21/18 07:50 Respiratory Rate 20 03/21/18 07:50 Blood Pressure 104/57 L 03/21/18 07:50 O2 Sat by Pulse Oximetry (%) 99 03/21/18 07:49 Cardiovascular: Yes: Bradycardia, S1, S2 Respiratory: Yes: Regular, CTA Bilaterally Gastrointestinal: Yes: Normal Bowel Sounds, Soft Labs: CBC, BMP 03/21/18 05:30 03/21/18 05:30 INR, PTT INR 1.02 (0.83-1.09) 03/19/18 01:16 Problem List - Problems (1) Chest pain Assessment/Plan: Atypical--atelectasis tele ct of chest--atelectasis cardio on board ekg and ce noted incentive spirometry Code(s): R07.9 - CHEST PAIN, UNSPECIFIED (2) A-fib Assessment/Plan: -on xarelto and cardizem -dig x 1 on 02/17 Code(s): I48.91 - UNSPECIFIED ATRIAL FIBRILLATION (3) CKD (chronic kidney disease) Assessment/Plan: Laboratory Tests Rising on ivf cr 1.7 monitor renal on board may need to adjust xarelto Code(s): N18.9 - CHRONIC KIDNEY DISEASE, UNSPECIFIED (4) Hypothyroidism Code(s): E03.9 - HYPOTHYROIDISM, UNSPECIFIED
[2018-03-21] MEDS: ASPIRIN 81 MG CHEWABLE TABLETS PO SCH (09:01)
[2018-03-21] MEDS: PANTOPRAZOLE 20 MG TABLET (FP) PO SCH (09:01)
--- NOTE | 2018-03-21 12:52 | PN ---
Progress Note, Physician Chief Complaint: Pt lying in bed; she c/o chest pain avani is very sensitvie to palpation of the central and left chest wall or if she moves her lef arm. History of Present Illness: The patient is a 67 year old female, with a significant PMH of CAD s/p DC, atrial fibrillation, and hypertension, stress MIBI negative 08/27/2015, who presents to the emergency department with 2 days of chest pain. The patient describes the chest pain as a throbbing sensation that is worsened with exertion. The patient states her chest pain feels similar to her myocardial infarction ? 1 year ago. Of note, the chest pain this time began last week; she has been pulling a heavy cart with food and bringing it to various churches to help feed poor people; she has had to get on and off buses while manuevering the cart. The patient also endorses progressively worsening dyspnea on exertion. The patient states she is only able to walk 4-5 blocks before feeling short of breath which she states is new for her. Stress MIBI 08/27/2015: negative for myocardial ischemia. - Current Medication List Current Medications: Active Medications Albuterol/Ipratropium (Duoneb -) 1 amp NEB RTID [facility] Aspirin (Asa -) 81 mg PO DAILY [facility] Last Admin: 03/21/18 09:01 Dose: 81 mg Atorvastatin Calcium (Lipitor -) 10 mg PO HS [facility] Last Admin: 03/20/18 22:38 Dose: 10 mg Levothyroxine Sodium (Synthroid -) 25 mcg PO DAILY@0700 [facility] Last Admin: 03/21/18 06:40 Dose: 25 mcg Metoprolol Succinate (Toprol Xl -) 100 mg PO DAILY [facility] Last Admin: 03/21/18 11:37 Dose: Not Given Pantoprazole Sodium (Protonix -) 20 mg PO DAILY [facility] Last Admin: 03/21/18 09:01 Dose: 20 mg Rivaroxaban (Xarelto -) 15 mg PO DAILY@1800 [facility] Last Admin: 03/20/18 17:27 Dose: Not Given - Objective Vital Signs: Vital Signs Temperature 97.9 F 03/21/18 07:50 Pulse Rate 48 L 03/21/18 07:50 Respiratory Rate 20 03/21/18 07:50 Blood Pressure 104/57 L 03/21/18 07:50 O2 Sat by Pulse Oximetry (%) 99 03/21/18 07:49 Constitutional: Yes: Anxious, Mild Distress Eyes: Yes: WNL HENT: Yes: WNL Neck: Yes: WNL Respiratory: Yes: WNL Gastrointestinal: Yes: Soft ...Rectal Exam: Yes: Deferred Genitourinary: No: Anuria Breast(s): Yes: WNL Musculoskeletal: Yes: Muscle Pain, Other Extremities: Yes: WNL Edema: No Peripheral Pulses WNL: Yes Integumentary: Yes: WNL Neurological: Yes: WNL Psychiatric: Yes: Other (anxiety) Labs: CBC, BMP 03/21/18 05:30 03/21/18 05:30 INR, PTT INR 1.02 (0.83-1.09) 03/19/18 01:16 - ....Imaging Other: Image Reviewed (telemetry: NSR; periods of marked sinus bradycardia) Problem List - Problems (1) Hypothyroidism Assessment/Plan: free T4 WNL On synthroid. Code(s): E03.9 - HYPOTHYROIDISM, UNSPECIFIED (2) Anxiety about health Code(s): F41.8 - OTHER SPECIFIED ANXIETY DISORDERS (3) Arm paresthesia, left Code(s): R20.2 - PARESTHESIA OF SKIN (4) Atrial fibrillation with RVR Assessment/Plan: Was in AF with RVR; now in normal sinus rhythm, with marked bradycardia. (Pt had received 200 mg metoprolol yesterday, as well as a dose of digoxin). Metoprolol ER reduced to 100 mg daily. On NOAC for anticoagulation. F/u EKG. Code(s): I48.91 - UNSPECIFIED ATRIAL FIBRILLATION (5) Atypical chest pain Assessment/Plan: Chest pain is reproduced by pt takng a deep breath, or with palpation of the central and left chest wall or moving the left arm/shoulder. 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 TNI < 0.02 repeatedly. EKG: AF with RVR initially; now NSR (f/u EKG today). Costochondritis is likely a principle cause of pt's pain. Start analgesic (was on Tylenol;; problematic giving ASA or nonASA NSAIDs, as pt is on rivaroxaban for AF). Stress MIBI negative for ischemia 08/2015; pt states she had a coronary angiogram a few years ago. records show a cath in 2012 tescribed as "mild nonobstructive CAD). Code(s): R07.89 - OTHER CHEST PAIN (6) HLD (hyperlipidemia) Code(s): E78.5 - HYPERLIPIDEMIA, UNSPECIFIED (7) HTN (hypertension) Code(s): I10 - ESSENTIAL (PRIMARY) HYPERTENSION Qualifiers: Hypertension type: essential hypertension Qualified Code(s): I10 - Essential (primary) hypertension (8) Obesity Code(s): E66.9 - OBESITY, UNSPECIFIED (9) Shoulder pain Code(s): M25.519 - PAIN IN UNSPECIFIED SHOULDER Qualifiers: Chronicity: unspecified Laterality: left Qualified Code(s): M25.512 - Pain in left shoulder (10) Renal dysfunction Code(s): N28.9 - DISORDER OF KIDNEY AND URETER, UNSPECIFIED
[2018-03-21] MEDS: ALBUTEROL SO4 2.5/IPRATROPIUM 0.5 INH SOL 3 ML VIAL.NEB. NEB SCH ×2 (15:00→20:13)
--- NOTE | 2018-03-21 15:54 | PN ---
Progress Note, Physician History of Present Illness: Pt seen and examined at bedside. She is awake and alert. She denies shortness of breath. - Current Medication List Current Medications: Active Medications Albuterol/Ipratropium (Duoneb -) 1 amp NEB RTID [facility] Aspirin (Asa -) 81 mg PO DAILY [facility] Last Admin: 03/21/18 09:01 Dose: 81 mg Atorvastatin Calcium (Lipitor -) 10 mg PO HS [facility] Last Admin: 03/20/18 22:38 Dose: 10 mg Levothyroxine Sodium (Synthroid -) 25 mcg PO DAILY@0700 [facility] Last Admin: 03/21/18 06:40 Dose: 25 mcg Metoprolol Succinate (Toprol Xl -) 100 mg PO DAILY [facility] Last Admin: 03/21/18 11:37 Dose: Not Given Pantoprazole Sodium (Protonix -) 20 mg PO DAILY [facility] Last Admin: 03/21/18 09:01 Dose: 20 mg Rivaroxaban (Xarelto -) 15 mg PO DAILY@1800 [facility] Last Admin: 03/20/18 17:27 Dose: Not Given - Objective Vital Signs: Vital Signs Temperature 98.5 F 03/21/18 14:50 Pulse Rate 52 L 03/21/18 14:50 Respiratory Rate 20 03/21/18 14:50 Blood Pressure 113/55 L 03/21/18 14:50 O2 Sat by Pulse Oximetry (%) 99 03/21/18 07:49 Constitutional: Yes: Calm Eyes: Yes: Conjunctiva Clear HENT: Yes: Atraumatic Cardiovascular: Yes: S1, S2 Respiratory: Yes: CTA Bilaterally Gastrointestinal: Yes: Normal Bowel Sounds, Soft Genitourinary: Yes: WNL Musculoskeletal: Yes: WNL Edema: No Neurological: Yes: Oriented Psychiatric: Yes: Oriented Labs: CBC, BMP 03/21/18 05:30 03/21/18 05:30 INR, PTT INR 1.02 (0.83-1.09) 03/19/18 01:16 Problem List - Problems (1) CKD (chronic kidney disease) Code(s): N18.9 - CHRONIC KIDNEY DISEASE, UNSPECIFIED Assessment/Plan Current Medications Generic Name Dose Route Start Last Admin Trade Name Freq PRN Reason Stop Dose Admin Albuterol/Ipratropium 1 amp 03/21/18 14:00 Duoneb - NEB RTID [facility] Aspirin 81 mg 03/19/18 10:00 03/21/18 09:01 Asa - PO 81 mg DAILY [facility] Administration Atorvastatin Calcium 10 mg 03/19/18 22:00 03/20/18 22:38 Lipitor - PO 10 mg HS [facility] Administration Levothyroxine Sodium 25 mcg 03/19/18 07:00 03/21/18 06:40 Synthroid - PO 25 mcg DAILY@0700 [facility] Administration Metoprolol Succinate 100 mg 03/21/18 10:45 03/21/18 11:37 Toprol Xl - PO Not Given DAILY [facility] Pantoprazole Sodium 20 mg 03/19/18 11:00 03/21/18 09:01 Protonix - PO 20 mg DAILY [facility] Administration Rivaroxaban 15 mg 03/19/18 18:00 03/20/18 17:27 Xarelto - PO Not Given DAILY@1800 [facility] Impression 1. KANA 2. a-fib 3. hx cva 4. hypothyroid 5. htn 6. CAD 7. microscopic hematuria 8. left nephrectomy Plan - repeat ua negative - renal ultrasound reviewed - repeat labs in am and monitor renal function - called for outpt labs to be faxed over - will follow Dr Grider
--- NOTE | 2018-03-21 16:19 | EKG ---
Test Reason : Blood Pressure : / mmHG Vent. Rate : 054 BPM Atrial Rate : 054 BPM P-R Int : 168 ms QRS Dur : 082 ms QT Int : 456 ms P-R-T Axes : -07 026 035 degrees QTc Int : 432 ms SINUS BRADYCARDIA POSSIBLE INFERIOR INFARCT (CITED ON OR BEFORE 25-JUL-2008) T WAVE ABNORMALITY, CONSIDER ANTERIOR ISCHEMIA ABNORMAL ECG WHEN COMPARED WITH ECG OF 20-MAR-2018 09:05, SINUS RHYTHM HAS REPLACED ATRIAL FIBRILLATION VENT. RATE HAS DECREASED BY 79 BPM NONSPECIFIC T WAVE ABNORMALITY, IMPROVED IN INFERIOR LEADS Confirmed by MD Brent, Michael ([id number]) on 03/21/2018 4:18:52 PM Referred By: Janette CALLE Confirmed By:Michael Kennedy MD
[2018-03-21] MEDS: RIVAROXABAN 15 MG TABLET PO SCH (17:30)
[2018-03-21] MEDS ORDERED: ACETAMINOPHEN 325 MG TABLET (FP) ONE (17:32)
[2018-03-21] MEDS: ATORVASTATIN CA 10 MG TABLET (FP) PO SCH (21:40)
[2018-03-22] MEDS: LEVOTHYROXINE NA 25 MCG TABLET (FP) PO SCH (06:27)
--- NOTE | 2018-03-22 08:29 | DS ---
Physical Examination Vital Signs: Vital Signs Temperature 97.8 F 03/22/18 02:00 Pulse Rate 60 03/22/18 06:14 Respiratory Rate 18 03/22/18 06:14 Blood Pressure 114/61 03/22/18 06:14 O2 Sat by Pulse Oximetry (%) 97 03/21/18 21:00 Labs: CBC, BMP 03/21/18 05:30 03/21/18 05:30 Discharge Summary Reason For Visit: ACUTE KIDNEY INJURY,HYPERNATREMIA,CHEST PAIN Current Active Problems CKD (chronic kidney disease) (Acute) Chest pain (Acute) Hypothyroidism (Acute) Renal dysfunction (Acute) Hospital Course: - Problems (1) Chest pain Assessment/Plan: Atypical--atelectasis tele ct of chest--atelectasis cardio on board ekg and ce noted incentive spirometry Code(s): R07.9 - CHEST PAIN, UNSPECIFIED (2) A-fib Assessment/Plan: -on xarelto and cardizem -dig x 1 on 02/17 Code(s): I48.91 - UNSPECIFIED ATRIAL FIBRILLATION (3) CKD (chronic kidney disease) Assessment/Plan: cr 1.7 labs pending monitor renal on board us noted adjusted xarelto Code(s): N18.9 - CHRONIC KIDNEY DISEASE, UNSPECIFIED (4) Hypothyroidism Code(s): E03.9 - HYPOTHYROIDISM, UNSPECIFIED (5) Lbp Assessment/Plan: -Chronic -PT dc planning pending labs and renal clearance Condition: Improved - Instructions Referrals: Nikita Jackman [Primary Care Provider] - - Home Medications Comprehensive Discharge Medication List: Ambulatory Orders Levothyroxine [Synthroid -] 25 mcg PO DAILY 02/02/14 Aspirin [ASA -] 81 mg PO DAILY 07/25/16 Pravastatin Sodium [Pravachol -] 40 mg PO HS 07/25/16 Rivaroxaban [Xarelto -] 20 mg PO DAILY #30 tablet 07/27/16 Omeprazole 40 mg PO DAILY 06/14/17 Ranolazine [Ranexa -] 500 mg PO BID #60 tab 06/18/17 Albuterol 2.5/Ipratropium 0.5 [Duoneb -] 1 amp NEB RTID #120 amp 03/22/18 Aspirin [ASA -] 81 mg PO DAILY tab.chew 03/22/18 Metoprolol Succinate [Toprol XL -] 100 mg PO DAILY #30 tab.sr.24h 03/22/18 Rivaroxaban [Xarelto -] 15 mg PO DAILY@1800 #30 tablet 03/22/18
[2018-03-22] MEDS: ALBUTEROL SO4 2.5/IPRATROPIUM 0.5 INH SOL 3 ML VIAL.NEB. NEB SCH ×2 (08:46→14:30)
[2018-03-22] MEDS: PANTOPRAZOLE 20 MG TABLET (FP) PO SCH (09:41)
[2018-03-22] MEDS: ASPIRIN 81 MG CHEWABLE TABLETS PO SCH (09:41)
--- NOTE | 2018-03-22 10:59 | PN ---
Progress Note, Physician History of Present Illness: This is a 67 y/o woman with a past medical history of Paroxysmal Afib (on Xarelto), non obstructive CAD Hypertension, Hyperlipidemia, TIA. Who presents to the ED via ambulance with chest pain and dizziness x 2 days. Patient is Maltese speaking, IDx line used #[id number]. Patient describes the chest pain as pressure to the midsternum radiating to her mid back. She reports the chest pain started while pulling her shopping cart filled with groceries from the store. Patient also reports having SOB after walking 2-3 blocks. Patient denies fever, cough, chills, SANDOVAL, palpitations, AP, N/V/D, constipation, dysuria. PMH C. Cath mild non-obstructive disease 2011 HHD HTN paroxysmal Atrial Fibrilation 2010 - Current Medication List Current Medications: Active Medications Albuterol/Ipratropium (Duoneb -) 1 amp NEB RTID [facility] Last Admin: 03/22/18 08:46 Dose: 1 amp Aspirin (Asa -) 81 mg PO DAILY [facility] Last Admin: 03/22/18 09:41 Dose: 81 mg Atorvastatin Calcium (Lipitor -) 10 mg PO HS [facility] Last Admin: 03/21/18 21:40 Dose: 10 mg Levothyroxine Sodium (Synthroid -) 25 mcg PO DAILY@0700 [facility] Last Admin: 03/22/18 06:27 Dose: 25 mcg Metoprolol Succinate (Toprol Xl -) 100 mg PO DAILY [facility] Last Admin: 03/22/18 09:41 Dose: 100 mg Pantoprazole Sodium (Protonix -) 20 mg PO DAILY [facility] Last Admin: 03/22/18 09:41 Dose: 20 mg Rivaroxaban (Xarelto -) 15 mg PO DAILY@1800 [facility] Last Admin: 03/21/18 17:30 Dose: 15 mg - Objective Vital Signs: Vital Signs Temperature 97.8 F 03/22/18 02:00 Pulse Rate 60 03/22/18 06:14 Respiratory Rate 18 03/22/18 06:14 Blood Pressure 114/61 03/22/18 06:14 O2 Sat by Pulse Oximetry (%) 97 03/21/18 21:00 Eyes: Yes: WNL, Conjunctiva Clear, EOM Intact HENT: Yes: WNL, Atraumatic, Normocephalic Neck: Yes: WNL, Supple, Trachea Midline Cardiovascular: Yes: WNL, Regular Rate and Rhythm Respiratory: Yes: WNL, Regular, CTA Bilaterally Gastrointestinal: Yes: WNL, Normal Bowel Sounds Genitourinary: Yes: WNL Musculoskeletal: Yes: WNL Extremities: Yes: WNL Edema: No Integumentary: Yes: WNL Neurological: Yes: WNL, Alert, Oriented ...Motor Strength: WNL Psychiatric: Yes: WNL Labs: CBC, BMP 03/21/18 05:30 03/21/18 05:30 INR, PTT INR 1.02 (0.83-1.09) 03/19/18 01:16 Problem List - Problems (1) CKD (chronic kidney disease) Code(s): N18.9 - CHRONIC KIDNEY DISEASE, UNSPECIFIED (2) Chest pain Code(s): R07.9 - CHEST PAIN, UNSPECIFIED (3) Hypothyroidism Code(s): E03.9 - HYPOTHYROIDISM, UNSPECIFIED (4) A-fib Code(s): I48.91 - UNSPECIFIED ATRIAL FIBRILLATION (5) Anxiety about health Code(s): F41.8 - OTHER SPECIFIED ANXIETY DISORDERS (6) Arm paresthesia, left Code(s): R20.2 - PARESTHESIA OF SKIN (7) Atrial fibrillation with RVR Code(s): I48.91 - UNSPECIFIED ATRIAL FIBRILLATION (8) Atypical chest pain Code(s): R07.89 - OTHER CHEST PAIN (9) Back pain Code(s): M54.9 - DORSALGIA, UNSPECIFIED (10) Cerebrovascular accident (CVA) Code(s): I63.9 - CEREBRAL INFARCTION, UNSPECIFIED Qualifiers: CVA mechanism: unspecified Qualified Code(s): I63.9 - Cerebral infarction, unspecified (11) Cervical radicular pain Code(s): M54.12 - RADICULOPATHY, CERVICAL REGION (12) DVT prophylaxis Code(s): [id number] - (13) H/O acute myocardial infarction Code(s): I25.2 - OLD MYOCARDIAL INFARCTION (14) HLD (hyperlipidemia) Code(s): E78.5 - HYPERLIPIDEMIA, UNSPECIFIED (15) HTN (hypertension) Code(s): I10 - ESSENTIAL (PRIMARY) HYPERTENSION Qualifiers: Hypertension type: essential hypertension Qualified Code(s): I10 - Essential (primary) hypertension (16) Left knee sprain Code(s): S83.92XA - SPRAIN OF UNSPECIFIED SITE OF LEFT KNEE, INITIAL ENCOUNTER Qualifiers: Encounter type: initial encounter Involved ligament of knee: medial collateral ligament Qualified Code(s): S83.412A - Sprain of medial collateral ligament of left knee, initial encounter (17) Obesity Code(s): E66.9 - OBESITY, UNSPECIFIED (18) Rapid atrial fibrillation Code(s): I48.91 - UNSPECIFIED ATRIAL FIBRILLATION (19) Shoulder pain Code(s): M25.519 - PAIN IN UNSPECIFIED SHOULDER Qualifiers: Chronicity: unspecified Laterality: left Qualified Code(s): M25.512 - Pain in left shoulder (20) UTI (lower urinary tract infection) Code(s): N39.0 - URINARY TRACT INFECTION, SITE NOT SPECIFIED Assessment/Plan Problems (1) Hypothyroidism Assessment/Plan: free T4 WNL On synthroid. Code(s): E03.9 - HYPOTHYROIDISM, UNSPECIFIED (2) Anxiety about health Code(s): F41.8 - OTHER SPECIFIED ANXIETY DISORDERS (3) Arm paresthesia, left Code(s): R20.2 - PARESTHESIA OF SKIN (4) Atrial fibrillation with RVR Assessment/Plan: Was in AF with RVR; now in normal sinus rhythm, with marked bradycardia. (Pt had received 200 mg metoprolol yesterday, as well as a dose of digoxin). Metoprolol ER reduced to 100 mg daily. On NOAC for anticoagulation. F/u EKG. Code(s): I48.91 - UNSPECIFIED ATRIAL FIBRILLATION (5) Atypical chest pain Assessment/Plan: Chest pain is reproduced by pt takng a deep breath, or with palpation of the central and left chest wall or moving the left arm/shoulder. 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 TNI < 0.02 repeatedly. EKG: AF with RVR initially; now NSR (f/u EKG today). Costochondritis is likely a principle cause of pt's pain. Start analgesic (was on Tylenol;; problematic giving ASA or nonASA NSAIDs, as pt is on rivaroxaban for AF). Stress MIBI negative for ischemia 08/2015; pt states she had a coronary angiogram a few years ago. records show a cath in 2012 tescribed as "mild nonobstructive CAD). Code(s): R07.89 - OTHER CHEST PAIN (6) HLD (hyperlipidemia) Code(s): E78.5 - HYPERLIPIDEMIA, UNSPECIFIED (7) HTN (hypertension) Code(s): I10 - ESSENTIAL (PRIMARY) HYPERTENSION Qualifiers: Hypertension type: essential hypertension Qualified Code(s): I10 - Essential (primary) hypertension (8) Obesity Code(s): E66.9 - OBESITY, UNSPECIFIED (9) Shoulder pain Code(s): M25.519 - PAIN IN UNSPECIFIED SHOULDER Qualifiers: Chronicity: unspecified Laterality: left Qualified Code(s): M25.512 - Pain in left shoulder (10) Renal dysfunction Code(s): N28.9 - DISORDER OF KIDNEY AND URETER, UNSPECIFIED
[2018-03-22 12:20] LABS: ANION GAP 8 MMOL/L (8-16); BLOOD UREA NITROGEN 33 mg/dL (7-18); CALCIUM 8.6 mg/dL (8.5-10.1); CHLORIDE 108 mmol/L (98-107); CO2 25 mmol/L (21-32); CREATININE 1.4 mg/dL (0.55-1.3); GLUCOSE,RANDOM 77 mg/dL (74-106); POTASSIUM 3.6 mmol/L (3.5-5.1); SODIUM 141 mmol/L (136-145)
--- NOTE | 2018-03-22 12:26 | PN ---
Progress Note, Physician History of Present Illness: Pt seen and examined at bedside. She is awake and alert. She denies chest pain or shortness of breath. - Current Medication List Current Medications: Active Medications Albuterol/Ipratropium (Duoneb -) 1 amp NEB RTID [facility] Last Admin: 03/22/18 08:46 Dose: 1 amp Aspirin (Asa -) 81 mg PO DAILY [facility] Last Admin: 03/22/18 09:41 Dose: 81 mg Atorvastatin Calcium (Lipitor -) 10 mg PO HS [facility] Last Admin: 03/21/18 21:40 Dose: 10 mg Levothyroxine Sodium (Synthroid -) 25 mcg PO DAILY@0700 [facility] Last Admin: 03/22/18 06:27 Dose: 25 mcg Metoprolol Succinate (Toprol Xl -) 100 mg PO DAILY [facility] Last Admin: 03/22/18 09:41 Dose: 100 mg Pantoprazole Sodium (Protonix -) 20 mg PO DAILY [facility] Last Admin: 03/22/18 09:41 Dose: 20 mg Rivaroxaban (Xarelto -) 15 mg PO DAILY@1800 [facility] Last Admin: 03/21/18 17:30 Dose: 15 mg - Objective Vital Signs: Vital Signs Temperature 97.8 F 03/22/18 02:00 Pulse Rate 60 03/22/18 06:14 Respiratory Rate 18 03/22/18 06:14 Blood Pressure 114/61 03/22/18 06:14 O2 Sat by Pulse Oximetry (%) 97 03/21/18 21:00 Constitutional: Yes: Calm Eyes: Yes: Conjunctiva Clear HENT: Yes: Atraumatic Neck: Yes: Supple Cardiovascular: Yes: S1, S2 Respiratory: Yes: CTA Bilaterally Gastrointestinal: Yes: Normal Bowel Sounds, Soft Genitourinary: Yes: WNL Edema: No Neurological: Yes: Oriented Psychiatric: Yes: Oriented Labs: CBC, BMP 03/21/18 05:30 INR, PTT INR 1.02 (0.83-1.09) 03/19/18 01:16 Problem List - Problems (1) CKD (chronic kidney disease) Code(s): N18.9 - CHRONIC KIDNEY DISEASE, UNSPECIFIED Assessment/Plan Current Medications Generic Name Dose Route Start Last Admin Trade Name Freq PRN Reason Stop Dose Admin Albuterol/Ipratropium 1 amp 03/21/18 14:00 03/22/18 08:46 Duoneb - NEB 1 amp RTID ARVIND Administration Aspirin 81 mg 03/19/18 10:00 03/22/18 09:41 Asa - PO 81 mg DAILY ARVIND Administration Atorvastatin Calcium 10 mg 03/19/18 22:00 03/21/18 21:40 Lipitor - PO 10 mg HS ARVIND Administration Levothyroxine Sodium 25 mcg 03/19/18 07:00 03/22/18 06:27 Synthroid - PO 25 mcg DAILY@0700 ARVIND Administration Metoprolol Succinate 100 mg 03/21/18 10:45 03/22/18 09:41 Toprol Xl - PO 100 mg DAILY ARVIND Administration Pantoprazole Sodium 20 mg 03/19/18 11:00 03/22/18 09:41 Protonix - PO 20 mg DAILY ARVIND Administration Rivaroxaban 15 mg 03/19/18 18:00 03/21/18 17:30 Xarelto - PO 15 mg DAILY@1800 ARVIND Administration Impression 1. KANA 2. a-fib 3. hx cva 4. hypothyroid 5. htn 6. CAD 7. microscopic hematuria 8. 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 nephrolithiasis Plan - follow up labs - will need outpt follow up as pt has CKD - pt also has a history of nephrolithiasis - unclear if pt had a nephrectomy or was born with a congenital small kidney - called for outpt labs to be faxed over - will follow Dr Grider
[2018-03-22 15:14] VITALS: BP 119/69; PULSE 70; TEMP 98
== END 2018-03-22 14:30 | disposition home or self-care (01) | DRG 683 ==
LOC: JER 00:17 → JERBED 02:27 → J4W 15:16 → OBSVTOIN 03-20 18:12
PROVIDERS: ADMIT Internal Medicine; ATTEND Family Medicine
DX: N17.9 Acute kidney failure, unspecified (principal); E87.0 Hyperosmolality and hypernatremia; J98.11 Atelectasis; I25.10 Atherosclerotic heart disease of native coronary artery without angina pectoris; I25.2 Old myocardial infarction; E78.5 Hyperlipidemia, unspecified; I48.0 Paroxysmal atrial fibrillation; E03.9 Hypothyroidism, unspecified; R31.29 Other microscopic hematuria; R20.2 Paresthesia of skin; M94.0 Chondrocostal junction syndrome [Tietze]; R07.89 Other chest pain; M25.512 Pain in left shoulder; F41.8 Other specified anxiety disorders; E66.9 Obesity, unspecified; Z68.31 Body mass index [BMI] 31.0-31.9, adult; I12.9 Hypertensive chronic kidney disease with stage 1 through stage 4 chronic kidney disease, or unspecified chronic kidney disease; N18.9 Chronic kidney disease, unspecified; N20.0 Calculus of kidney; Z90.5 Acquired absence of kidney; Z95.5 Presence of coronary angioplasty implant and graft; Z86.73 Personal history of transient ischemic attack (TIA), and cerebral infarction without residual deficits
CPT/HCPCS: 36415; 71045-TC-FY; 71250-TC; 76775-TC; 80048; 80053; 81003; 81015; 82436; 82550; 82570; 83735; 83880; 84100; 84133; 84300; 84439; 84443; 84484; 85025; 85610; 85730; 87086; 93005; 93010; 94010; 94640; 97116-GP; 97162-GP; 99285-25; G0378; J0131; J7030

== ENCOUNTER 2022-08-01 09:55 | Emergency (ER) | payer OTHER ==
[2022-08-01 10:02] VITALS: BMI 34.4
[2022-08-01 12:16] LABS: BASO % 0.3 % (0-2.0); EOS % 1.6 % (0-4.5); HEMATOCRIT 36.6 % (32.4-45.2); HEMOGLOBIN 12.4 GM/dL (10.7-15.3); LYMPH % 28.5 % (8-40); MCH 26.8 pg (25.7-33.7); MEAN CELL VOLUME 78.9 fl (80-96); MEAN PLT VOLUME 8.2 fl (7.5-11.1); MONO % 6.5 % (3.8-10.2); NEUT % 63.1 % (42.8-82.8); PLATELET COUNT 307 10^3/uL (134-434); RBC 4.64 M/mm3 (3.60-5.2); RDW 13.8 % (11.6-15.6); WHITE BLOOD COUNT 7.3 K/mm3 (4.0-10.0)
[2022-08-01 12:25] LABS: EPI CELLS 34 /uL (0-25.1); HYALINE CASTS 1 /uL (0-3.1); PH,URINE 5.5 (5.0-8.0); URINE APPEARANCE CLEAR; URINE BACTERIA 3 /uL (0-1359); URINE BILIRUBIN NEGATIVE (NEGATIVE); URINE COLOR YELLOW; URINE GLUCOSE (UA) NEGATIVE (NEGATIVE); URINE KETONE TRACE (NEGATIVE); URINE LEUK ESTERASE NEGATIVE (NEGATIVE); URINE NITRITE NEGATIVE (NEGATIVE); URINE PROTEIN NEGATIVE (NEGATIVE); URINE RBC 59 /uL (0-23.9); URINE UROBILINOGEN 0.2 mg/dL (0.2-1.0); URINE WBC 4 /uL (0-25.8)
[2022-08-01 12:35] LABS: CALCIUM 9.1 mg/dL (8.5-10.1)
[2022-08-01 12:37] LABS: ALBUMIN 3.4 g/dl (3.4-5.0); BLOOD UREA NITROGEN 31.8 mg/dL (7-18)
[2022-08-01 12:39] LABS: CREATININE 1.4 mg/dL (0.55-1.3)
[2022-08-01 12:40] LABS: BILIRUBIN,TOTAL 0.4 mg/dL (0.2-1)
[2022-08-01] MEDS ORDERED: KETOROLAC TROMETHAMINE 15 MG/ML VIAL IVPUSH ONE (12:40)
[2022-08-01] MEDS ORDERED: KETOROLAC TROMETHAMINE 15 MG/ML VIAL ONE (12:46)
[2022-08-01 13:30] VITALS: BP 144/85; PULSE 58; RESP 16; TEMP 98
== END 2022-08-01 13:50 | disposition home or self-care (01) ==
LOC: JER 09:55
PROC: 3E0333Z Introduction of Anti-inflammatory into Peripheral Vein, Percutaneous Approach (ICD-10-PCS; principal; 2022-08-01)
DX: N39.0 Urinary tract infection, site not specified (principal)
CPT/HCPCS: 36415; 74176-TC; 80053; 81003; 85025; 87086; 96374; 99284-25

== ENCOUNTER 2022-12-01 17:02 | Observation (INO) | payer OTHER ==
[2022-12-01 17:39] VITALS: BMI 31.1
[2022-12-01] MEDS ORDERED: ACETAMINOPHEN 1000 MG/100 ML BAG IVPB ONE (18:25)
[2022-12-01] MEDS ORDERED: SODIUM CHLORIDE 0.9% 1000 ML INFUS.BAG IV ONE (19:16)
[2022-12-01] MEDS ORDERED: ACETAMINOPHEN INJECTION 100 ML IVPB ONE (19:21)
[2022-12-01 19:52] LABS: EPI CELLS 10 /uL (0-25.1); HYALINE CASTS 0 /uL (0-3.1); PH,URINE 6.5 (5.0-8.0); URINE APPEARANCE CLEAR; URINE BACTERIA 26 /uL (0-1359); URINE BILIRUBIN NEGATIVE (NEGATIVE); URINE COLOR YELLOW; URINE GLUCOSE (UA) NEGATIVE (NEGATIVE); URINE KETONE NEGATIVE (NEGATIVE); URINE LEUK ESTERASE NEGATIVE (NEGATIVE); URINE NITRITE NEGATIVE (NEGATIVE); URINE PROTEIN NEGATIVE (NEGATIVE); URINE RBC 160 /uL (0-23.9); URINE WBC 6 /uL (0-25.8)
[2022-12-01 19:59] LABS: BASO % 0.3 % (0-2.0); EOS % 2.1 % (0-4.5); HEMATOCRIT 37.8 % (32.4-45.2); HEMOGLOBIN 12.6 GM/dL (10.7-15.3); LYMPH % 34.1 % (8-40); MCH 26.6 pg (25.7-33.7); MCHC 33.4 g/dl (32.0-36.0); MEAN CELL VOLUME 79.7 fl (80-96); MEAN PLT VOLUME 8.4 fl (7.5-11.1); MONO % 6.7 % (3.8-10.2); NEUT % 56.8 % (42.8-82.8); PLATELET COUNT 310 10^3/uL (134-434); RBC 4.74 M/mm3 (3.60-5.2); RDW 14.4 % (11.6-15.6)
[2022-12-01 20:06] LABS: INR 1.2 (0.83-1.09); PROTHROMBIN TIME (PATIENT) 13.9 SEC (9.7-13.0)
[2022-12-01 20:08] LABS: ACTIVATED PTT 44.5 SECONDS (25.2-36.5)
[2022-12-01 20:21] LABS: POTASSIUM 4.7 mmol/L (3.5-5.1)
[2022-12-01 20:23] LABS: CALCIUM 8.7 mg/dL (8.5-10.1)
[2022-12-01 20:24] LABS: ALBUMIN 3.6 g/dl (3.4-5.0); BLOOD UREA NITROGEN 24.9 mg/dL (7-18)
[2022-12-01 20:27] LABS: CREATININE 1.3 mg/dL (0.55-1.3)
[2022-12-01 20:29] LABS: BILIRUBIN,TOTAL 0.2 mg/dL (0.2-1); TOT PROT 7.1 g/dl (6.4-8.2)
[2022-12-02] MEDS ORDERED: ACETAMINOPHEN 1000 MG/100 ML BAG IVPB PRN (01:00)
[2022-12-02 01:49] LABS: MAGNESIUM 2.1 mg/dL (1.8-2.4)
[2022-12-02 01:53] LABS: PHOSPHOROUS 3.7 mg/dL (2.5-4.9)
[2022-12-02 07:03] LABS: BASO % 0.4 % (0-2.0); EOS % 2.3 % (0-4.5); HEMOGLOBIN 12.8 GM/dL (10.7-15.3); LYMPH % 38.9 % (8-40); MCH 25.9 pg (25.7-33.7); MEAN PLT VOLUME 8.7 fl (7.5-11.1); MONO % 6.5 % (3.8-10.2); NEUT % 51.9 % (42.8-82.8); PLATELET COUNT 292 10^3/uL (134-434); RBC 4.94 M/mm3 (3.60-5.2); RDW 14.3 % (11.6-15.6); WHITE BLOOD COUNT 7.1 K/mm3 (4.0-10.0)
[2022-12-02 07:25] LABS: POTASSIUM 4.2 mmol/L (3.5-5.1)
[2022-12-02 07:28] LABS: CALCIUM 8.8 mg/dL (8.5-10.1)
[2022-12-02 07:29] LABS: BLOOD UREA NITROGEN 20.6 mg/dL (7-18)
[2022-12-02 07:32] LABS: CREATININE 1.1 mg/dL (0.55-1.3)
[2022-12-02] MEDS: RIVAROXABAN 15 MG TABLET PO SCH (17:57)
[2022-12-03] MEDS ORDERED: ACETAMINOPHEN 325 MG TABLET (FP) PO PRN (01:00)
[2022-12-03] MEDS: LEVOTHYROXINE NA 25 MCG TABLET (FP) PO SCH (06:04)
[2022-12-03] MEDS: RIVAROXABAN 15 MG TABLET PO SCH (17:45)
[2022-12-03] MEDS: DOCUSATE SODIUM 100 MG CAPSULE (FP) PO PRN (21:10)
[2022-12-03] MEDS: MELATONIN 5 MG TABLETS PO PRN (21:10)
[2022-12-04] MEDS: LEVOTHYROXINE NA 25 MCG TABLET (FP) PO SCH (05:59)
[2022-12-04] MEDS: RIVAROXABAN 15 MG TABLET PO SCH (17:26)
[2022-12-04] MEDS: MELATONIN 5 MG TABLETS PO PRN (21:53)
[2022-12-04] MEDS: DOCUSATE SODIUM 100 MG CAPSULE (FP) PO PRN (21:53)
[2022-12-05] MEDS: LEVOTHYROXINE NA 25 MCG TABLET (FP) PO SCH (06:40)
[2022-12-05] MEDS: RIVAROXABAN 15 MG TABLET PO SCH (18:11)
[2022-12-05] MEDS: MELATONIN 5 MG TABLETS PO PRN (21:39)
[2022-12-06] MEDS: LEVOTHYROXINE NA 25 MCG TABLET (FP) PO SCH (06:36)
[2022-12-06] MEDS ORDERED: REGADENOSON 0.4 MG/5 ML PRE-FILLED SYRINGE IVPUSH ONE ×2 (10:03→10:15)
[2022-12-06 14:32] VITALS: BP 109/68; PULSE 88; RESP 18; TEMP 97.5
== END 2022-12-06 19:45 | disposition home or self-care (01) ==
LOC: JER 17:02 → JERBED 22:08 → J4W 12-02 01:23
PROVIDERS: ADMIT Internal Medicine; ATTEND Family Medicine
PROC: 3E033NZ Introduction of Analgesics, Hypnotics, Sedatives into Peripheral Vein, Percutaneous Approach (ICD-10-PCS; principal; 2022-12-01)
PROC: 3E033GC Introduction of Other Therapeutic Substance into Peripheral Vein, Percutaneous Approach (ICD-10-PCS; 2022-12-01)
PROC: 3E0337Z Introduction of Electrolytic and Water Balance Substance into Peripheral Vein, Percutaneous Approach (ICD-10-PCS; 2022-12-01)
DX: I48.91 Unspecified atrial fibrillation (principal); I10 Essential (primary) hypertension; N39.41 Urge incontinence; E78.5 Hyperlipidemia, unspecified; F41.9 Anxiety disorder, unspecified; I25.2 Old myocardial infarction; N20.0 Calculus of kidney; E03.9 Hypothyroidism, unspecified; Z86.73 Personal history of transient ischemic attack (TIA), and cerebral infarction without residual deficits; Z90.49 Acquired absence of other specified parts of digestive tract; R20.2 Paresthesia of skin; M54.9 Dorsalgia, unspecified
CPT/HCPCS: 0241U-QW; 36415; 71045-TC-FY; 78452-TC; 80048; 80053; 80061; 81003; 83036; 83735; 84100; 84439; 84443; 84484; 85025; 85610; 85730; 87086; 93005; 93010; 93017; 93306-TC; 96374; 96375; 99285-25; A9502; G0378; J2785

== ENCOUNTER 2023-04-04 11:22 | Emergency (ER) | payer OTHER ==
[2023-04-04 11:46] VITALS: BP 123/76; PULSE 76; RESP 18; TEMP 98.2; BMI 34.0
[2023-04-04] MEDS ORDERED: ACETAMINOPHEN 1000 MG/100 ML BAG IVPB ONE (12:47)
[2023-04-04] MEDS ORDERED: FAMOTIDINE 20 MG/50 ML IVPB 20 MG/50 ML MG IVPB ONE (12:47)
[2023-04-04] MEDS ORDERED: FAMOTIDINE 10 MG/ML VIAL IVPB ONE (12:55)
[2023-04-04] MEDS ORDERED: ACETAMINOPHEN INJECTION 100 ML IVPB ONE (12:55)
[2023-04-04 13:16] LABS: BASO % 0.2 % (0-2.0); EOS % 1.2 % (0-4.5); HEMATOCRIT 36.3 % (32.4-45.2); HEMOGLOBIN 12.3 GM/dL (10.7-15.3); LYMPH % 27.8 % (8-40); MCH 26.7 pg (25.7-33.7); MCHC 33.8 g/dl (32.0-36.0); MEAN PLT VOLUME 8.1 fl (7.5-11.1); MONO % 5.9 % (3.8-10.2); NEUT % 64.9 % (42.8-82.8); PLATELET COUNT 304 10^3/uL (134-434); WHITE BLOOD COUNT 8.4 K/mm3 (4.0-10.0)
[2023-04-04 13:24] LABS: INR 1.73 (0.83-1.09)
[2023-04-04 13:26] LABS: ACTIVATED PTT 46.8 SECONDS (25.2-36.5)
[2023-04-04 13:45] LABS: POTASSIUM 3.7 mmol/L (3.5-5.1)
[2023-04-04 13:47] LABS: BLOOD UREA NITROGEN 27.2 mg/dL (7-18); CALCIUM 8.7 mg/dL (8.5-10.1)
[2023-04-04 13:48] LABS: ALBUMIN 3.4 g/dl (3.4-5.0)
[2023-04-04 13:50] LABS: CREATININE 1.2 mg/dL (0.55-1.3)
[2023-04-04 13:52] LABS: BILIRUBIN,TOTAL 0.4 mg/dL (0.2-1); TOT PROT 6.9 g/dl (6.4-8.2)
[2023-04-04 13:55] LABS: N-TERMINAL BNP 133.8 pg/ml (5-125)
== END 2023-04-04 17:58 | disposition home or self-care (01) ==
LOC: JER 11:22
PROC: 3E033GC Introduction of Other Therapeutic Substance into Peripheral Vein, Percutaneous Approach (ICD-10-PCS; principal; 2023-04-04)
PROC: 3E033NZ Introduction of Analgesics, Hypnotics, Sedatives into Peripheral Vein, Percutaneous Approach (ICD-10-PCS; 2023-04-04)
DX: R07.9 Chest pain, unspecified (principal); R51.9 Headache, unspecified; R10.13 Epigastric pain; R10.12 Left upper quadrant pain; Z20.822 Contact with and (suspected) exposure to COVID-19
CPT/HCPCS: 0241U-QW; 36415; 71045-TC-FY; 80053; 83690; 83880; 84439; 84443; 84484; 85025; 85610; 85730; 86850; 86900; 86901; 93005; 93010; 96365; 96375; 99285-25

== ENCOUNTER 2024-04-12 11:53 | Observation (INO) | payer OTHER ==
[2024-04-12 13:50] LABS: BASO % 0.4 % (0-2.0); EOS % 1.1 % (0-4.5); HEMATOCRIT 38.3 % (32.4-45.2); HEMOGLOBIN 12.5 GM/dL (10.7-15.3); LYMPH % 26.3 % (8-40); MCH 26.8 pg (25.7-33.7); MCHC 32.7 g/dl (32.0-36.0); MEAN PLT VOLUME 8.1 fl (7.5-11.1); MONO % 10.3 % (3.8-10.2); NEUT % 61.9 % (42.8-82.8); PLATELET COUNT 253 10^3/uL (134-434); RBC 4.67 M/mm3 (3.60-5.2); RDW 14.4 % (11.6-15.6); WHITE BLOOD COUNT 5.4 K/mm3 (4.0-10.0)
[2024-04-12 13:58] LABS: INR 1.64 (0.83-1.09); PROTHROMBIN TIME (PATIENT) 18.3 SEC (9.7-13.0)
[2024-04-12 14:00] LABS: ACTIVATED PTT 50.6 SECONDS (25.2-36.5)
[2024-04-12 14:09] LABS: POTASSIUM 3.5 mmol/L (3.5-5.1)
[2024-04-12 14:11] LABS: CALCIUM 8.9 mg/dL (8.5-10.1)
[2024-04-12 14:12] LABS: BLOOD UREA NITROGEN 32.7 mg/dL (7-18)
[2024-04-12 14:15] LABS: CREATININE 1.3 mg/dL (0.55-1.3)
[2024-04-12 14:16] LABS: BILIRUBIN,TOTAL 0.4 mg/dL (0.2-1); TOT PROT 6.9 g/dl (6.4-8.2)
[2024-04-12 14:32] LABS: ALBUMIN 3.5 g/dl (3.4-5.0)
[2024-04-12 21:19] VITALS: BMI 37.4
[2024-04-12] MEDS ORDERED: ALBUTEROL SO4 HFA INHALER IH PRN (22:00)
[2024-04-13] MEDS: MELATONIN 5 MG TABLETS PO PRN (00:07)
[2024-04-13] MEDS: ACETAMINOPHEN 325 MG TABLET (FP) PO ONE (00:07)
[2024-04-13 05:56] VITALS: RESP 18
[2024-04-13 08:53] LABS: BASO % 0.6 % (0-2.0); HEMATOCRIT 40.1 % (32.4-45.2); HEMOGLOBIN 13.2 GM/dL (10.7-15.3); LYMPH % 41.5 % (8-40); MCHC 32.9 g/dl (32.0-36.0); MEAN PLT VOLUME 8.6 fl (7.5-11.1); MONO % 10.3 % (3.8-10.2); NEUT % 46.6 % (42.8-82.8); PLATELET COUNT 264 10^3/uL (134-434); RBC 4.89 M/mm3 (3.60-5.2); RDW 14.7 % (11.6-15.6); WHITE BLOOD COUNT 5.8 K/mm3 (4.0-10.0)
[2024-04-13 09:11] LABS: POTASSIUM 3.7 mmol/L (3.5-5.1)
[2024-04-13 09:14] LABS: CALCIUM 9.5 mg/dL (8.5-10.1)
[2024-04-13 09:15] LABS: ALBUMIN 3.9 g/dl (3.4-5.0)
[2024-04-13 09:17] LABS: CREATININE 1.4 mg/dL (0.55-1.3)
[2024-04-13 09:19] LABS: BILIRUBIN,TOTAL 0.5 mg/dL (0.2-1); TOT PROT 7.4 g/dl (6.4-8.2)
[2024-04-13] MEDS: LEVOTHYROXINE NA 25 MCG TABLET (FP) PO SCH (09:41)
[2024-04-13 10:02] LABS: BLOOD UREA NITROGEN 31.5 mg/dL (7-18)
[2024-04-13 14:52] VITALS: BP 121/75; PULSE 84; TEMP 98.8
[2024-04-13] MEDS ORDERED: RIVAROXABAN 15 MG TABLET PO SCH (18:00)
== END 2024-04-13 16:59 | disposition home or self-care (01) ==
LOC: JER 11:53 → JERBED 16:06 → J4S 20:56
PROVIDERS: ADMIT Internal Medicine; ATTEND Internal Medicine
DX: I48.91 Unspecified atrial fibrillation (principal); F41.9 Anxiety disorder, unspecified; I12.9 Hypertensive chronic kidney disease with stage 1 through stage 4 chronic kidney disease, or unspecified chronic kidney disease; N18.9 Chronic kidney disease, unspecified; E03.9 Hypothyroidism, unspecified; E78.5 Hyperlipidemia, unspecified; E66.9 Obesity, unspecified; I25.2 Old myocardial infarction; Z86.73 Personal history of transient ischemic attack (TIA), and cerebral infarction without residual deficits; Z90.49 Acquired absence of other specified parts of digestive tract
CPT/HCPCS: 0241U-QW; 36415; 71046-TC-FY; 80053; 80061; 83036; 84439; 84443; 84484; 85025; 85610; 85730; 93005; 93010; 93306-TC; 93970-TC; 99285-25; G0378

== ENCOUNTER 2025-02-27 12:20 | Inpatient (IN) | payer OTHER ==
[2025-02-27] MEDS ORDERED: NITROGLYCERIN 2% OINTMENT - 1GM PACKET TD ONE (13:58)
[2025-02-27] MEDS ORDERED: ASPIRIN 325 MG TABLET ONE (13:59)
[2025-02-27] MEDS: ASPIRIN 81 MG CHEWABLE TABLETS PO ONE (14:05)
[2025-02-27] MEDS: NITROGLYCERIN 2% OINTMENT - 1GM PACKET TD ONE (14:05)
[2025-02-27 14:08] LABS: ABSOLUTE IMMATURE GRANULOCYTES 0.02 x10^3/uL (0.0-0.031); BASOPHILS # 0.02 x10^3/uL (0.01-0.08); EOSINOPHIL % 1.5 % (0.7-5.8); EOSINOPHILS # 0.11 x10^3/uL (0.04-0.36); MCHC 31.8 g/dl (32.2-35.5); MEAN CELL VOLUME 83.5 fl (79.4-94.8); MEAN PLT VOLUME 9.7 fl (9.4-12.3); MONOCYTE # 0.47 x10^3/uL (0.24-0.86); MONOCYTE % 6.3 % (4.7-12.5); RDW 14.4 % (12.4-16.6)
[2025-02-27 14:18] LABS: INR 1.5 (0.83-1.09); PROTHROMBIN TIME (PATIENT) 16.5 SEC (9.7-13.0)
[2025-02-27 14:20] LABS: ACTIVATED PTT 43.3 SECONDS (25.2-36.5); EPI CELLS 4 /uL (0-25.1); HYALINE CASTS 0 /uL (0-3.1); URINE APPEARANCE CLEAR; URINE BACTERIA 7 /uL (0-1359); URINE BILIRUBIN NEGATIVE (NEGATIVE); URINE COLOR YELLOW; URINE GLUCOSE (UA) NEGATIVE (NEGATIVE); URINE KETONE NEGATIVE (NEGATIVE); URINE LEUK ESTERASE NEGATIVE (NEGATIVE); URINE NITRITE NEGATIVE (NEGATIVE); URINE PROTEIN NEGATIVE (NEGATIVE); URINE RBC 53 /uL (0-23.9); URINE UROBILINOGEN 0.2 mg/dL (0.2-1.0); URINE WBC 2 /uL (0-25.8)
[2025-02-27 14:42] LABS: GLUCOSE,RANDOM 79.0 mg/dL (74-106)
[2025-02-27 14:43] LABS: TOT PROT 7.0 g/dl (6.4-8.2)
[2025-02-27 14:44] LABS: CO2 23.0 mmol/L (21-32)
[2025-02-27 14:46] LABS: ALK PHOS 82.0 U/L (40-150)
[2025-02-27 14:48] LABS: SGOT/AST 26.0 U/L (5-34); SGPT/ALT 18.0 U/L (0-55)
[2025-02-27 14:49] LABS: CREATININE 1.14 mg/dL (0.55-1.3)
[2025-02-27] MEDS ORDERED: MAGNESIUM SULFATE IN WATER 2 GM/50 ML IVPB IVPB ONE (15:30)
[2025-02-27] MEDS: MAGNESIUM SULFATE IN WATER 2 GM/50 ML IVPB IVPB ONE (15:49)
[2025-02-27 16:13] LABS: HIV INTERPRETATION NEGATIVE (NEGATIVE)
[2025-02-27 16:15] LABS: HCV DIAGNOSTIC IN-HOUSE W/RFLX NON-REACTIVE (NONREACTIVE)
[2025-02-27] MEDS ORDERED: MELATONIN 5 MG TABLETS PO PRN (17:27)
[2025-02-27 18:51] VITALS: BMI 32.5
[2025-02-27] MEDS: NITROGLYCERIN 2% OINTMENT - 1GM PACKET TD SCH (19:41)
[2025-02-27] MEDS: RIVAROXABAN 15 MG TABLET PO SCH (19:41)
[2025-02-27] MEDS: ACETAMINOPHEN 500 MG TABLET (FP) PO ONE (21:44)
[2025-02-27] MEDS ORDERED: HEPARIN NA (PORCINE) 5,000 UNITS/ML 1ML VIAL SQ SCH (22:00)
[2025-02-27 22:25] LABS: LDL CHOLESTEROL (ONLY SJRH) 90 mg/dL (5-100)
[2025-02-28] MEDS: LEVOTHYROXINE NA 25 MCG TABLET (FP) PO SCH (06:22)
[2025-02-28 07:16] LABS: ABSOLUTE IMMATURE GRANULOCYTES 0.10 x10^3/uL (0.0-0.031); BASOPHILS # 0.03 x10^3/uL (0.01-0.08); EOSINOPHIL % 1.7 % (0.7-5.8); EOSINOPHILS # 0.13 x10^3/uL (0.04-0.36); MCHC 32.8 g/dl (32.2-35.5); MEAN CELL VOLUME 83.2 fl (79.4-94.8); MEAN PLT VOLUME 9.8 fl (9.4-12.3); MONOCYTE # 0.40 x10^3/uL (0.24-0.86); MONOCYTE % 5.3 % (4.7-12.5); RDW 14.5 % (12.4-16.6)
[2025-02-28 07:36] LABS: GLUCOSE,RANDOM 91.0 mg/dL (74-106); TOT PROT 6.7 g/dl (6.4-8.2)
[2025-02-28 07:37] LABS: CO2 22.0 mmol/L (21-32)
[2025-02-28 07:39] LABS: ALK PHOS 86.0 U/L (40-150)
[2025-02-28 07:41] LABS: SGOT/AST 22.0 U/L (5-34); SGPT/ALT 19.0 U/L (0-55)
[2025-02-28 07:42] LABS: CREATININE 1.16 mg/dL (0.55-1.3)
[2025-02-28] MEDS: ASPIRIN COATED 81 MG TABLET.EC PO SCH (09:29)
[2025-02-28 13:52] LABS: N-TERMINAL BNP 247.5 pg/mL (0-299.9)
[2025-02-28] MEDS: ATORVASTATIN CA 10 MG TABLET (FP) PO SCH (21:30)
[2025-02-28] MEDS: POLYETHYLENE GLYCOL (HEALTHYLAX) 3350 17 GM PACKET PO SCH (21:30)
[2025-03-01 11:29] VITALS: BP 116/85; PULSE 98; RESP 17; TEMP 98.4
== END 2025-03-01 13:58 | disposition home or self-care (01) | DRG 313 ==
LOC: JER 12:20 → JERBED 16:18 → OBSVTOIN 17:28 → J4W 18:10
PROVIDERS: ADMIT Internal Medicine; ATTEND Family Medicine
DX: R07.89 Other chest pain (principal); E78.5 Hyperlipidemia, unspecified; I48.91 Unspecified atrial fibrillation; I25.2 Old myocardial infarction; E03.9 Hypothyroidism, unspecified; I12.9 Hypertensive chronic kidney disease with stage 1 through stage 4 chronic kidney disease, or unspecified chronic kidney disease; N18.9 Chronic kidney disease, unspecified
CPT/HCPCS: 36415; 71046-TC-FY; 80053; 80061; 81003; 83036; 83735; 83880; 84443; 84478; 84484; 85025; 85610; 85730; 86803; 86850; 86900; 86901; 87086; 87389; 93005; 93010; 93306-TC; 99285-25; G0378